=== PATIENT | male | born 1980 | race Caucasian/White ===

== ENCOUNTER 2020-10-06 13:53 | Emergency (ER) | payer MEDICAID, OTHER, SELFPAY ==
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
[2020-10-06 14:02] VITALS: BP 168/100; PULSE 76; RESP 18; TEMP 36.8; O2SAT 93; BMI 28.3
[2020-10-06] MEDS: iohexol 350 mg/mL 100 mL Btl IV (14:44)
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
[2020-10-06 15:40] VITALS: BP 170/89; PULSE 74; RESP 18; O2SAT 96
--- NOTE | 2020-10-06 15:41 | PC.NURSE ---
patient c/o pins and needles sensation to both hands, MD awared.
[2020-10-06 15:50] LABS: Basophils # 0.1 10^3/uL (0.0-0.1); Basophils % 0.4 %; Eosinophils # 0.2 10^3/uL (0.0-0.8); Eosinophils % 1.3 %; Hematocrit 42.4 % (42.0-52.0); Lymphocytes # 2.7 10^3/uL (0.8-4.8); Lymphocytes % 17.1 %; Mean Corpuscular Hemoglobin 30.1 pg (28.0-34.0); Mean Corpuscular Volume 91.2 fL (80-94); Mean Platelet Volume 11.1 fL (7.4-10.4); Monocytes # 1.1 10^3/uL (0.2-0.9); Monocytes % 6.6 %; Neutrophils # 11.86 10^3/uL (1.8-7.7); Neutrophils % 74.1 %; Nucleated Red Blood Cells % 0 %; Platelet Count 294 10^3/cmm (130-400); Red Blood Count 4.65 10^6/uL (4.1-5.3)
[2020-10-06 15:51] LABS: Add Urine Microscopic? NO; Charge for UA Resulting for Rev
[2020-10-06 15:59] LABS: Bilirubin Urine Neg (Negative); Blood Urine Neg (Negative); Glucose Urine UA Norm (Normal); Ketones Urine Negative (Negative); Leukocyte Esterase Urine Negative (Negative); Nitrate Urine Negative (Negative); Protein Urine Neg (Negative); Urine Appearance Clear (CLEAR); Urine Color Yellow (Yellow); Urobilinogen Urine Norm (Negative); pH Urine 5 (5-7)
[2020-10-06] MEDS: HYDROmorphone 1 mg/mL INJ 1 mL 0.5 MG IVP (16:03)
[2020-10-06 16:07] VITALS: BP 160/93; PULSE 72; RESP 16; O2SAT 95
[2020-10-06 16:22] LABS: Alanine Aminotransferase 29 U/L (0-41); Albumin Level 4.1 g/dL (3.5-5.2); Alcohol Level < 10 mg/dL (0-10); Alkaline Phosphatase 61 IU/L (40-130); Anion Gap 14.3 (5-19); Aspartate Amino Transferase 32 U/L (0-40); Blood Urea Nitrogen 11 mg/dL (6-20); Calcium 8.4 mg/dL (8.5-10.5); Carbon Dioxide 24 mmol/L (22-29); Chloride 102 mmol/L (98-107); Globulin 2.2 g/dL (1.3-4.6); Glomerular Filtration Rate 148.5 mL/min (90-130); Glucose 95 mg/dL (65-115); Osmolality Calculated 281 mOsm/kg (285-295); Potassium 4.3 mmol/L (3.5-5.1); Sodium 136 mmol/L (136-145); Total Bilirubin 0.2 mg/dL (0.15-1.2); Total Protein 6.3 g/dL (6.6-8.7)
[2020-10-06 16:23] LABS: Creatine Phosphokinase 556 U/L (39-308)
--- NOTE | 2020-10-06 16:42 | PC.NURSE ---
c-collar removed per MD order, patient tolerated well.
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
--- NOTE | 2020-10-10 13:22 | DCPLANNER ---
sow manager had message to schedule a follow up appointment for patient with ENT. sow manager emailed patients information to Gladis Yeung and Katherine at [facility] ENT clinic. Patients information will be printed and reviewed. Clinic will call patient with appointment information.
--- NOTE | 2020-10-11 08:09 | DCPLANNER ---
Anjana from the ENT clinic contacted window caser stating that when patient was contacted to schedule a follow up appointment, that patient declined appointment at this time, already had an appointment scheduled with Dr. Morales.
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
== END 2020-10-06 17:15 | disposition home or self-care (01) ==
PROVIDERS: Emergency Provider Family Medicine
DX: S02.2XXA Fracture of nasal bones, initial encounter for closed fracture (principal); V49.50XA Passenger injured in collision with unspecified motor vehicles in traffic accident, initial encounter
CPT/HCPCS: 36415; 70450; 70486; 71275; 72125; 72128; 72131; 73030; 73562; 74177; 80053; 80307; 81003; 82550; 85025; 96374; 99283; J1170; Q9967

== ENCOUNTER 2020-10-11 15:52 | Outpatient (CLI) | payer MEDICAID, SELFPAY ==
--- NOTE | 2020-10-11 16:36 | ECG_ITS ---
[facility] Test Date: 2020-10-11 Pat Name: Oliver Monaco Department: Room: Gender: Male Spouter: : 1980 Requested By: Ayo Bowman Order Number: [id number] Laya MD: Lizeth Hammond M.D. Measurements Intervals [place] Rate: 67 P: 57 NC: 179 QRS: 20 QRSD: 89 T: -21 QT: 374 QTc: 397 Interpretive Statements SINUS RHYTHM NONSPECIFIC T-WAVE ABNORMALITY Compared to ECG 01/20/2019 16:08:16 No significant changes Electronically Signed On 10-11-2020 23:04:22 CDT by Lizeth Hammond M.D. [email or web address]
== END 2020-10-11 15:53 | disposition home or self-care (01) ==
LOC: RT 15:59
PROVIDERS: Visit Provider Specialist
DX: S02.2XXA Fracture of nasal bones, initial encounter for closed fracture (principal); X58.XXXA Exposure to other specified factors, initial encounter
CPT/HCPCS: 93005

== ENCOUNTER → 2020-10-13 10:53 | Outpatient (BNVA) | payer OTHER, SELFPAY | PROVIDERS: Visit Provider Specialist | DX: Z01.812 Encounter for preprocedural laboratory examination (principal); Z20.822 Contact with and (suspected) exposure to COVID-19; Z11.52 Encounter for screening for COVID-19 | CPT/HCPCS: 87635 ==

== ENCOUNTER 2020-10-14 10:05 | Emergency (ER) | payer MEDICAID, SELFPAY ==
[2020-10-14 10:12] VITALS: BP 156/110; PULSE 92; RESP 15; TEMP 36.8; O2SAT 98; BMI 30.5
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
== END 2020-10-14 10:42 | disposition home or self-care (01) ==
PROVIDERS: Emergency Provider Physician Assistant
DX: S02.2XXA Fracture of nasal bones, initial encounter for closed fracture (principal); V89.2XXA Person injured in unspecified motor-vehicle accident, traffic, initial encounter
CPT/HCPCS: 99281

== ENCOUNTER 2020-10-17 06:43 | Day surgery (SDC) | payer MEDICAID, SELFPAY ==
[2020-10-16 18:10] VITALS: BMI 29.2
[2020-10-17] VITALS (19 sets, daily range): BP systolic 117–179; BP diastolic 74–122; PULSE 62–80; RESP 12–18; TEMP 36.3–36.8; O2SAT 95–99
[2020-10-17] MEDS: sodium chloride 0.9% 1,000 ML 30 ML IV (07:28)
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
[2020-10-17] MEDS: fentaNYL 50 mcg/mL INJ 2mL IVP ×2 (08:03→10:08)
--- NOTE | 2020-10-17 08:20 | W.PM.OPSUD ---
Surgery/Procedure H&P Update DATE OF PROCEDURE: October 17, 2020 DATE H&P PERFORMED: 10/11/20 H&P UPDATE INFORMATION: I have reviewed H&P completed within last 30 days, I have examined patient prior to procedure and No changes to prior documentation PREOP DIAGNOSIS: Displaced nasal fracture; nasal obstruction PLANNED PROCEDURE: Operation Date: 10/17/20 08:15 Proposed Procedures p Closed Reduction Nasal Fracture [id number](Not Applicable) - Ayo Morales MD s Septoturbinoplasty(Not Applicable) - Ayo Morales MD
[2020-10-17] MEDS: oxymetazoline 0.05% Nasal Spray 15 mL 1 SPRAY NOSTRIL-B ×2 (08:45→10:05)
[2020-10-17] MEDS: mineral oil light VIAL 10 mL MISCELLANE (09:20)
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
--- NOTE | 2020-10-17 10:03 | P.PCN_ITS ---
Documented by User: Nick Rodriguez CRNA 10/17/20 10:03 PACU note PACU note: VSS, Good respiratory effort, report to CARD CLOTHIER Post-Anesthesia Exam: awake
[2020-10-17] MEDS: mupirocin oint 22 gm 1 APPLIC NOSTRIL-B (10:07)
[2020-10-17] MEDS: HYDROmorphone 1 mg/mL INJ 1 mL 0.5 MG IVP (10:14)
[2020-10-17] MEDS: metoprolol tartrate 1 mg/1 mL SDV 5 mL 5 MG IV (10:29)
--- NOTE | 2020-10-17 10:52 | SUR.PHASEI ---
pt dozing mostly states pain is better, BP NOW COMING DOWN SEE DELROY LAMBERT AFTER DR COLVIN CONSULTED, PT REPORT AT BEDSIDE PT TO PHASE2 TO CONTINUE TO WATCH PT BP.
[2020-10-17] MEDS: oxyCODONE-APAP 5-325 mg Tablet 1 TAB PO (11:11)
[2020-10-17] MEDS: hyDRALAzine 20 mg/mL INJ 1 mL 10 MG IVP (11:34)
--- NOTE | 2020-10-17 14:58 | ANE.PACU2 ---
Inpatient post-anesthesia follow up: Airway intact: Yes Vital signs: Temperature 98.2 F Pulse Rate 62 Respiratory Rate 16 Blood Pressure 117/74 Pulse Oximetry 99 Oxygen Delivery Me thod Room Air Oxygen Flow Rate Fraction of Inspir ed Oxygen Hydration adequate: Yes Nausea and vomiting: No Pain level: 3 Mental status: Baseline Additional Comments: Difficult blood pressure control
== END 2020-10-17 12:20 | disposition home or self-care (01) ==
PROVIDERS: Visit Provider Specialist
PROC: 0NSBXZZ Reposition Nasal Bone, External Approach (ICD-10-PCS; CPT 21337; principal; 2020-10-17 08:05)
PROC: (CPT 30520; 2020-10-17 08:05)
DX: S02.2XXA Fracture of nasal bones, initial encounter for closed fracture (principal); X58.XXXA Exposure to other specified factors, initial encounter; J34.89 Other specified disorders of nose and nasal sinuses; J44.9 Chronic obstructive pulmonary disease, unspecified; I10 Essential (primary) hypertension
CPT/HCPCS: 21337; 12345; 88305; 88311; 96374; J0330; J0360; J1100; J1170; J2405; J2704; J3010; J3490; J7030

== ENCOUNTER → 2020-11-07 08:26 | Outpatient (BNVA) | payer MEDICAID, SELFPAY | PROVIDERS: Referring Provider Family Medicine; Visit Provider Orthopaedic Surgery | DX: M47.892 Other spondylosis, cervical region (principal); M47.896 Other spondylosis, lumbar region; M54.2 Cervicalgia | CPT/HCPCS: 72050; 72110 ==

== ENCOUNTER 2020-11-12 11:28 | Emergency (ER) | payer MEDICAID, SELFPAY ==
[2020-11-12 11:56] VITALS: BP 188/108; PULSE 71; RESP 18; TEMP 36.7; O2SAT 98; BMI 30.9
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
[2020-11-12 12:13] VITALS: BP 171/101; PULSE 73; RESP 16; O2SAT 96
[2020-11-12 12:28] VITALS: BP 161/104; PULSE 73; RESP 18; O2SAT 97
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
--- NOTE | 2020-11-14 10:21 | DCPLANNER ---
mine manager had message to speak with patient about getting established with a primacy care physician. mine manager spoke with patient, he stated that he would like to get established with a primary care physician, but does not have insurance at this time. Patient stated that he would like for case hardener to send him the associate financial planner applications for the hospital to fill out and turn back in. After patient finds out if he will qualify for associate financial planner, that he will then get established with someone.
== END 2020-11-12 12:40 | disposition home or self-care (01) ==
PROVIDERS: Emergency Provider Physician Assistant
DX: M79.642 Pain in left hand (principal); M25.551 Pain in right hip; F17.210 Nicotine dependence, cigarettes, uncomplicated; V89.2XXA Person injured in unspecified motor-vehicle accident, traffic, initial encounter
CPT/HCPCS: 73130; 73502; 99283

== ENCOUNTER 2020-11-15 10:56 | Emergency (ER) | payer MEDICAID, SELFPAY ==
[2020-11-15 11:08] VITALS: BP 177/126; PULSE 103; RESP 16; TEMP 36.2; O2SAT 96; BMI 29.2
--- NOTE | 2020-11-15 12:24 | ED_ITS ---
HPI - General Adult General: Chief complaint: General Medical Stated complaint: NOSE PAIN Time Seen by Provider: 11/15/20 11:15 History of Present Illness: HPI narrative: Patient states his nose did not feel right. Just had a follow-up visit with his ENT doctor who said everything was fine. MD complaint: Nasal discomfort Associated symptoms: Reports no associated symptoms; Deny chest pain, dyspnea, headache(s), nausea, rash or vomiting Review of Systems Const: Denies: fever(s), chills or body aches Eyes: Denies: change in vision or blurry vision ENMT: Reports: other (Says nose bridge has a divot in); Denies: throat pain or nasal congestion Card: Denies: chest pain or dyspnea on exertion Resp: Denies: dyspnea, productive cough or non-productive cough GI: Denies: abdominal pain, nausea or vomiting : Denies: difficulty urinating Musc: Denies: extremity pain Skin/Breast: Denies: rash Neuro: Denies: headache(s) Psych: Denies: anxiety or depression Dillan/Lymph: Denies: easy bruising PFSH ED PFSH: Social History Smoking and tobacco status: current every day smoker Physical Exam Const: COMMON NORMALS: no acute distress HENMT: NOSE: Other nasal findings present (There is slight divot on the nasal bridge. Mild swelling going on anterior) Psych: COMMON NORMALS: mental status grossly normal Course Vital Signs: Vital signs: Vital Signs Temperature 97.2 F L 11/15/20 11:08 Pulse Rate 103 H 11/15/20 11:08 Respiratory Rate 16 11/15/20 11:08 Blood Pressure 177/126 11/15/20 11:08 Pulse Oximetry 96 11/15/20 11:08 MDM - General Adult MDM Narrative: Medical decision making narrative: Noticed still has slight swelling in it in which more likely is the cause of his problem he can use Afrin nose spray which he is watch which she said helped and has been using contact solution in his nose and I asked him to stop that and just use [place]. Is a follow-up with ear nose throat doctor. Discharge Plan Discharge Patient Disposition: Home Clinical Impression: Nasal discomfort Condition: Stable Prescriptions: No Action prednisone 20 mg tablet 20 mg PO DAILY Qty: 15 RF: 0 Percocet 5-325 mg tablet 1 tab PO Q6H PRN (Reason: pain) Qty: 25 RF: 0 Discharge Orders: Discharge ED (Routine); Ordered 11/15/20 Ordered By: Eleuterio Oakes Discharge Diet: Usual diet Discharge Activity: Resume usual activity Activity Restrictions/Additional Instructions: Follow-up with surgeon as directed. Can use Afrin nose spray. Can use nasal [place]. Coding Level of Care Code ED Data Scientist for Amanda Boone
== END 2020-11-15 11:35 | disposition home or self-care (01) ==
PROVIDERS: Emergency Provider Nurse Practitioner Family
DX: J34.89 Other specified disorders of nose and nasal sinuses (principal); F17.200 Nicotine dependence, unspecified, uncomplicated
CPT/HCPCS: 99281

== ENCOUNTER 2020-12-05 15:01 | Outpatient (RCR) | payer MEDICAID, SELFPAY | END 2020-12-05 23:59 | disposition home or self-care (01) | LOC: SPT 15:01 | PROVIDERS: Referring Provider Orthopaedic Surgery; Visit Provider Orthopaedic Surgery | DX: M54.2 Cervicalgia (principal); M54.5 Low back pain | CPT/HCPCS: 97110; 97161 ==

== ENCOUNTER 2020-12-07 13:58 | Outpatient (RCR) | payer MEDICAID, SELFPAY | END 2021-01-04 23:59 | disposition home or self-care (01) | LOC: SPT 13:58 | PROVIDERS: Referring Provider Orthopaedic Surgery; Visit Provider Orthopaedic Surgery | DX: M54.2 Cervicalgia (principal); M54.5 Low back pain | CPT/HCPCS: 97110; 97530 ==

== ENCOUNTER 2021-01-05 06:00 | Outpatient (RCR) | payer MEDICAID, SELFPAY | END 2021-02-04 23:59 | disposition home or self-care (01) | LOC: SPT 06:00 | PROVIDERS: Referring Provider Orthopaedic Surgery; Visit Provider Orthopaedic Surgery | DX: M54.50 Low back pain, unspecified (principal); M54.2 Cervicalgia | CPT/HCPCS: 97110 ==

== ENCOUNTER 2021-03-20 16:24 | Outpatient (CLI) | payer BC, MEDICAID, SELFPAY ==
--- NOTE | 2021-03-20 16:45 | MR_ITS ---
WS: [id number] MRI LUMBAR SPINE NONCONTRAST TECHNIQUE: Sagittal T1, T2 and STIR imaging. Axial T1 and T2 imaging. CLINICAL INFORMATION: M43.17 - Spondylolisthesis, lumbosacral region COMPARISON: CT lumbar 10/25 FINDINGS: Mild lumbar curve. No acute compression. No high-grade central canal stenosis. Slight anterolisthesis L5 on S1 unchanged since prior CT October 06, 2020. Bilateral pars defects L5-S1. L1-L2: Normal. L2-L3: Normal. L3-L4: Minimal annular bulging. Slight effacement of ventral thecal sac. Spinal canal and foramen are patent. Mild facet arthropathy. L4-L5: Mild annular bulging with slight effacement of the ventral thecal sac. Eccentric disc bulging results in mild left greater than right foraminal narrowing. Mild facet arthropathy. Spinal canal is patent. L5-S1: Grade 1 anterolisthesis L5 on S1 with chronic bilateral pars defects. Mild annular bulging wit h slight effacement of ventral thecal sac. Spinal canal and foramen are patent. Mild facet arthropath y. A few tiny protrusions in the thoracic spine seen on the aircraft quality control inspector imaging more prominent at T5-T6 and T7 -T8. Slight contact of the thoracic cord with mild central canal stenosis at T7-T8. Mild central mariana l stenosis in cervical spine at C4-C6 with slight disc osteophyte complexes. Visualized pelvic bony structures: Normal. Paravertebral soft tissues: Normal. MR/MR lumbar spine wo con* [id number] IMPRESSION: 1. Grade 1 anterolisthesis L5 on S1 with chronic bilateral pars defects. Spina l canal and foramen are patent at this level. 2. Mild annular bulging L4-5 with mild left L4-5 foraminal narrowing. 3. Mild facet arthropathy L3-L5. 4. Shallow disc protrusions in the thoracic spine seen on the aircraft quality control inspector imaging at T5-T6 and T7-T8 with mild central canal stenosis at T7-T8. This could be furth er evaluated with thoracic spine MRI .
== END 2021-03-20 16:25 | disposition home or self-care (01) ==
LOC: RADSHAW 16:28
PROVIDERS: PCP Family Medicine Adult Medicine; Visit Provider Orthopaedic Surgery
DX: M43.17 Spondylolisthesis, lumbosacral region (principal); M51.24 Other intervertebral disc displacement, thoracic region; M47.816 Spondylosis without myelopathy or radiculopathy, lumbar region; M51.26 Other intervertebral disc displacement, lumbar region
CPT/HCPCS: 72148

== ENCOUNTER → 2021-04-10 14:48 | Outpatient (BNVA) | payer BC, MEDICAID, SELFPAY | PROVIDERS: PCP Family Medicine Adult Medicine; Visit Provider Family Medicine Adult Medicine | DX: G47.00 Insomnia, unspecified (principal); I10 Essential (primary) hypertension | CPT/HCPCS: 80053; 83036; 84443; 85025; G0103 ==

== ENCOUNTER → 2021-05-03 09:59 | Outpatient (BNVA) | payer BC, MEDICAID, SELFPAY | PROVIDERS: PCP Family Medicine Adult Medicine; Referring Provider Physician Assistant; Visit Provider Anesthesiology Pain Medicine | DX: M51.16 Intervertebral disc disorders with radiculopathy, lumbar region (principal); M47.816 Spondylosis without myelopathy or radiculopathy, lumbar region; M43.17 Spondylolisthesis, lumbosacral region; M79.604 Pain in right leg; M79.605 Pain in left leg; F17.200 Nicotine dependence, unspecified, uncomplicated | CPT/HCPCS: 99204 ==

== ENCOUNTER → 2021-05-15 14:39 | Outpatient (BNVA) | payer BC, MEDICAID, SELFPAY | PROVIDERS: PCP Family Medicine Adult Medicine; Visit Provider Anesthesiology Pain Medicine | DX: M54.16 Radiculopathy, lumbar region (principal); M79.604 Pain in right leg; F17.210 Nicotine dependence, cigarettes, uncomplicated | CPT/HCPCS: 64483; 64484; J1100; J3490 ==

== ENCOUNTER → 2021-05-29 10:17 | Outpatient (BNVA) | payer BC, MEDICAID, SELFPAY | PROVIDERS: PCP Family Medicine Adult Medicine; Visit Provider Anesthesiology Pain Medicine | DX: M43.17 Spondylolisthesis, lumbosacral region (principal); M51.16 Intervertebral disc disorders with radiculopathy, lumbar region; M47.816 Spondylosis without myelopathy or radiculopathy, lumbar region; M79.604 Pain in right leg; F17.210 Nicotine dependence, cigarettes, uncomplicated | CPT/HCPCS: 99214 ==

== ENCOUNTER 2021-06-02 09:59 | Outpatient (CLI) | payer BC, MEDICAID, SELFPAY ==
--- NOTE | 2021-06-02 10:12 | MR_ITS ---
WS: [id number] MRI RIGHT KNEE HISTORY: M25.561 - Pain in right knee COMPARISON: Radiographs 03/24/2019 Anterior cruciate ligament: Completely torn ACL. No normal fibers are identified. There is posterior translation of the femoral condyle with relationship to the tibial plateau. Posterior cruciate ligament: Posterior buckling due to the torn ACL. Medial collateral ligament: Mild increased signal in the MCL at the level of the knee joint. No full- thickness tear. Posterior lateral corner structures: There is a very small amount of increased signal in the proximal lateral collateral ligament. No full-thickness tear. Medial menisci: Small caliber anterior posterior 1's with mild increased signal fraying along the long faces. Degenerative changes with no tear identified. Lateral meniscus: Increased T2 signal extending over length of the posterior horn. Extending from the middle to posterior third of the meniscus and extends to the superior and inferior articular surface s. Extensor mechanism: Distal quadriceps tendon and patellar tendons are intact. Fluid and soft tissue: Very small suprapatellar joint effusion. No Herrera's cyst. Osseous and articular structures: Patellofemoral compartment: Very mild narrowing of the patellofemoral compartment. The cartilage is w ell preserved with only a small amount of chondromalacia involving the medial most patellar facet. Medial compartment: Mild narrowing medial compartment with marginal osteophytes. Moderate chondromala calli involving the cartilage. No marrow edema. Lateral compartment: Mild narrowing of the lateral compartment with mild thinning of the cartilage an d marginal osteophytes. MR/MR knee RT wo con* [id number] IMPRESSION: 1. Complete tear ACL. 2. Degenerative changes with fraying involving the anterior and posterior meni sci within the medial compartment. No tear. Most significant fraying involves t he posterior horn with blunting of the free edge. 3. Minimal chondromalacia medial most patellar facet. 4. Mild narrowing of the medial and lateral compartments with moderate chondro malacia in the medial compartment and mild in the lateral compartment. 5. No marrow edema or fracture.
== END 2021-06-02 10:00 | disposition home or self-care (01) ==
LOC: RAD 10:00
PROVIDERS: PCP Family Medicine Adult Medicine; Visit Provider Physician Assistant
DX: S83.511A Sprain of anterior cruciate ligament of right knee, initial encounter (principal); X58.XXXA Exposure to other specified factors, initial encounter; M22.41 Chondromalacia patellae, right knee
CPT/HCPCS: 73721; 99204

== ENCOUNTER 2021-06-04 17:42 | Emergency (ER) | payer BC, MEDICAID, SELFPAY ==
[2021-06-04 17:56] VITALS: BP 131/85; PULSE 94; RESP 16; TEMP 37.5; O2SAT 96; BMI 28.3
--- NOTE | 2021-06-04 18:02 | ED_ITS ---
HPI - Skin/Abscess/Foreign Bdy General: Chief complaint: Skin/Abscess/Foreign Body Stated complaint: PT states May have an Infection in thumb Time Seen by Provider: 06/04/21 18:02 History of Present Illness: 41-year-old male patient comes in today with complaints of infection to the right thumb. Patient reports that his dog 3 to 4 days ago had scratched him on the dorsal thumb. Since then he has had some drainage from the wound. Patient reports opening the wound and keeping it draining. Patient does have some noticeabe red streaking to the distal forearm. Normal range of motion of the hand is noted. Associated symptoms: Deny fever(s) Review of Systems Const: Denies: fever(s) Musc: Reports: extremity pain (Right thumb) Skin/Breast: Reports: erythema PFSH ED PFSH: Medical History Anxiety and depression HTN (hypertension) New onset type 2 diabetes mellitus HgA1C 04-10-2021 6.3 Smoker Spondylolisthesis at L5-S1 level Social History Smoking and tobacco status: current every day smoker Second hand smoke exposure: Yes Alcohol intake: never Marital status: Current occupational status: unemployed Physical Exam Const: COMMON NORMALS: alert HENMT: COMMON NORMALS: atraumatic HEAD & SCALP: atraumatic Neck/C-Spine: COMMON NORMALS: full ROM Resp: COMMON NORMALS: normal respiratory effort and clear to auscultation bilaterally AUSCULTATION: clear to auscultation bilaterally Cardio: COMMON NORMALS: regular rate and regular rhythm RATE: regular rate RHYTHM: regular rhythm Extremity: RIGHT UPPER EXTREMITY: Yes hand & digits (Pustular lesion noted to the dorsal proximal phalanx of the thumb) Right hand and digits: Yes inspection, Yes palpation, Yes ROM exam, Yes neurovascular exam and Yes tendon exam Neuro: SENSORIUM/ORIENTATION: Yes alert Psych: COMMON NORMALS: cooperative Skin: WOUNDS: Yes wounds noted (Dorsal right thumb, 6 cm streaking) with surrounding erythema Procedures Abscess I/D Site: hand (Right thumb) Technique: other (Incise bevel 18-gauge needle) Amount of fluid expressed (mL): 0.1 Course Vital Signs: Vital signs: Vital Signs Temperature 99.5 F 06/04/21 18:07 Pulse Rate 94 06/04/21 18:07 Respiratory Rate 16 06/04/21 18:07 Blood Pressure 131/85 06/04/21 18:07 Pulse Oximetry 96 06/04/21 18:07 MDM - Skin/Abscess/Foreign Bdy Medicial Decision Making Patient comes in with a wound to the back of his right thumb at the mid proximal phalanx. Patient does have a wound that has clear to purulent drainage. Patient has surrounding erythema with streaking about 6 cm. Normal range of motion of the thumb is noted. Cap refill is intact. Differential diagnosis includes but not limited to cellulitis, abscess, lymphangitis. Wound was opened up with the bevel of 18-gauge needle, minimal drainage was noted. Patient is afebrile and appears nontoxic. We will start patient on clindamycin 450 mg, patient will be continued on 300 mg 3 times a day for next 7 days. Patient was encouraged to keep the wound clean and dry. Avoid pressing or sticking the wound with needles. Patient reports understanding of care plan need for follow- up with primary care as needed. Or return to the ER for worsening symptoms. Discharge Plan Discharge Patient Disposition: Home Clinical Impression: Cellulitis Qualifiers: Site of cellulitis: extremity Site of cellulitis of extremity: finger Laterality: right Qualified Code(s): L03.011 - Cellulitis of right finger Condition: Stable Prescriptions: New clindamycin HCl 300 mg capsule 300 mg PO TID 7 Days Qty: 21 0RF No Action medical marijuana inhalation 0RF gabapentin 300 mg capsule 300 mg PO TID Qty: 90 0RF (DME) TENS Replacement Back Pads 3.74 X 7.48 pad See Rx Instructions miscellaneous .MEDSUPPLY Qty: 2 0RF Rx Instructions: As directed (DME) TENS 502 Device See Rx Instructions .MEDSUPPLY Qty: 1 0RF Rx Instructions: As directed (DME) TENS unit and electrodes Combo Pack See Rx Instructions .ROUTE Qty: 1 0RF Rx Instructions: As directed lisinopril 20 mg tablet 20 mg PO DAILY Qty: 30 5RF paroxetine HCl 20 mg tablet 20 mg PO .qhs Qty: 30 1RF nicotine 21-14-7 mg/24 hr patch, TD daily, sequential See Rx Instructions transdermal .COMPLEX Qty: 56 0RF Rx Instructions: apply 1-21 mg NICOTINE PATCH daily for 28 days; follow with 1-14 mg PATCH daily for 14 days, then 1-7mg PATCH daily for 14 days transdermal guaifenesin 1,200 mg tablet extended release 12hr 1,200 mg PO BID PRN (Reason: cough & congestion) Qty: 60 1RF metformin 500 mg tablet 500 mg PO DAILY Qty: 30 5RF Discharge Orders: Discharge ED (Routine); Ordered 06/04/21 Ordered By: Mynor Muñiz Referrals: Andrew Schuler MD [Primary Care Provider] - Discharge Diet: Usual diet Discharge Activity: Increase activity as tolerated Patient Instructions: Cellulitis (ED), Opioid Safety Activity Restrictions/Additional Instructions: Take antibiotics as directed. Drink plenty of water with medication. Activity as tolerated. Monitor for worsening swelling, fever greater than 100.4, or new concerns. Follow-up with primary care in 3 days for recheck. Return to ER for new concerns. Coding Level of Care Code ED Php [employer] Developer for Amanda Boone
[2021-06-04 18:07] VITALS: BP 131/85; PULSE 94; RESP 16; TEMP 37.5; O2SAT 96
[2021-06-04] MEDS: clindamycin 150 mg Capsule 450 MG PO (18:19)
[2021-06-04] MEDS: bacitracin ointment Pkt 1 EACH TOPICAL (18:20)
[2021-06-04] MEDS: HYDROcodone-acetaminophen 5-325 mg Tablet 2 TAB PO (18:32)
== END 2021-06-04 18:35 | disposition home or self-care (01) ==
PROVIDERS: Emergency Provider Nurse Practitioner Family; PCP Family Medicine Adult Medicine
DX: L03.011 Cellulitis of right finger (principal); I10 Essential (primary) hypertension; E11.9 Type 2 diabetes mellitus without complications; F17.210 Nicotine dependence, cigarettes, uncomplicated
CPT/HCPCS: 99283

== ENCOUNTER → 2021-06-06 11:06 | Outpatient (BNVA) | payer BC, MEDICAID, SELFPAY | PROVIDERS: PCP Family Medicine Adult Medicine; Visit Provider Family Medicine Adult Medicine | DX: E11.9 Type 2 diabetes mellitus without complications (principal) | CPT/HCPCS: 83036 ==

== ENCOUNTER → 2021-06-13 10:41 | Outpatient (BNVA) | payer BC, MEDICAID, SELFPAY | PROVIDERS: PCP Family Medicine Adult Medicine; Referring Provider Family Medicine Adult Medicine; Visit Provider Orthopaedic Surgery | DX: S83.511A Sprain of anterior cruciate ligament of right knee, initial encounter (principal); X58.XXXA Exposure to other specified factors, initial encounter; M17.12 Unilateral primary osteoarthritis, left knee | CPT/HCPCS: 73560; 73565 ==

== ENCOUNTER → 2021-06-25 10:21 | Outpatient (BNVA) | payer BC, MEDICAID, SELFPAY | PROVIDERS: PCP Family Medicine Adult Medicine; Visit Provider Anesthesiology Pain Medicine | DX: M43.17 Spondylolisthesis, lumbosacral region (principal); M51.16 Intervertebral disc disorders with radiculopathy, lumbar region; M47.816 Spondylosis without myelopathy or radiculopathy, lumbar region; S83.511A Sprain of anterior cruciate ligament of right knee, initial encounter; M79.604 Pain in right leg; F17.210 Nicotine dependence, cigarettes, uncomplicated; X58.XXXA Exposure to other specified factors, initial encounter | CPT/HCPCS: 99214 ==

== ENCOUNTER 2021-07-10 12:34 | Emergency (ER) | payer BC, MEDICAID, SELFPAY ==
[2021-07-10 12:44] VITALS: BP 119/78; PULSE 101; RESP 16; TEMP 36.3; O2SAT 97; BMI 29.1
[2021-07-10 15:17] LABS: Basophils # 0.1 10^3/uL (0.0-0.1); Basophils % 0.4 %; Eosinophils # 0.3 10^3/uL (0.0-0.8); Eosinophils % 1.9 %; Hematocrit 51.3 % (42.0-52.0); Hemoglobin 17.3 g/dL (11.7-16.6); Lymphocytes # 4.2 10^3/uL (0.8-4.8); Lymphocytes % 30.2 %; Mean Corpuscular HGB Conc 33.7 g/dL (30.0-36.0); Mean Corpuscular Hemoglobin 31.1 pg (28.0-34.0); Mean Corpuscular Volume 92.1 fl (80-94); Monocytes % 7.3 %; Neutrophils # 8.24 10^3/uL (1.8-7.7); Neutrophils % 59.8 %; Nucleated Red Blood Cells % 0 %; Platelet Count 351 10^3/cmm (130-400); Red Blood Count 5.57 10^6/uL (4.1-5.3); Red Cell Distribution Width 13.3 % (12.1-15.1); White Blood Count 13.8 10^3/uL (4.0-10.0)
[2021-07-10 15:30] LABS: Alanine Aminotransferase 20 U/L (0-41); Albumin Level 5.3 g/dL (3.5-5.2); Alkaline Phosphatase 81 IU/L (40-130); Anion Gap 20.4 (5-19); Aspartate Amino Transferase 20 U/L (0-40); Blood Urea Nitrogen 18 mg/dL (6-20); Calcium 10.2 mg/dL (8.5-10.5); Carbon Dioxide 22 mmol/L (22-29); Chloride 99 mmol/L (98-107); Globulin 3.1 g/dL (1.3-4.6); Glomerular Filtration Rate 81.9 mL/min (90-130); Glucose 104 mg/dL (65-115); Lipase 37 U/L (13-60); Osmolality Calculated 286 mOsm/kg (285-295); Potassium 4.4 mmol/L (3.5-5.1); Sodium 137 mmol/L (136-145); Total Bilirubin 0.2 mg/dL (0.15-1.2); Total Protein 8.4 g/dL (6.6-8.7)
[2021-07-10 15:38] VITALS: BP 124/74; PULSE 82; RESP 14; O2SAT 97
[2021-07-10] MEDS: sodium chloride 0.9% 1,000 ML 999 ML IV (15:39)
[2021-07-10] MEDS: ondansetron 2 mg/ML SDV 2 mL 4 MG IVP (15:39)
[2021-07-10 15:44] LABS: Add Urine Microscopic? YES; Bilirubin Urine 1+ (Negative); Blood Urine Neg (Negative); Glucose Urine UA Norm (Normal); Ketones Urine Negative (Negative); Leukocyte Esterase Urine Negative (Negative); Nitrate Urine Negative (Negative); Protein Urine 1+ (Negative); Urine Appearance Hazy (CLEAR); Urine Color Amber (Yellow); Urobilinogen Urine 1 mg/dL (Negative); pH Urine 5 (5-7)
[2021-07-10 15:45] LABS: Add Urine Culture? Yes; Bacteria Urine TRACE /hpf; Mucus Urine 4+ /hpf; RBC Urine RARE /hpf (0-2); Squamous Epithelial Cell Urine 0-4 /hpf (0-5); WBC Urine 0-4 /hpf (0-5)
--- NOTE | 2021-07-10 15:51 | ED_ITS ---
HPI - Nausea/Vomiting/Diarrhea General: Chief complaint: Nausea/Vomiting/Diarrhea Stated complaint: n/v/d , flu like symptoms Time Seen by Provider: 07/10/21 15:11 Source: patient Mode of arrival: ambulatory Limitations: no limitations History of Present Illness: 41-year-old male presents emergency room with complaint of nausea and vomiting mild abdominal cramping began 2 days ago. He has had a little bit of blood streaking in the stools but he states that predates the onset of the symptoms he has had a lot of nausea and some vomiting no coffee-ground emesis no hematemesis no dysuria urgency or frequency no specific abdominal pain at this time MD elicited complaint: nausea, vomiting and diarrhea Onset (ago): day(s) (2) Description of vomiting: watery and bilious Description of diarrhea: blood (Street) Associated nausea: Yes Associated abdominal pain: No Location of pain: None Exacerbating factors: none Relieving factors: none Associated symtoms: Reports bloating, anorexia, malaise, nausea and weakness; Denies altered mental status, anxiety, change in vision, chest pain, cough, diaphoresis, decreased urine output, dizziness, dysuria, epistaxis, fatigue, fecal incontinence, fevers/chills, headache(s), myalgias, numbness, palpitations, rash, short of breath, syncope, tenesmus or tinnitus Review of Systems Const: Reports: malaise; Denies: fatigue or diaphoresis Eyes: Denies: change in vision ENMT: Denies: tinnitus or epistaxis Card: Denies: chest pain, palpitations or syncope Resp: Denies: dyspnea, productive cough or non-productive cough GI: Reports: nausea and bloating; Denies: fecal incontinence : Denies: dysuria Skin/Breast: Denies: rash or pruritus Neuro: Denies: headache(s) or dizziness Psych: Denies: anxiety PFSH ED PFSH: Medical History Anxiety and depression Complete tear of right ACL HTN (hypertension) New onset type 2 diabetes mellitus HgA1C 04-10-2021 6.3 Smoker Spondylolisthesis at L5-S1 level Social History Smoking and tobacco status: current every day smoker Second hand smoke exposure: Yes Alcohol intake: never Marital status: Current occupational status: unemployed Physical Exam Const: COMMON NORMALS: no acute distress EXAM LIMITATIONS: no altered mental status GENERAL APPEARANCE: cooperative and comfortable OR IENTATION/CONSCIOUSNESS: Yes awake, Yes oriented to person, Yes oriented to place and Yes oriented to time HENMT: COMMON NORMALS: normocephalic, atraumatic and hearing grossly normal bilaterally HEAD & SCALP: normocephalic and atraumatic Neck/C-Spine: COMMON NORMALS: no JVD Resp: COMMON NORMALS: normal respiratory effort, No retractions, No use of accessory muscles and clear to auscultation bilaterally AUSCULTATION: clear to auscultation bilaterally Cardio: COMMON NORMALS: no JVD, regular rate, regular rhythm and No murmurs present (Cardio) RATE: regular rate RHYTHM: regular rhythm GI: COMMON NORMALS: Soft to palpation and No hepatosplenomegaly present AUSCULTATION: Yes normoactive bowel sounds PALPATION: Yes Soft to palpation, No Tenderness to palpation present (GI), No Guarding due to palpation present (GI) and Yes No hepatosplenomegaly present Extremity: COMMON NORMALS: normal to inspection, capillary refill normal, no clubbing, cyanosis or edema, no calf tenderness and no pedal edema Neuro: SENSORIUM/ORIENTATION: Yes oriented to person, Yes oriented to place and Yes oriented to time Skin: COMMON NORMALS: no rashes or lesions noted GENERAL SKIN EXAM: no rashes or lesions noted Course Vital Signs: Vital signs: Vital Signs Temperature 97.4 F L 07/10/21 12:44 Pulse Rate 82 07/10/21 15:38 Respiratory Rate 14 07/10/21 15:38 Blood Pressure 124/74 07/10/21 15:38 Pulse Oximetry 97 07/10/21 15:38 MDM - Nausea/Vomiting/Diarrhea Medical Decision Making Labs unremarkable. Because of patient is complaining of blood in the stool prior to the onset of symptoms we will go and get stool cultures and C. difficile. Although it does not sound as if he is likely to have C. difficile he is not had any mucousy stool has not recently been on any antibiotics. Clear liquid diet for next 24 to 48 hours Zofran to use as needed. Pending the results of the stool cultures and C. difficile if these are negative he should follow-up with Dr. Schuler to have a colonoscopy scheduled at some point in the future given he has persistent hematochezia. Medical Records I reviewed the patient's medical records. Lab Data I reviewed the patient's lab results. : 07/10/21 15:00 07/10/21 15:00 Laboratory Results WBC 13.8 10^3/uL (4.0-10.0) H 07/10/21 15:00 RBC 5.57 10^6/uL (4.1-5.3) H 07/10/21 15:00 Hgb 17.3 g/dL (11.7-16.6) H 07/10/21 15:00 Hct 51.3 % (42.0-52.0) 07/10/21 15:00 MCV 92.1 fl (80-94) 07/10/21 15:00 MCH 31.1 pg (28.0-34.0) 07/10/21 15:00 MCHC 33.7 g/dL (30.0-36.0) 07/10/21 15:00 RDW 13.3 % (12.1-15.1) 07/10/21 15:00 Plt Count 351 10^3/cmm (130-400) 07/10/21 15:00 MPV 11.0 fL (7.4-10.4) H 07/10/21 15:00 Neut % (Auto) 59.8 % 07/10/21 15:00 Lymph % (Auto) 30.2 % 07/10/21 15:00 Lander % (Auto) 7.3 % 07/10/21 15:00 Eos % (Auto) 1.9 % 07/10/21 15:00 Baso % (Auto) 0.4 % 07/10/21 15:00 Neut # (Auto) 8.24 10^3/uL (1.8-7.7) H 07/10/21 15:00 Lymph # (Auto) 4.2 10^3/uL (0.8-4.8) 07/10/21 15:00 Lander # (Auto) 1.0 10^3/uL (0.2-0.9) H 07/10/21 15:00 Eos # (Auto) 0.3 10^3/uL (0.0-0.8) 07/10/21 15:00 Baso # (Auto) 0.1 10^3/uL (0.0-0.1) 07/10/21 15:00 Nucleated RBC % (auto) 0 % 07/10/21 15:00 Nucleated RBCs # 0.0 /100WBC 07/10/21 15:00 Sodium 137 mmol/L (136-145) 07/10/21 15:00 Potassium 4.4 mmol/L (3.5-5.1) 07/10/21 15:00 Chloride 99 mmol/L (98-107) 07/10/21 15:00 Carbon Dioxide 22 mmol/L (22-29) 07/10/21 15:00 Anion Gap 20.4 (5-19) H 07/10/21 15:00 BUN 18 mg/dL (6-20) 07/10/21 15:00 Creatinine 1.0 mg/dL (0.7-1.2) 07/10/21 15:00 GFR Calculation 81.9 mL/min (90-130) L 07/10/21 15:00 Glucose 104 mg/dL (65-115) 07/10/21 15:00 Calculated Osmolality 286 mOsm/kg (285-295) 07/10/21 15:00 Calcium 10.2 mg/dL (8.5-10.5) 07/10/21 15:00 Total Bilirubin 0.2 mg/dL (0.15-1.2) 07/10/21 15:00 AST 20 U/L (0-40) 07/10/21 15:00 ALT 20 U/L (0-41) 07/10/21 15:00 Alkaline Phosphatase 81 IU/L (40-130) 07/10/21 15:00 Total Protein 8.4 g/dL (6.6-8.7) 07/10/21 15:00 Albumin 5.3 g/dL (3.5-5.2) H 07/10/21 15:00 Globulin 3.1 g/dL (1.3-4.6) 07/10/21 15:00 Lipase 37 U/L (13-60) 07/10/21 15:00 Urine Color Mónica (Yellow) 07/10/21 15:15 Urine Appearance Hazy (CLEAR) A 07/10/21 15:15 Urine pH 5 (5-7) 07/10/21 15:15 Ur Specific [place] 1.020 (1.005-1.030) 07/10/21 15:15 Urine Protein 1+ (Negative) H 07/10/21 15:15 Urine Glucose (UA) Norm (Normal) 07/10/21 15:15 Urine Ketones Negative (Negative) 07/10/21 15:15 Urine Blood Neg (Negative) 07/10/21 15:15 Urine Nitrate Negative (Negative) 07/10/21 15:15 Urine Bilirubin 1+ (Negative) H 07/10/21 15:15 Urine Urobilinogen 1 mg/dL (Negative) H 07/10/21 15:15 Ur Leukocyte Esterase Negative (Negative) 07/10/21 15:15 Urine RBC Rare /hpf (0-2) 07/10/21 15:15 Urine WBC 0-4 /hpf (0-5) H 07/10/21 15:15 Ur Squamous Epith Cells 0-4 /hpf (0-5) H 07/10/21 15:15 Amorphous Sediment Not Reportable 07/10/21 15:15 Urine Bacteria Trace /hpf (NONE) 07/10/21 15:15 Urine Mucus 4+ /hpf 07/10/21 15:15 Discharge Plan Discharge Patient Disposition: Home Clinical Impression: Gastroenteritis, Hematochezia Condition: Stable Prescriptions: New promethazine 25 mg tablet 25 mg PO Q6H PRN (Reason: nausea and vomiting) Qty: 20 0RF No Action medical marijuana inhalation 0RF gabapentin 300 mg capsule 300 mg PO TID Qty: 90 0RF (DME) blood-glucose meter Misc See Rx Instructions .Route Qty: 1 0RF Rx Instructions: As directed, check blood sugar, once, daily. (DME) Blood Glucose Test Strip See Rx Instructions .Route Qty: 50 0RF Rx Instructions: As directed, check blood sugar, once, daily. (DME) lancets [Easy Touch Lancets] 30 gauge misc See Rx Instructions .Route Qty: 100 0RF Rx Instructions: As directed, check blood sugar, once, daily. lisinopril 20 mg tablet 20 mg PO DAILY Qty: 30 5RF nicotine 21-14-7 mg/24 hr patch, TD daily, sequential See Rx Instructions transdermal .COMPLEX Qty: 56 0RF Rx Instructions: apply 1-21 mg NICOTINE PATCH daily for 28 days; follow with 1-14 mg PATCH daily for 14 days, then 1-7mg PATCH daily for 14 days transdermal guaifenesin 1,200 mg tablet extended release 12hr 1,200 mg PO BID PRN (Reason: cough & congestion) Qty: 60 1RF metformin 500 mg tablet 500 mg PO DAILY Qty: 30 5RF Hold Instructions: Not needed at this time. (DME) TENS unit and electrodes Combo Pack See Rx Instructions .Route Qty: 1 0RF Rx Instructions: As directed (DME) TENS Replacement Back Pads 3.74 X 7.48 pad See Rx Instructions miscellaneous .MEDSUPPLY Qty: 2 0RF Rx Instructions: As directed (DME) TENS 502 Device See Rx Instructions .MEDSUPPLY Qty: 1 0RF Rx Instructions: As directed Discharge Orders: Discharge ED (Routine); Ordered 07/10/21 Ordered By: Savage Carrasco Referrals: Andrew Schuler MD [Primary Care Provider] - Discharge Diet: Clear Liquid Discharge Activity: Resume usual activity Patient Instructions: Opioid Safety Coding Level of Care Code ED Bight Maker for Amanda Boone
[2021-07-10 16:46] VITALS: BP 125/87; PULSE 82; RESP 16; O2SAT 98
== END 2021-07-10 16:47 | disposition home or self-care (01) ==
PROVIDERS: Emergency Medicine; Emergency Provider Family Medicine; PCP Family Medicine Adult Medicine
DX: K52.9 Noninfective gastroenteritis and colitis, unspecified (principal); K92.1 Melena; F17.200 Nicotine dependence, unspecified, uncomplicated; I10 Essential (primary) hypertension; E11.9 Type 2 diabetes mellitus without complications
CPT/HCPCS: 80053; 81001; 83690; 85025; 96361; 96374; 99284; J2405; J7030

== ENCOUNTER 2021-07-11 09:18 | Outpatient (CLI) | payer BC, MEDICAID, SELFPAY | END 2021-07-11 09:19 | disposition home or self-care (01) | LOC: LAB 09:33 | PROVIDERS: PCP Family Medicine Adult Medicine; Visit Provider Family Medicine | DX: R19.7 Diarrhea, unspecified (principal) | CPT/HCPCS: 87177; 87209; 87493; 87506 ==

== ENCOUNTER 2021-08-09 08:12 | Outpatient (CLI) | payer BC, MEDICAID, SELFPAY ==
--- NOTE | 2021-08-09 08:27 | FL_ITS ---
WS: [id number] ESOPHAGRAM WITH FLUOROSCOPY HISTORY: DYSPHAGIA COMPARISON: None available. FLUOROSCOPY TIME: 1min [id number] # of spot films: 106 Esophagus and swallowing function: Patient swallowed the barium mixture with no difficulty. No focal mucosal abnormality. There is a very mild esophageal stricture noted at the C7 level. Increased soft tissue along the posterior esophagus at this level along with cervical osteophytes. Near 50% narrowin g of the esophagus. There is no associated mass. Gastroesophageal reflux: None. Hiatal hernia: Small reducible hiatal hernia was noted. FL/FL barium swallow [id number] IMPRESSION: 1. Approximately 50% narrowing of the distal cervical esophagus at the C7 leve l. No associated mass. May be due to cricopharyngeal spasm and the adjacent pos terior osteophyte. No web. 2. Small reducible hiatal hernia was briefly seen during the examination.
== END 2021-08-09 08:13 | disposition home or self-care (01) ==
LOC: RAD 08:14
PROVIDERS: PCP Family Medicine Adult Medicine; Visit Provider Specialist
DX: R13.10 Dysphagia, unspecified (principal); T78.40XA Allergy, unspecified, initial encounter
CPT/HCPCS: 74220

== ENCOUNTER → 2021-08-20 10:05 | Outpatient (BNVA) | payer BC, MEDICAID, SELFPAY | PROVIDERS: PCP Family Medicine Adult Medicine; Visit Provider Anesthesiology Pain Medicine | DX: M51.16 Intervertebral disc disorders with radiculopathy, lumbar region (principal); M47.816 Spondylosis without myelopathy or radiculopathy, lumbar region; M43.17 Spondylolisthesis, lumbosacral region; M79.604 Pain in right leg; M79.605 Pain in left leg; S83.511A Sprain of anterior cruciate ligament of right knee, initial encounter; X58.XXXA Exposure to other specified factors, initial encounter; F17.210 Nicotine dependence, cigarettes, uncomplicated | CPT/HCPCS: 99214 ==

== ENCOUNTER → 2021-08-27 15:17 | Outpatient (BNVA) | payer BC, MEDICAID, SELFPAY | PROVIDERS: PCP Family Medicine Adult Medicine; Visit Provider Internal Medicine Cardiovascular Disease | DX: R00.1 Bradycardia, unspecified (principal) | CPT/HCPCS: 93005 ==

== ENCOUNTER → 2021-09-13 10:10 | Outpatient (BNVA) | payer BC, MEDICAID, SELFPAY | PROVIDERS: PCP Family Medicine Adult Medicine; Visit Provider Anesthesiology Pain Medicine | DX: M43.17 Spondylolisthesis, lumbosacral region (principal); M51.16 Intervertebral disc disorders with radiculopathy, lumbar region; M47.816 Spondylosis without myelopathy or radiculopathy, lumbar region; M79.604 Pain in right leg; S83.511A Sprain of anterior cruciate ligament of right knee, initial encounter; X58.XXXA Exposure to other specified factors, initial encounter; Z79.891 Long term (current) use of opiate analgesic; F17.200 Nicotine dependence, unspecified, uncomplicated | CPT/HCPCS: 99213 ==

== ENCOUNTER → 2021-10-25 08:44 | Outpatient (BNVA) | payer BC, MEDICAID, SELFPAY | PROVIDERS: PCP Family Medicine Adult Medicine; Visit Provider Anesthesiology Pain Medicine | DX: M47.816 Spondylosis without myelopathy or radiculopathy, lumbar region (principal); M43.17 Spondylolisthesis, lumbosacral region; M54.12 Radiculopathy, cervical region; M19.011 Primary osteoarthritis, right shoulder; S83.511A Sprain of anterior cruciate ligament of right knee, initial encounter; X58.XXXA Exposure to other specified factors, initial encounter; M79.604 Pain in right leg; M79.605 Pain in left leg; Z79.891 Long term (current) use of opiate analgesic | CPT/HCPCS: 72050; 73030; 99214 ==

== ENCOUNTER → 2021-11-29 09:47 | Outpatient (BNVA) | payer BC, MEDICAID, SELFPAY | PROVIDERS: PCP Family Medicine Adult Medicine; Visit Provider Anesthesiology Pain Medicine | DX: M43.17 Spondylolisthesis, lumbosacral region (principal); M51.16 Intervertebral disc disorders with radiculopathy, lumbar region; M47.816 Spondylosis without myelopathy or radiculopathy, lumbar region; M79.605 Pain in left leg; F17.200 Nicotine dependence, unspecified, uncomplicated; X58.XXXA Exposure to other specified factors, initial encounter; S83.511A Sprain of anterior cruciate ligament of right knee, initial encounter; M79.604 Pain in right leg | CPT/HCPCS: 99213 ==

== ENCOUNTER 2021-12-22 23:01 | Emergency (ER) | payer BC, MEDICAID, SELFPAY ==
[2021-12-22 23:10] VITALS: BP 163/103; PULSE 95; RESP 18; TEMP 36.5; O2SAT 95; BMI 27.4
--- NOTE | 2021-12-23 00:17 | ED_ITS ---
HPI - General Adult General: Chief complaint: General Medical Stated complaint: throat pain, swelling Time Seen by Provider: 12/23/21 00:14 History of Present Illness: 41-year-old male patient comes in today with complaints of body aches, sore throat, and headache. Patient appears unwell but not toxic. Patient appears in mild to moderate pain. Review of Systems Const: Reports: body aches ENMT: Reports: throat pain PFSH ED PFSH: Medical History Anxiety and depression Clostridioides difficile diarrhea Complete tear of right ACL HTN (hypertension) New onset type 2 diabetes mellitus HgA1C 04-10-2021 6.3 Smoker Quit 08/31/2021 Spondylolisthesis at L5-S1 level Social History Smoking and tobacco status: current every day smoker Second hand smoke exposure: Yes Alcohol intake: never Marital status: Current occupational status: unemployed Physical Exam Const: COMMON NORMALS: alert HENMT: COMMON NORMALS: normocephalic HEAD & SCALP: normocephalic THROAT: posterior oropharynx abnormal cobblestoning and erythema Resp: COMMON NORMALS: normal respiratory effort and clear to auscultation bilaterally AUSCULTATION: clear to auscultation bilaterally Cardio: COMMON NORMALS: regular rate and regular rhythm RATE: regular rate RHYTHM: regular rhythm Extremity: COMMON NORMALS: normal to inspection Neuro: SENSORIUM/ORIENTATION: Yes alert Skin: COMMON NORMALS: turgor normal GENERAL SKIN EXAM: turgor normal Course Vital Signs: Vital signs: Vital Signs Temperature 97.7 F 12/22/21 23:10 Pulse Rate 95 12/22/21 23:10 Respiratory Rate 18 12/22/21 23:10 Blood Pressure 163/103 12/22/21 23:10 Pulse Oximetry 95 12/22/21 23:10 Oxygen Delivery Me thod 12/22/21 23:10 [facility] - General Adult Medical Decision Making 41-year-old male patient comes in today for complaints of sore throat and difficulty swallowing. Posterior pharynx noted erythema without signs of asymmetry or airway compromise. Vital signs were normal except for some mild elevation of blood pressure. Lungs were clear to auscultation without stridor. Differential diagnosis includes but not limited to strep pharyngitis, viral syndrome, retropharyngeal abscess. No signs of severe abscess was noted. Patient was able to manage secretions well. Strep test and COVID test were both negative. Patient was treated with dexamethasone and clindamycin. Patient was also given hydrocodone for his pain. Patient had good results with improvement of speech and ability to swallow. Patient be continued on medications and follow-up with primary care or return to the ER for worsening symptoms. Patient reported understanding agreed to plan. Lab Data Laboratory Results SARS-CoV-2 Ag (Rapid) Negative (Negative) 12/23/21 00:15 Group A Strep Rapid Negative (Negative) 12/23/21 00:15 Discharge Plan Discharge Patient Disposition: Home Clinical Impression: Pharyngitis, acute Qualifiers: Pharyngitis/tonsillitis etiology: unspecified etiology Qualified Code(s): J02.9 - Acute pharyngitis, unspecified Condition: Stable Prescriptions: New prednisone 20 mg tablet 20 mg PO DAILY Qty: 5 0RF clindamycin HCl 300 mg capsule 300 mg PO TID 5 Days Qty: 15 0RF hydrocodone-acetaminophen 5-325 mg tablet 1 tab PO Q6H PRN (Reason: pain) Qty: 7 0RF No Action medical marijuana inhalation (DME) blood-glucose meter Misc See Rx Instructions .Route Qty: 1 0RF Rx Instructions: As directed, check blood sugar, once, daily. (DME) Blood Glucose Test Strip See Rx Instructions .Route Qty: 50 0RF Rx Instructions: As directed, check blood sugar, once, daily. (DME) lancets [Easy Touch Lancets] 30 gauge misc See Rx Instructions .Route Qty: 100 0RF Rx Instructions: As directed, check blood sugar, once, daily. nicotine 21-14-7 mg/24 hr patch, TD daily, sequential See Rx Instructions transdermal .COMPLEX Qty: 56 0RF Rx Instructions: apply 1-21 mg NICOTINE PATCH daily for 28 days; follow with 1-14 mg PATCH daily for 14 days, then 1-7mg PATCH daily for 14 days transdermal hydrocodone-acetaminophen 5-325 mg tablet 1 tab PO Q6H PRN acetaminophen [Tylenol] 325 mg tablet 325 mg PO QID PRN ibuprofen 200 mg capsule 200 mg PO Q6H PRN guaifenesin 1,200 mg tablet extended release 12hr 1,200 mg PO BID PRN (Reason: cough & congestion) Qty: 60 5RF gabapentin 300 mg capsule 300 mg PO TID Qty: 90 0RF levofloxacin 750 mg tablet 750 mg PO DAILY 7 Days Qty: 7 0RF prednisone 20 mg tablet 20 mg PO DAILY 5 Days Qty: 15 0RF methylprednisolone acetate [Depo-Medrol] 40 mg/mL suspension 40 mg intra-articular ONCE Qty: 1 0RF bupivacaine (PF) 0.25 % (2.5 mg/mL) solution 2 ml Infiltration ONCE Qty: 1 0RF tizanidine 4 mg tablet 4 mg PO BID PRN (Reason: muscle spasticity) Qty: 60 0RF lisinopril 20 mg tablet See Rx Instructions .ROUTE .COMPLEX Qty: 30 5RF Dose Instruction: TAKE 1 TABLET BY MOUTH EVERY DAY Rx Instructions: TAKE 1 TABLET BY MOUTH EVERY DAY [id number] [Bromfed DM] 2-30-10 mg/5 mL syrup 10 ml PO Q6H PRN (Reason: sinus symptoms) Qty: 118 0RF Discharge Orders: Discharge ED (Routine); Ordered 12/23/21 Ordered By: Mynor Muñiz Referrals: Andrew Schuler MD [Primary Care Provider] - Discharge Diet: Advance as tolerated Discharge Activity: Increase activity as tolerated Patient Instructions: Pharyngitis (ED) Activity Restrictions/Additional Instructions: Drink plenty of fluids. Take medication as directed. Follow-up with primary care in 3 days for recheck. Return to ER for new concerns or worsening symptoms such as difficulty holding fluids down, increased shortness of breath, or chest pain. Stand Alone Forms: Work/School Release Coding Level of Care Code ED International Trade Analyst for Chg Fwd Exam Detailed
[2021-12-23] MEDS: dexamethasone 10 mg/mL INJ IM (00:31)
[2021-12-23] MEDS: ketorolac 30 mg/mL INJ IM (00:33)
[2021-12-23] MEDS: HYDROcodone-APAP 7.5-325 mg/15 mL UDC PO (00:44)
[2021-12-23 00:49] LABS: Rapid Strep A Test Negative (Negative); SARS Covid-2 Antigen Negative (Negative)
[2021-12-23] MEDS: clindamycin 150 mg Capsule 300 MG PO (01:10)
== END 2021-12-23 01:12 | disposition home or self-care (01) ==
PROVIDERS: Emergency Provider Nurse Practitioner Family; PCP Family Medicine Adult Medicine
DX: J02.9 Acute pharyngitis, unspecified (principal)
CPT/HCPCS: 87081; 87426; 87880; 96372; 99284; J1100; J1885

== ENCOUNTER 2022-04-09 12:41 | Outpatient (CLI) | payer BC, MEDICAID, SELFPAY ==
--- NOTE | 2022-04-09 12:56 | MR_ITS ---
WS: [id number] MRI HEAD WITH CONTRAST TECHNIQUE: Sagittal T1, T2 axial, T2 axial FLAIR, axial susceptibility weighted imaging, axial diffus ion weighted images, and coronal T2 images were obtained. Pre and post-T1 axial and post T1 coronal i mages. ADC and FSPGR images. CLINICAL INFORMATION: VERTIGO COMPARISON: CT head October 06, 2020 FINDINGS: Some images degraded by motion. No evidence of restricted diffusion to suggest acute ischemia. Ventricular system and basal cisterns are patent. Normal posterior fossa. Normal vascular flow voids at the skull base. No extra-axial flui d collections. No evidence of mass or mass effect. Paranasal sinuses and mastoid air cells are well a erated. Normal posterior nasopharynx. Normal parapharyngeal fat. No hemosiderin on susceptibly weight ed images. Temporal lobes and hippocampal formations are normal in appearance. Normal optic chiasm an d pituitary infundibulum. No abnormal gadolinium enhancement. Normal dural venous sinuses. MR/MR head wo/w con [id number] IMPRESSION: 1. No evidence of restricted diffusion to suggest acute ischemia. 2. No suspicious intracranial signal abnormalities. 3. No hemosiderin on the susceptibly weighted images. 4. No abnormal gadolinium enhancement. 5. Paranasal sinuses and mastoid air cells well aerated. 6. No other suspicious findings.
[2022-04-09] MEDS: gadobenate dimeglumine 20 mL vial IV (13:23)
== END 2022-04-09 12:42 | disposition home or self-care (01) ==
LOC: RAD 12:41
PROVIDERS: PCP Physician Assistant; Visit Provider Physician Assistant
DX: R42 Dizziness and giddiness (principal)
CPT/HCPCS: 70553; A9577

== ENCOUNTER 2022-05-20 19:31 | Emergency (ER) | payer BC, MEDICAID, SELFPAY ==
[2022-05-20 19:37] VITALS: BP 162/98; PULSE 101; RESP 18; TEMP 36.4; O2SAT 97; BMI 29.9
[2022-05-20 20:25] LABS: Basophils # 0.1 10^3/uL (0.0-0.1); Basophils % 0.4 %; Eosinophils # 0.3 10^3/uL (0.0-0.8); Eosinophils % 1.8 %; Hematocrit 46.3 % (42.0-52.0); Hemoglobin 15.9 g/dL (11.7-16.6); Lymphocytes % 31.8 %; Mean Corpuscular HGB Conc 34.3 g/dL (30.0-36.0); Mean Corpuscular Volume 90.3 fl (80-94); Mean Platelet Volume 10.8 fL (7.4-10.4); Monocytes # 1.3 10^3/uL (0.2-0.9); Monocytes % 8.3 %; Neutrophils # 8.93 10^3/uL (1.8-7.7); Neutrophils % 57.3 %; Nucleated Red Blood Cells % 0 %; Platelet Count 342 10^3/cmm (130-400); Red Blood Count 5.13 10^6/uL (4.1-5.3); Red Cell Distribution Width 13.1 % (12.1-15.1); White Blood Count 15.6 10^3/uL (4.0-10.0)
[2022-05-20 20:38] LABS: INR 0.99 (0.8-1.2)
[2022-05-20 20:44] LABS: Alanine Aminotransferase 21 U/L (0-41); Albumin Level 4.6 g/dL (3.5-5.2); Alkaline Phosphatase 81 U/L (40-130); Anion Gap 16.6 (5-19); Aspartate Amino Transferase 21 U/L (0-40); Blood Urea Nitrogen 17 mg/dL (6-20); Calcium 9.4 mg/dL (8.5-10.5); Carbon Dioxide 27 mmol/L (22-29); Chloride 96 mmol/L (98-107); Globulin 3.2 g/dL (1.3-4.6); Glomerular Filtration Rate 105.5 mL/min (90-130); Glucose 104 mg/dL (65-115); Osmolality Calculated 282 mOsm/kg (285-295); Potassium 4.6 mmol/L (3.5-5.1); Sodium 135 mmol/L (136-145); Total Bilirubin 0.5 mg/dL (0.15-1.2); Total Protein 7.8 g/dL (6.6-8.7)
--- NOTE | 2022-05-20 20:47 | ED_ITS ---
HPI - GI Bleed General: Chief complaint: GI Bleed Stated complaint: Rectal Bleeding\Fatique\Dry heaving Time Seen by Provider: 05/20/22 20:38 History of Present Illness: 42-year-old male patient comes in today for complaints of abdominal pain and blood in stool. Patient appears nontoxic. Patient appears in no acute distress. Patient has a history of hemorrhoids, GERD, hypertension, chronic marijuana use, facet arthritis, lumbar disc disease. Associated symptoms: Reports abdominal pain and nausea; Denies fever(s) or rash Review of Systems Const: Denies: fever(s) Card: Denies: chest pain Resp: Denies: dyspnea GI: Reports: abdominal pain, nausea and hematochezia Skin/Breast: Denies: rash PFSH ED PFSH: Medical History (Updated 05/20/22 @ 22:09 by ZEHRA Yun) Anxiety and depression Chronic GERD Dizziness Hemorrhoids without complication HTN (hypertension) Marijuana dependence New onset type 2 diabetes mellitus HgA1C 04-10-2021 6.3 Smoker Quit 08/31/2021 Spondylolisthesis at L5-S1 level Stool incontinence Social History Smoking and tobacco status: current every day smoker cigarettes Second hand smoke exposure: Yes Alcohol intake: current Alcohol intake frequency: few times a week Desire information about alcohol rehabilitation?: No Marital status: Current occupational status: unemployed Physical Exam Const: COMMON NORMALS: alert HENMT: COMMON NORMALS: normocephalic HEAD & SCALP: normocephalic MOUTH: Normal oral and palatal mucosa present Neck/C-Spine: COMMON NORMALS: full ROM Resp: COMMON NORMALS: normal respiratory effort and clear to auscultation bilaterally AUSCULTATION: clear to auscultation bilaterally Cardio: COMMON NORMALS: regular rate and regular rhythm RATE: regular rate RHYTHM: regular rhythm GI: COMMON NORMALS: Soft to palpation AUSCULTATION: Yes normoactive bowel sounds PALPATION: Yes Soft to palpation, Yes Tenderness to palpation present (GI) (General), No Guarding due to palpation present (GI) and No Rigid due to palpation RECTAL EXAM: Yes visual inspection normal, Yes normal sphincter tone and Yes hemorrhoids Extremity: COMMON NORMALS: normal to inspection Neuro: SENSORIUM/ORIENTATION: Yes alert Skin: COMMON NORMALS: turgor normal GENERAL SKIN EXAM: turgor normal Course Vital Signs: Vital signs: Vital Signs Temperature 97.6 F 05/20/22 19:37 Pulse Rate 101 H 05/20/22 19:37 Respiratory Rate 17 05/20/22 21:28 Blood Pressure 162/98 05/20/22 19:37 Pulse Oximetry 97 05/20/22 19:37 Oxygen Delivery Me thod 05/20/22 19:37 MDM - GI Bleed Medical Decision Making 42-year-old male patient comes in today for complaints of abdominal discomfort, blood in stool, and some nausea and vomiting. Patient symptoms seem to be chronic in nature. Patient does have recurrent episodes. Patient is set up to have a colonoscopy done on the or around that time. Patient came in today due to a blood clot when he had a stool. Patient appears nontoxic. Abdomen soft with some generalized tenderness. No guarding. Rectal exam was unremarkable except for hemorrhoids but no strangulated hemorrhoid is noted. Differential diagnosis includes wound to GI bleed, colitis, hyperemesis syndrome, or bowel obstruction. CBC and CMP noted some mild leukocytosis with 15,000 white blood cell count, hemoglobin hematocrit were normal. CMP noted mild decrease in sodium at 135, creatinine was 0.8. Patient was given 1 L of IV fluids for concerns of mild dehydration. No signs of gross rectal bleeding. CT of the abdomen pelvis was unremarkable. Recommend patient continue with plan for colonoscopy. We will request for case management to see if they can move patient up for his appointment for colonoscopy. Patient reported understanding agreed to plan. Lab Data 05/20/22 20:00 05/20/22 20:15 Radiology Impressions Abdomen/Pelvis CT 05/20/22 21:11 IMPRESSION: No acute findings.Non acute findings as described above. Laboratory Results WBC 15.6 10^3/uL (4.0-10.0) H 05/20/22 20:00 RBC 5.13 10^6/uL (4.1-5.3) 05/20/22 20:00 Hgb 15.9 g/dL (11.7-16.6) 05/20/22 20:00 Hct 46.3 % (42.0-52.0) 05/20/22 20:00 MCV 90.3 fl (80-94) 05/20/22 20:00 MCH 31.0 pg (28.0-34.0) 05/20/22 20:00 MCHC 34.3 g/dL (30.0-36.0) 05/20/22 20:00 RDW 13.1 % (12.1-15.1) 05/20/22 20:00 Plt Count 342 10^3/cmm (130-400) 05/20/22 20:00 MPV 10.8 fL (7.4-10.4) H 05/20/22 20:00 Neut % (Auto) 57.3 % 05/20/22 20:00 Lymph % (Auto) 31.8 % 05/20/22 20:00 [place] % (Auto) 8.3 % 05/20/22 20:00 Eos % (Auto) 1.8 % 05/20/22 20:00 Baso % (Auto) 0.4 % 05/20/22 20:00 Neut # (Auto) 8.93 10^3/uL (1.8-7.7) H 05/20/22 20:00 Lymph # (Auto) 5.0 10^3/uL (0.8-4.8) H 05/20/22 20:00 [place] # (Auto) 1.3 10^3/uL (0.2-0.9) H 05/20/22 20:00 Eos # (Auto) 0.3 10^3/uL (0.0-0.8) 05/20/22 20:00 Baso # (Auto) 0.1 10^3/uL (0.0-0.1) 05/20/22 20:00 Nucleated RBC % (auto) 0 % 05/20/22 20:00 Nucleated RBCs # 0.0 /100WBC 05/20/22 20:00 PT 13.40 SECONDS (12.1-14.9) 05/20/22 20:15 INR 0.99 (0.8-1.2) 05/20/22 20:15 Sodium 135 mmol/L (136-145) L 05/20/22 20:15 Potassium 4.6 mmol/L (3.5-5.1) 05/20/22 20:15 Chloride 96 mmol/L (98-107) L 05/20/22 20:15 Carbon Dioxide 27 mmol/L (22-29) 05/20/22 20:15 Anion Gap 16.6 (5-19) 05/20/22 20:15 BUN 17 mg/dL (6-20) 05/20/22 20:15 Creatinine 0.8 mg/dL (0.7-1.2) 05/20/22 20:15 GFR Calculation 105.5 mL/min (90-130) 05/20/22 20:15 Glucose 104 mg/dL (65-115) 05/20/22 20:15 Calculated Osmolality 282 mOsm/kg (285-295) L 05/20/22 20:15 Calcium 9.4 mg/dL (8.5-10.5) 05/20/22 20:15 Total Bilirubin 0.5 mg/dL (0.15-1.2) 05/20/22 20:15 AST 21 U/L (0-40) 05/20/22 20:15 ALT 21 U/L (0-41) 05/20/22 20:15 Alkaline Phosphatase 81 U/L (40-130) 05/20/22 20:15 Total Protein 7.8 g/dL (6.6-8.7) 05/20/22 20:15 Albumin 4.6 g/dL (3.5-5.2) 05/20/22 20:15 Globulin 3.2 g/dL (1.3-4.6) 05/20/22 20:15 Discharge Plan Discharge Patient Disposition: Home Clinical Impression: Blood in stool Hemorrhoids Qualifiers: Hemorrhoid type: unspecified Qualified Code(s): K64.9 - Unspecified hemorrhoids Condition: Stable Prescriptions: New Anusol-HC 25 mg suppository 25 mg RI DAILY 14 Days Qty: 12 0RF No Action medical marijuana inhalation ibuprofen 200 mg capsule 200 mg PO Q6H PRN citalopram [Celexa] 20 mg tablet 20 mg PO DAILY Qty: 30 1RF hydroxyzine HCl 25 mg tablet 25 mg PO Q6H PRN (Reason: dizziness) Qty: 60 1RF Rx Instructions: 1/2 to 1 tab every 6 hr prn aspirin 81 mg tablet,delayed release (DR/EC) 81 mg PO DAILY calcium polycarbophil [FiberCon] 625 mg tablet 625 mg PO BID Qty: 60 5RF pantoprazole 40 mg tablet,delayed release (DR/EC) 40 mg PO DAILY PRN (Reason: acid reflux) Qty: 30 2RF lisinopril 20 mg tablet 20 mg PO DAILY Qty: 90 1RF Discharge Orders: Discharge ED (Routine); Ordered 05/20/22 Ordered By: Mynor Muñiz Referrals: Stefani Schmitz PA [Primary Care Provider] - Discharge Diet: Usual diet Discharge Activity: Increase activity as tolerated Patient Instructions: Melena (ED) Activity Restrictions/Additional Instructions: Drink plenty of fluids. Use a stool softener such as docusate sodium, or MiraLAX to keep stools soft and easy to pass. Drink plenty of water with medications. Continue with routine care. Follow-up with primary care for further instructions. Return to ER for worsening symptoms such as high fever greater than 100.4, no urine output within 8 to 12 hours, chest pain or shortness of breath, or new concerns. Coding Level of Care Code ED Embroidery Operator for Amanda Boone
[2022-05-20] MEDS: haloperidol inj 5 mg/mL INJ 1 mL 2 MG IVP (20:56)
[2022-05-20] MEDS: sodium chloride 0.9% 1,000 ML 999 ML IV (20:58)
--- NOTE | 2022-05-20 21:11 | CTR_ITS ---
PROCEDURE INFORMATION: Exam: CT Abdomen And Pelvis With Contrast Exam date and time: 05/20/2022 9:19 PM Age: 42 years old Clinical indication: Abdominal pain; Patient HX: C/O periumbilical pain with rectal bleeding. History of gerd. ; Additional info: Abd pain, blood in stool TECHNIQUE: Imaging protocol: Computed tomography of the abdomen and pelvis with contrast. Radiation optimization: All CT scans at this facility use at least one of these dose optimization techniques: automated exposure control; mA and/or kV adjustment per patient size (includes targeted exams where dose is matched to clinical indication); or iterative reconstruction. Contrast material: OMNI 350; Contrast volume: 100 ml; Contrast route: INTRAVENOUS (IV); Other protocol: This patient has received 0 known CTs and 0 known cardiac nuclear medicine studies in the 12 months prior to the current study. COMPARISON: CT angio chest w abd pel w con 10/06/2020 2:37 PM RADIATION DOSE METRICS: Total DLP (mGy-cm): 564.76 FINDINGS: Liver: Normal. No mass. Gallbladder and bile ducts: Normal. No calcified stones. No ductal dilation. Pancreas: Normal. No ductal dilation. Spleen: Normal. No splenomegaly. Adrenal glands: Normal. No mass. Kidneys and ureters: Normal. No hydronephrosis. Stomach and bowel: Unremarkable. No obstruction. No mucosal thickening. Appendix: A normal appendix is identified. Intraperitoneal space: Unremarkable. No free air. No significant fluid collection. Vasculature: Multi-vessel atherosclerotic disease. Lymph nodes: Unremarkable. No enlarged lymph nodes. Urinary bladder: Unremarkable as visualized. Reproductive: Unremarkable as visualized. Bones/joints: Chronic defects are present through the bilateral L5 pars interarticularis. There is resultant grade 1 spondylolisthesis at L5-S1 with uncovering of the disc. There is moderate to severe narrowing of the right neural foramen and [id number] narrowing of the left neural foramen at the L5-S1 level. Soft tissues: Unremarkable. CT/CT abdomen pelvis w con* [id number] IMPRESSION: No acute findings.Non acute findings as described above.
[2022-05-20] MEDS: iohexol 350 mg/mL 500 mL Btl (per mL) IV (21:27)
[2022-05-20 21:28] VITALS: RESP 17
[2022-05-20] MEDS: fentaNYL 50 mcg/mL INJ 2mL 25 MCG IVP (21:28)
[2022-05-20 22:26] VITALS: BP 108/70
[2022-05-20 22:28] VITALS: BP 108/70; PULSE 85; O2SAT 98
--- NOTE | 2022-05-21 10:07 | DCPLANNER ---
Addendum entered by Erica Lindquist 06/06/22 08:00: Patient had a follow up appointment scheduled with general surgery - patient did attend appointment. Addendum entered by Erica Lindquist 05/22/22 11:14: Patient has a follow up appointment scheduled for Tuesday, May 24, 2022 at 3;[address] Hodges at general surgery. Clinic will call patient with appointment information. Original Note: it account manager had message to schedule a follow up appointment for patient with general surgery. it account manager sent patients information to the front office staff at general surgery. Patients information will be printed and reviewed. Clinic will call patient with appointment information.
== END 2022-05-20 22:30 | disposition home or self-care (01) ==
PROVIDERS: Emergency Medicine; Emergency Provider Nurse Practitioner Family; PCP Physician Assistant
DX: K64.9 Unspecified hemorrhoids (principal); K92.1 Melena; Z79.82 Long term (current) use of aspirin; I10 Essential (primary) hypertension; E11.9 Type 2 diabetes mellitus without complications; F17.210 Nicotine dependence, cigarettes, uncomplicated
CPT/HCPCS: 36415; 74177; 80053; 85025; 85610; 96361; 96374; 96375; 99285; J1630; J3010; J7030; Q9967

== ENCOUNTER 2022-05-31 20:17 | Emergency (ER) | payer BC, MEDICAID, SELFPAY ==
[2022-05-31 20:30] VITALS: BP 126/90; PULSE 106; RESP 14; TEMP 36.8; O2SAT 98
[2022-05-31 21:33] VITALS: BP 128/86; PULSE 102; RESP 16; O2SAT 95
[2022-05-31 21:42] LABS: Basophils # 0.1 10^3/uL (0.0-0.1); Basophils % 0.5 %; Eosinophils # 0.3 10^3/uL (0.0-0.8); Eosinophils % 1.5 %; Hemoglobin 15.7 g/dL (11.7-16.6); Lymphocytes % 23.6 %; Mean Corpuscular HGB Conc 34.1 g/dL (30.0-36.0); Mean Corpuscular Hemoglobin 30.7 pg (28.0-34.0); Mean Corpuscular Volume 89.8 fl (80-94); Mean Platelet Volume 10.4 fL (7.4-10.4); Neutrophils # 11.45 10^3/uL (1.8-7.7); Nucleated Red Blood Cells % 0 %; Platelet Count 420 10^3/cmm (130-400); Red Blood Count 5.12 10^6/uL (4.1-5.3); Red Cell Distribution Width 12.8 % (12.1-15.1); White Blood Count 16.8 10^3/uL (4.0-10.0)
--- NOTE | 2022-05-31 21:56 | W.ED.NAVMDI ---
HPI - Nausea/Vomiting/Diarrhea General: Chief complaint: Abdominal Pain Stated complaint: Vomiting and Diar Time Seen by Provider: 05/31/22 21:22 History of Present Illness: Patient is a 42-year-old male comes to the ED with nausea vomiting diarrhea. Symptoms started approximately 5 hours ago. He describes having a sudden onset of abdominal cramping and diarrhea. He also said nausea and multiple episodes of emesis as well. Patient says his symptoms started approximately an hour after he ate and is suspicious for possible food poisoning. Denies any fevers or sick contacts. Associated nausea: Yes Associated symtoms: Reports nausea; Denies change in vision, chest pain, dysuria, fatigue, headache(s) or palpitations Review of Systems Const: Denies: fever(s), chills or fatigue Eyes: Denies: change in vision or eye discomfort ENMT: Denies: throat pain, odynophagia, nasal discharge or nasal congestion Card: Denies: chest pain, palpitations, edema, swelling of feet/ankles, dyspnea on exertion or orthopnea Resp: Denies: dyspnea, productive cough or non-productive cough GI: Reports: nausea, vomiting, diarrhea and GI cramping (Generalized abdominal cramp); Denies: abdominal pain, constipation or hematochezia : Denies: flank pain, difficulty urinating, dysuria or hematuria Musc: Denies: neck pain, back pain or extremity swelling Skin/Breast: Denies: rash or new lesions Neuro: Denies: headache(s), numbness in extremities or weakness in extremities PFSH ED PFSH: Medical History Anxiety and depression Chronic GERD Dizziness Hemorrhoids without complication HTN (hypertension) Hx of fracture of nose had it set Marijuana dependence New onset type 2 diabetes mellitus HgA1C 04-10-2021 6.3 Smoker Quit 08/31/2021 Spondylolisthesis at L5-S1 level Stool incontinence Surgical History History of esophagogastroduodenoscopy (EGD) Social History Smoking and tobacco status: current every day smoker cigarettes Second hand smoke exposure: Yes Alcohol intake: current Alcohol intake frequency: few times a week Desire information about alcohol rehabilitation?: No Marital status: Current occupational status: unemployed Physical Exam Const: COMMON NORMALS: patient oriented x3 and alert GENERAL APPEARANCE: cooperative and comfortable HENMT: COMMON NORMALS: normocephalic HEAD & SCALP: normocephalic MOUTH: Normal oral and palatal mucosa present THROAT: posterior oropharynx normal and uvula midline Neck/C-Spine: COMMON NORMALS: supple GENERAL: Yes normal visual inspection Resp: COMMON NORMALS: normal respiratory effort, No retractions, No use of accessory muscles and clear to auscultation bilaterally AUSCULTATION: clear to auscultation bilaterally Cardio: COMMON NORMALS: regular rate, regular rhythm, S1 normal heart sound present, S2 normal heart sound present, No gallops present (Cardio), No clicks present (Cardio), No murmurs present (Cardio) and Peripheral pulses 2+ throughout RATE: regular rate RHYTHM: regular rhythm HEART SOUNDS: S1 normal heart sound present and S2 normal heart sound present PERIPHERAL PULSES: Peripheral pulses 2+ throughout GI: COMMON NORMALS: Normal to inspection, nondistended, normoactive bowel sounds present, Soft to palpation, non-tender and no masses PALPATION: Yes Soft to palpation OTHER: No acute abdomen upon exam : COMMON NORMALS: Yes no CVA tenderness BLADDER/KIDNEY EXAM: Yes no CVA tenderness Back/Pelvis: COMMON NORMALS: no CVA tenderness Extremity: COMMON NORMALS: normal to inspection Neuro: COMMON NORMALS: patient oriented x3 SENSORIUM/ORIENTATION: Yes alert GAIT: Yes Normal gait present Skin: GENERAL SKIN EXAM: dry skin Course Vital Signs: Vital signs: Vital Signs Temperature 98.3 F 05/31/22 20:30 Pulse Rate 92 06/01/22 01:37 Respiratory Rate 16 06/01/22 01:37 Blood Pressure 104/68 06/01/22 01:37 Pulse Oximetry 94 06/01/22 01:37 Oxygen Delivery Me thod 06/01/22 00:30 MDM - Nausea/Vomiting/Diarrhea Medical Decision Making Patient is a 42-year-old male comes to the ED with nausea, vomiting and diarrhea. Symptoms started approximately 5 hours ago. He describes having a sudden onset of abdominal cramping and diarrhea. He also said nausea and multiple episodes of emesis as well. Patient says his symptoms started approximately an hour after he ate and is suspicious for possible food poisoning. Denies any fevers or sick contacts. Vitals are stable. Patient appears nontoxic. He is no acute abdomen upon abdominal exam. Rest of exam is benign. White blood cell count of 16.8 slightly up from 15.8 on May 20. Rest of labs are unremarkable. Patient was given 1/2 L of IV fluids and nausea meds. His symptoms improved and he was able to tolerate p.o. fluids here in the ED. Patient's symptoms likely due to food poisoning and he was stable for discharge home. He was sent home with a prescription for Reglan and told to follow-up with PCP within the next week for reevaluation. Return to ED precautions given. Patient understood and agreed with plan. Lab Data I reviewed the patient's lab results. 05/31/22 21:35 05/31/22 21:35 Laboratory Results WBC 16.8 10^3/uL (4.0-10.0) H 05/31/22 21:35 RBC 5.12 10^6/uL (4.1-5.3) 05/31/22 21:35 Hgb 15.7 g/dL (11.7-16.6) 05/31/22 21:35 Hct 46.0 % (42.0-52.0) 05/31/22 21:35 MCV 89.8 fl (80-94) 05/31/22 21:35 MCH 30.7 pg (28.0-34.0) 05/31/22 21:35 MCHC 34.1 g/dL (30.0-36.0) 05/31/22 21:35 RDW 12.8 % (12.1-15.1) 05/31/22 21:35 Plt Count 420 10^3/cmm (130-400) H 05/31/22 21:35 MPV 10.4 fL (7.4-10.4) 05/31/22 21:35 Neut % (Auto) 68.0 % 05/31/22 21:35 Lymph % (Auto) 23.6 % 05/31/22 21:35 Kinney % (Auto) 6.0 % 05/31/22 21:35 Eos % (Auto) 1.5 % 05/31/22 21:35 Baso % (Auto) 0.5 % 05/31/22 21:35 Neut # (Auto) 11.45 10^3/uL (1.8-7.7) H 05/31/22 21:35 Lymph # (Auto) 4.0 10^3/uL (0.8-4.8) 05/31/22 21:35 Kinney # (Auto) 1.0 10^3/uL (0.2-0.9) H 05/31/22 21:35 Eos # (Auto) 0.3 10^3/uL (0.0-0.8) 05/31/22 21:35 Baso # (Auto) 0.1 10^3/uL (0.0-0.1) 05/31/22 21:35 Nucleated RBC % (auto) 0 % 05/31/22 21:35 Nucleated RBCs # 0.0 /100WBC 05/31/22 21:35 Sodium 135 mmol/L (136-145) L 05/31/22 21:35 Potassium 4.5 mmol/L (3.5-5.1) 05/31/22 21:35 Chloride 96 mmol/L (98-107) L 05/31/22 21:35 Carbon Dioxide 26 mmol/L (22-29) 05/31/22 21:35 Anion Gap 17.5 (5-19) 05/31/22 21:35 BUN 14 mg/dL (6-20) 05/31/22 21:35 Creatinine 0.8 mg/dL (0.7-1.2) 05/31/22 21:35 GFR Calculation 105.5 mL/min (90-130) 05/31/22 21:35 Glucose 112 mg/dL (65-115) 05/31/22 21:35 Calculated Osmolality 281 mOsm/kg (285-295) L 05/31/22 21:35 Calcium 10.1 mg/dL (8.5-10.5) 05/31/22 21:35 Total Bilirubin 0.2 mg/dL (0.15-1.2) 05/31/22 21:35 AST 26 U/L (0-40) 05/31/22 21:35 ALT 23 U/L (0-41) 05/31/22 21:35 Alkaline Phosphatase 86 U/L (40-130) 05/31/22 21:35 Total Protein 8.3 g/dL (6.6-8.7) 05/31/22 21:35 Albumin 5.0 g/dL (3.5-5.2) 05/31/22 21:35 Globulin 3.3 g/dL (1.3-4.6) 05/31/22 21:35 Lipase 45 U/L (13-60) 05/31/22 21:35 Urine Color Yellow (Yellow) 05/31/22 22:29 Urine Appearance Clear (CLEAR) 05/31/22 22:29 Urine pH 6 (5-7) 05/31/22 22:29 Ur Specific [place] 1.020 (1.005-1.030) 05/31/22 22:29 Urine Protein Trace (Negative) 05/31/22 22: Urine Glucose (UA) Norm (Normal) 05/31/22 22: Urine Ketones Negative (Negative) 05/31/22 22: Urine Blood Neg (Negative) 05/31/22 22:29 Urine Nitrate Negative (Negative) 05/31/22 22: Urine Bilirubin Neg (Negative) 05/31/22 22:29 Urine Urobilinogen Neg mg/dL (Negative) 05/31/22 22:29 Ur Leukocyte Esterase Trace (Negative) H 05/31/22 22:29 Urine RBC 0-4 /hpf (0-2) H 05/31/22 22:29 Urine WBC 0-4 /hpf (0-5) H 05/31/22 22:29 Ur Squamous Epith Cells 0-4 /hpf (0-5) H 05/31/22 22:29 Amorphous Sediment Not Reportable 05/31/22 22:29 Urine Bacteria Trace /hpf (NONE) 05/31/22 22:29 Urine Mucus 1+ /hpf 05/31/22 22:29 Discharge Plan Discharge Patient Disposition: Home Clinical Impression: Food poisoning Condition: Stable Prescriptions: New Reglan 10 mg tablet 10 mg PO Q6H PRN (Reason: nausea and vomiting) Qty: 15 0RF No Action medical marijuana inhalation ibuprofen 200 mg capsule 200 mg PO Q6H PRN citalopram [Celexa] 20 mg tablet 20 mg PO DAILY Qty: 30 1RF hydroxyzine HCl 25 mg tablet 25 mg PO Q6H PRN (Reason: dizziness) Qty: 60 1RF Rx Instructions: 1/2 to 1 tab every 6 hr prn aspirin 81 mg tablet,delayed release (/EC) 81 mg PO DAILY calcium polycarbophil [FiberCon] 625 mg tablet 625 mg PO BID Qty: 60 5RF pantoprazole [Protonix] 40 mg tablet,delayed release (DR/EC) 40 mg PO BID 42 Days Qty: 84 1RF pantoprazole 40 mg tablet,delayed release (DR/EC) 40 mg PO DAILY PRN (Reason: acid reflux) Qty: 30 2RF lisinopril 20 mg tablet 20 mg PO DAILY Qty: 90 1RF Anusol-HC 25 mg suppository 25 mg NH DAILY 14 Days Qty: 12 0RF Discharge Orders: Discharge ED (Routine); Ordered 06/01/22 Ordered By: Jean Paul Azevedo Referrals: Stefani Schmitz PA [Primary Care Provider] - Discharge Diet: Advance as tolerated and Clear Liquid Discharge Activity: Increase activity as tolerated Patient Instructions: Food Poisoning (ED) Activity Restrictions/Additional Instructions: Follow-up with medical provider as directed in the next 5 to 7 days for reevaluation. Drink plenty of fluids and stay hydrated. Take medications as prescribed. Return to the ER or your medical provider if condition worsens. Please read and understand discharge instructions. Thank you for choosing [facility] for your healthcare needs today. Please realize this is an emergency room and that we are providing you with a medical screening exam and this may not be complete and all inclusive of all the testing and or work up that you may need to determine your ailment or severity of your illness. It is very important that you follow up as instructed or that you return to the Emergency Department should you have concerns or if your condition changes or worsens in any way. Coding Level of Care Code ED Circuit Rider for Amanda Boone
[2022-05-31] MEDS: sodium chloride 0.9% 1,000 ML 999 ML IV (22:03)
[2022-05-31] MEDS: ondansetron 2 mg/ML SDV 2 mL 4 MG IVP (22:04)
[2022-05-31 22:07] LABS: Alanine Aminotransferase 23 U/L (0-41); Alkaline Phosphatase 86 U/L (40-130); Anion Gap 17.5 (5-19); Aspartate Amino Transferase 26 U/L (0-40); Blood Urea Nitrogen 14 mg/dL (6-20); Calcium 10.1 mg/dL (8.5-10.5); Carbon Dioxide 26 mmol/L (22-29); Chloride 96 mmol/L (98-107); Globulin 3.3 g/dL (1.3-4.6); Glomerular Filtration Rate 105.5 mL/min (90-130); Glucose 112 mg/dL (65-115); Lipase 45 U/L (13-60); Osmolality Calculated 281 mOsm/kg (285-295); Potassium 4.5 mmol/L (3.5-5.1); Sodium 135 mmol/L (136-145); Total Bilirubin 0.2 mg/dL (0.15-1.2); Total Protein 8.3 g/dL (6.6-8.7)
[2022-05-31 22:15] VITALS: BP 137/88; O2SAT 92
[2022-05-31 23:01] VITALS: BP 116/71; PULSE 96; RESP 14; O2SAT 94
[2022-05-31 23:02] LABS: Urine Appearance Clear (CLEAR); Urine Color Yellow (Yellow); pH Urine 6 (5-7)
[2022-05-31 23:03] LABS: Add Urine Microscopic? YES; Bilirubin Urine Neg (Negative); Blood Urine Neg (Negative); Glucose Urine UA Norm (Normal); Ketones Urine Negative (Negative); Leukocyte Esterase Urine Trace (Negative); Nitrate Urine Negative (Negative); Protein Urine Trace (Negative); Urobilinogen Urine Neg (Negative)
[2022-05-31 23:04] LABS: Add Urine Culture? No; Bacteria Urine TRACE /hpf; Mucus Urine 1+ /hpf; RBC Urine 0-4 /hpf (0-2); Squamous Epithelial Cell Urine 0-4 /hpf (0-5); WBC Urine 0-4 /hpf (0-5)
[2022-05-31] MEDS: metoclopramide 5 mg/mL SDV 2 mL 10 MG IVP (23:45)
[2022-05-31] MEDS: sodium chloride 0.9% 500 ML 999 ML IV (23:45)
[2022-06-01 00:30] VITALS: BP 104/76; PULSE 96; O2SAT 92
[2022-06-01 01:37] VITALS: BP 104/68; PULSE 92; RESP 16; O2SAT 94
== END 2022-06-01 01:24 | disposition home or self-care (01) ==
PROVIDERS: Emergency Provider Physician Assistant; PCP Physician Assistant
DX: A05.9 Bacterial foodborne intoxication, unspecified (principal); Z79.82 Long term (current) use of aspirin; F17.210 Nicotine dependence, cigarettes, uncomplicated; I10 Essential (primary) hypertension; E11.9 Type 2 diabetes mellitus without complications
CPT/HCPCS: 80053; 81001; 83690; 85025; 96361; 96374; 99284; J2405; J2765; J7030; J7040

== ENCOUNTER 2022-06-05 05:22 | Day surgery (SDC) | payer BC, MEDICAID, SELFPAY ==
[2022-06-03 09:08] VITALS: BMI 29.1
[2022-06-05 06:12] VITALS: BP 149/100; PULSE 82; RESP 18; TEMP 36.1; O2SAT 98
--- NOTE | 2022-06-05 06:23 | ANES.PREANE2 ---
Pre-Anesthetic Assessment Height/Weight: Height 1.65 m Weight 79.379 kg Temp Pulse Resp BP Pulse Ox O2 Del Method 97 F L 82 18 149/100 98 06/05/22 06:12 06/05/22 06:12 06/05/22 06:12 06/05/22 06:12 06/05/22 06:12 06/05/22 06:12 Preop Diagnosis: Abdominal pain Operation Date: 06/05/22 07:00 Proposed Procedures p 06192 EGD 76219 colon R10.13, K92.1,, K21.9(Not Applicable) - Pedrito Hodges DO s Colonoscopy(Not Applicable) - Pedrito Hodges DO Familial anesthetic complications: None Was Beta Jakub taken within 24 hours: N/A Was Clonidine taken within 24 hours: N/A Last intake: Intake Last Liquid Date 06/04/22 Last Liquid Time 22:30 Last Solid Date 06/03/22 Last Solid Time 22:00 Social Alcohol (A shot every 3-4 days) and Tobacco 1 pack(s) per day 27 pack years Medical marijuana daily Exam alert, oriented x 3, clear to auscultation bilaterally and regular rate & rhythm Airway Submandibular: within normal limits Cervical ROM: within normal limits Mallampati: Class III Dentition: false (Removed) History/ROS No significant history except as noted and No significant complaints Pulmonary Cough, Exertional Dyspnea and Sleep Apnea CV/HEM Hypertension None reported Hepatic None reported GI Gastroesophageal Reflux Disease Recent food poisoning Metabolic Diabetes Mellitus and None reported Musc/skel Lower Back Pain, Osteoarthritis/DJD and Weakness (In legs when he climbs stairs) Neuropsych Anxiety, Depression and Neuropathy Anesthetic Plan ASA status: 3 Anesthesia: Anesthesia Evaluation, General and MAC Risk of > 500 ml blood loss (7ml/kg in children): No Medications/Allergies Home Medications Medication Instructions Recorded Confirmed Last Taken Type medical marijuana 1 ea inhalation DAILY 03/13/21 06/03/22 06/04/22 History calcium polycarbophil 625 mg 625 mg PO BID #60 tabs 03/12/22 06/03/22 06/04/22 Rx tablet (FiberCon) lisinopril 20 mg tablet 20 mg PO DAILY #90 tabs 05/08/22 06/03/22 06/04/22 Rx pantoprazole 40 mg tablet,delayed 40 mg PO BID 6 weeks #84 tabs 05/24/22 06/03/22 06/04/22 Rx release (Protonix) metoclopramide HCl 10 mg tablet 10 mg PO Q6H PRN nausea and 06/01/22 06/03/22 06/04/22 Rx (Reglan) vomiting #15 tabs chlorthalidone 25 mg tablet 25 mg PO DAILY 06/03/22 06/03/22 06/04/22 History hydrocortisone 2.5 % topical cream 1 applic HI QID 10 days #30 grams 06/05/22 Unknown Rx with perineal applicator (Anusol-HC) Allergies Allergy/AdvReac Type Severity Reaction Status Date / Time No Known Allergies Allergy Verified 06/03/22 09:00 [facility] Anesthesia Medical History Anxiety and depression Chronic GERD Dizziness Hemorrhoids without complication HTN (hypertension) Hx of fracture of nose had it set Marijuana dependence New onset type 2 diabetes mellitus HgA1C 04-10-2021 6.3 Smoker Quit 08/31/2021 Spondylolisthesis at L5-S1 level Stool incontinence Surgical History History of esophagogastroduodenoscopy (EGD) Social History Smoking and tobacco status: current every day smoker cigarettes Second hand smoke exposure: Yes Alcohol intake: current Alcohol intake frequency: few times a week Desire information about alcohol rehabilitation?: No Marital status: Current occupational status: unemployed Data Anesthesia Cardiac Studies: No Data to Display
[2022-06-05] MEDS: sodium chloride 0.9% 1,000 ML 30 ML IV (06:31)
--- NOTE | 2022-06-05 06:52 | W.PM.OPSUD ---
Surgery/Procedure H&P Update DATE OF PROCEDURE: June 05, 2022 DATE H&P PERFORMED: 05/24/22 H&P UPDATE INFORMATION: I have reviewed H&P completed within last 30 days, I have examined patient prior to procedure and No changes to prior documentation PREOP DIAGNOSIS: Abdominal pain PLANNED PROCEDURE: Operation Date: 06/05/22 07:00 Proposed Procedures p 16884 EGD 49341 colon R10.13, K92.1,, K21.9(Not Applicable) - DO ann King Colonoscopy(Not Applicable) - Pedrito Hodges DO
[2022-06-05 07:45] VITALS: BP 126/81; PULSE 77; RESP 18; TEMP 36.5; O2SAT 92
[2022-06-05 07:55] VITALS: BP 160/80; PULSE 80; RESP 18; TEMP 36.3; O2SAT 93
--- NOTE | 2022-06-05 13:03 | ANE.PACU2 ---
Inpatient post-anesthesia follow up: Airway intact: Yes Vital signs: Temperature 97.4 F Pulse Rate 80 Respiratory Rate 18 Blood Pressure 160/80 Pulse Oximetry 93 Oxygen Delivery Me thod Room Air Oxygen Flow Rate 2 Fraction of Inspir ed Oxygen Hydration adequate: Yes Nausea and vomiting: No Pain level: 2 Mental status: Baseline
== END 2022-06-05 08:22 | disposition home or self-care (01) ==
PROVIDERS: PCP Physician Assistant; Visit Provider Surgery
PROC: 0DJD8ZZ Inspection of Lower Intestinal Tract, Via Natural or Artificial Opening Endoscopic (ICD-10-PCS; CPT 45378; 2022-06-05 07:00)
PROC: 0DJ08ZZ Inspection of Upper Intestinal Tract, Via Natural or Artificial Opening Endoscopic (ICD-10-PCS; CPT 43235; 2022-06-05 07:00)
DX: K29.50 Unspecified chronic gastritis without bleeding (principal); D12.5 Benign neoplasm of sigmoid colon; K62.1 Rectal polyp; K64.8 Other hemorrhoids; K21.9 Gastro-esophageal reflux disease without esophagitis; E11.9 Type 2 diabetes mellitus without complications; I10 Essential (primary) hypertension; G47.30 Sleep apnea, unspecified; F17.210 Nicotine dependence, cigarettes, uncomplicated; Z79.82 Long term (current) use of aspirin
CPT/HCPCS: 43239; 45381; 45382; 45385; 88305; 88342; J2704; J7030

== ENCOUNTER → 2022-07-23 15:50 | Outpatient (BNVA) | payer BC, MEDICAID, SELFPAY | PROVIDERS: PCP Physician Assistant; Visit Provider Orthopaedic Surgery | DX: M48.02 Spinal stenosis, cervical region (principal) | CPT/HCPCS: 72050 ==

== ENCOUNTER → 2022-07-24 10:30 | Outpatient (BNVA) | payer BC, MEDICAID, SELFPAY | PROVIDERS: PCP Physician Assistant; Visit Provider Orthopaedic Surgery | DX: M17.0 Bilateral primary osteoarthritis of knee (principal) | CPT/HCPCS: 73560; 73565 ==

== ENCOUNTER 2022-08-07 11:03 | Emergency (ER) | payer BC, MEDICAID, SELFPAY ==
[2022-08-07 11:54] VITALS: PULSE 65; TEMP 36.9; O2SAT 97; BMI 29.1
--- NOTE | 2022-08-07 12:42 | XR_ITS ---
WS: [id number] XR shoulder LT min 2V* [id number] REASON FOR EXAM: L shoulder pain FINDINGS: No fracture or focal bone lesion. The acromioclavicular joint is intact with mild narrowing and minimal osteophytosis of the distal cla vicle. Glenohumeral joint is intact without significant narrowing. Presumed calcified lymph node in the base of the left neck. No other soft tissue abnormality. XR/XR shoulder LT min 2V* [id number] IMPRESSION: No acute bone or joint abnormality.
--- NOTE | 2022-08-07 13:15 | ED_ITS ---
HPI - Extremity Problem General: Chief complaint: Extremity Injury, Upper Stated complaint: Upper back/Left Shoulder Time Seen by Provider: 08/07/22 12:54 Source: patient and family Mode of arrival: ambulatory Limitations: no limitations History of Present Illness: Patient is a 42-year-old male who presents to ED today for complaint of left shoulder pain over the past few days. Patient states he woke up with the pain and thought it would go away on its own but it has not. Pain seems to be worse with range of motion of the shoulder. He denies any injury or trauma. Has not noticed any numbness, tingling, loss of sensation to the extremity. No color or temperature changes. He reports chronic neck pain currently at his baseline. Onset (ago): day(s) Pain Consistency: constant Location: left and upper extremity Quality: aching Radiation: none Relieving factors: immobilization Exacerbating factors: range of motion Associated symptoms: Reports no associated symptoms; Deny chest pain, fever(s) or rash Review of Systems Const: Denies: fever(s) Card: Denies: chest pain Resp: Denies: dyspnea Musc: Reports: neck pain (chronic-at baseline) and joint pain (L shoulder); Denies: back pain, extremity pain, extremity swelling, joint swelling, joint redness, joint warmth, joint stiffness, limited range of motion, muscle cramps, muscle weakness or decrease in muscle mass Skin/Breast: Denies: rash Neuro: Denies: headache(s), numbness in extremities, weakness in extremities or sensory changes PFSH ED PFSH: Medical History Anxiety and depression Chronic GERD Dizziness Hemorrhoids without complication HTN (hypertension) Hx of fracture of nose had it set Marijuana dependence New onset type 2 diabetes mellitus HgA1C 04-10-2021 6.3 Smoker Quit 08/31/2021 Spondylolisthesis at L5-S1 level Stool incontinence Surgical History History of esophagogastroduodenoscopy (EGD) Social History Smoking and tobacco status: current every day smoker cigarettes Second hand smoke exposure: Yes Alcohol intake: current Alcohol intake frequency: few times a week Desire information about alcohol rehabilitation?: No Substance/Drug Use: current Substance/Drug use frequency: daily Marital status: Current occupational status: unemployed Physical Exam Const: COMMON NORMALS: no acute distress, average body habitus, patient oriented x3, no limitations, healthy appearing, alert and well nourished Neck/C-Spine: COMMON NORMALS: full ROM GENERAL: Yes normal visual inspection CERVICAL SPINE: No pain with cervical ROM, No Cervical spine tenderness, No step off deformity, No Paracervical muscle tenderness and No Paracervical spasm Chest: COMMONS NORMALS: normal inspection of the chest and normal palpation of entire chest wall Resp: COMMON NORMALS: normal respiratory effort and clear to auscultation bilaterally AUSCULTATION: clear to auscultation bilaterally Cardio: COMMON NORMALS: regular rate and regular rhythm RATE: regular rate RHYTHM: regular rhythm Back/Pelvis: COMMON NORMALS: thoracic and lumbar spine normal to inspection, no thoracic nor lumbar tenderness and thoraco-lumbar ROM normal Extremity: COMMON NORMALS: normal to inspection, full ROM, capillary refill normal, no joint enlargement and no clubbing, cyanosis or edema GENERAL: Yes normal exam except as noted LEFT UPPER EXTREMITY: Yes shoulder joint (TTP medial edge scapula) Left shoulder joint: Yes ROM (normal) and Yes neurovascular exam (normal) EXTREMITY IMAGE (BACK): 1. point tenderness to medial edge of L scapula; full ROM of shoulder although movement does make discomfort worse Neuro: COMMON NORMALS: patient oriented x3, moves all extremities, no focal motor deficits and no sensory deficits noted SENSORIUM/ORIENTATION: Yes alert MOTOR EXAM: 5/5 motor strength present throughout Skin: COMMON NORMALS: no rashes or lesions noted GENERAL SKIN EXAM: no rashes or lesions noted Course Vital Signs: Vital signs: Vital Signs Temperature 98.5 F 08/07/22 11:54 Pulse Rate 65 08/07/22 11:54 Pulse Oximetry 97 08/07/22 11:54 Oxygen Delivery Me thod Room Air 08/07/22 11:54 MDM - Extremity (Nontraumatic) Medical Decision Making XR negative. He has full ROM of the shoulder. Will treat with NSAIDS/steroids/muscle relaxers. Discussed other conservative therapies at home. Recommend follow-up with PCP in 1 to 2 weeks if symptoms do not seem to be improving. Return ED precautions given. Discharge Plan Discharge Patient Disposition: Home Clinical Impression: Left shoulder pain Qualifiers: Chronicity: acute Qualified Code(s): M25.512 - Pain in left shoulder Condition: Stable Prescriptions: New diclofenac sodium 75 mg tablet,delayed release (DR/EC) 75 mg PO Q12H PRN (Reason: pain) Qty: 14 0RF methocarbamol 500 mg tablet 1,000 mg PO Q8H Qty: 30 0RF prednisone 10 mg tablet 60 mg PO DAILY 5 Days Qty: 30 0RF No Action medical marijuana 1 ea inhalation DAILY calcium polycarbophil [FiberCon] 625 mg tablet 625 mg PO BID Qty: 60 5RF pantoprazole [Protonix] 40 mg tablet,delayed release (DR/EC) 40 mg PO BID 42 Days Qty: 84 1RF lisinopril 20 mg tablet 20 mg PO DAILY Qty: 90 1RF chlorthalidone 25 mg tablet 25 mg PO DAILY metoclopramide HCl [Reglan] 10 mg tablet 10 mg PO Q6H PRN (Reason: nausea and vomiting) Qty: 15 0RF Discharge Orders: Discharge ED (Routine); Ordered 08/07/22 Ordered By: Terrie Avila Referrals: Stefani Schmitz PA [Primary Care Provider] - Activity Restrictions/Additional Instructions: As we discussed you may also try heat and lidocaine patches. You may continue to use the Biofreeze if you feel this helps with your discomfort. Please follow-up with your primary care provider in 1 to 2 weeks if symptoms do not seem to be improving. Coding Level of Care Code ED Boat Loader Helper for Amanda Boone
== END 2022-08-07 13:36 | disposition home or self-care (01) ==
PROVIDERS: Emergency Provider Physician Assistant; PCP Physician Assistant
DX: M25.512 Pain in left shoulder (principal); I10 Essential (primary) hypertension; E11.9 Type 2 diabetes mellitus without complications; F17.210 Nicotine dependence, cigarettes, uncomplicated
CPT/HCPCS: 73030; 99283

== ENCOUNTER 2022-08-09 09:02 | Outpatient (CLI) | payer BC, MEDICAID, SELFPAY ==
--- NOTE | 2022-08-09 09:30 | MR_ITS ---
WS: [id number] MRI CERVICAL SPINE NONCONTRAST TECHNIQUE: Sagittal T1, T2 and STIR imaging. Axial T2, gradient, and fiesta imaging. CLINICAL INFORMATION: neck pain COMPARISON: CT October 2020 FINDINGS: Straightening of the normal cervical lordosis. Cord signal is normal. Disc bulging worse at C4-C6. Mi ld spondylitic changes. Tiny disc protrusions upper thoracic spine at T2-T3 and T3-T4. C2-C3: Normal. C3-C4: Mild facet arthropathy. Mild RIGHT and no significant LEFT foraminal narrowing. C4-C5: Disc osteophyte complex with endplate ridging. Mild central canal stenosis. Mild bilateral bon y foraminal narrowing. Mild facet arthropathy. C5-C6: Disc osteophyte complex with endplate ridging. Tiny LEFT pericentral protrusion. Moderate cent ral canal stenosis with indentation on cervical cord. Moderate to severe LEFT and moderate RIGHT bony foraminal narrowing. Moderate facet arthropathy. C6-C7: Disc osteophytic complex with endplate ridging. Severe LEFT and mild RIGHT bony foraminal narr owing. Mild central canal stenosis. C7-T1: Osteophytic ridging with mild bilateral bony foraminal narrowing. Spinal canal is patent. T1-T2: Mild LEFT greater than RIGHT bony foraminal narrowing. Visualized brain stem structures: Normal. Prevertebral soft tissues: Normal. MR/MR cervical spin wo con* [id number] IMPRESSION: 1. Straightening of the normal cervical lordosis. Disc osteophyte protrusion C 4-C6 with indentation on the cervical cord. This is worse at C5-C6 with moderat e central canal stenosis and indentation LEFT ventral cervical cord. 2. Mild central canal stenosis C4-C5 and C6-C7. 3. Moderate to severe bony foraminal narrowing worse at LEFT C5-C6 and LEFT C6 -C7.
== END 2022-08-09 09:03 | disposition home or self-care (01) ==
LOC: RAD 09:08
PROVIDERS: PCP Physician Assistant; Visit Provider Orthopaedic Surgery
DX: M48.02 Spinal stenosis, cervical region (principal)
CPT/HCPCS: 72141

== ENCOUNTER 2022-09-04 19:03 | Emergency (ER) | payer BC, MEDICAID, SELFPAY ==
[2022-09-04 19:23] VITALS: BP 159/93; PULSE 82; RESP 18; TEMP 37; O2SAT 97; BMI 29.1
--- NOTE | 2022-09-04 19:29 | XRR_ITS ---
PROCEDURE INFORMATION: Exam: XR Right Knee Exam date and time: 09/04/2022 7:34 PM Age: 42 years old Clinical indication: Pain; Knee; Right; Additional info: Injury, kicked door TECHNIQUE: Imaging protocol: Radiologic exam of the right knee. Views: 3 views. COMPARISON: No relevant prior studies available. FINDINGS: Bones/joints: Moderate tricompartmental osteoarthritis of the knee. Small joint effusion. Soft tissues: Normal. Vasculature: Scattered vascular calcifications. XR/XR knee RT 3V* [id number] IMPRESSION: 1. Negative for fracture or dislocation. 2. Moderate tricompartmental osteoarthritis of the knee. 3. Scattered vascular calcifications. 4. Small joint effusion.
--- NOTE | 2022-09-04 19:38 | W.ED.EXTPRO ---
HPI - Extremity Problem General: Chief complaint: Extremity Injury, Lower Stated complaint: right knee injury Time Seen by Provider: 09/04/22 19:28 History of Present Illness: 42-year-old male patient comes in today with pain and injury to the right knee. Patient reports last night he kicked the door with his leg and since then he has had increased knee pain and discomfort. Patient reports he was intoxicated at the time. Patient denies any other injury. No obvious deformity is noted to the knee. Review of patient's record notes that patient has osteoarthritis to the knee, chronic pain, hypertension, and GERD. Associated symptoms: Deny chest pain, fever(s) or rash Review of Systems General: Reports: 10 or more systems reviewed and unremarkable except in HPI and below Const: Denies: fever(s) Card: Denies: chest pain Resp: Denies: dyspnea GI: Denies: vomiting Musc: Reports: joint pain (Right knee) Skin/Breast: Denies: rash PFSH ED PFSH: Medical History Anxiety and depression Chronic GERD Dizziness Hemorrhoids without complication HTN (hypertension) Hx of fracture of nose had it set Marijuana dependence New onset type 2 diabetes mellitus HgA1C 04-10-2021 6.3 Smoker Quit 08/31/2021 Spondylolisthesis at L5-S1 level Stool incontinence Surgical History History of esophagogastroduodenoscopy (EGD) Social History Smoking and tobacco status: current every day smoker cigarettes Second hand smoke exposure: Yes Alcohol intake: current Alcohol intake frequency: few times a week Desire information about alcohol rehabilitation?: No Substance/Drug Use: current Substance/Drug use frequency: daily Marital status: Current occupational status: unemployed Physical Exam Const: COMMON NORMALS: alert HENMT: COMMON NORMALS: normocephalic HEAD & SCALP: normocephalic Resp: COMMON NORMALS: normal respiratory effort and clear to auscultation bilaterally AUSCULTATION: clear to auscultation bilaterally Back/Pelvis: COMMON NORMALS: thoracic and lumbar spine normal to inspection Extremity: COMMON NORMALS: normal to inspection Neuro: SENSORIUM/ORIENTATION: Yes alert Skin: COMMON NORMALS: turgor normal GENERAL SKIN EXAM: turgor normal Course Vital Signs: Vital signs: Vital Signs Temperature 98.6 F 09/04/22 19:23 Pulse Rate 82 09/04/22 19:23 Respiratory Rate 18 09/04/22 19:23 Blood Pressure 159/93 09/04/22 19:23 Pulse Oximetry 97 09/04/22 19:23 Oxygen Delivery Me thod Room Air 09/04/22 19:23 MDM - Extremity (Nontraumatic) Medical Decision Making 42-year-old male patient comes in today for complaints of injury to the right knee. On exam patient has no obvious swelling left posterior tenderness on palpation of the knee joint. Distal pulses and sensation are intact. Differential diagnosis includes but not limited to sprain, fracture, osteoarthritis, contusion. X-ray notes no fracture or dislocation. Patient does have a small joint effusion noted on the x-ray, along with tricompartmental joint disease. Reviewed exam with patient with recommendation for treatment and follow-up. Patient reported understanding agreed to plan. Lab Data Radiology Impressions Knee X-Ray 09/04/22 19:29 IMPRESSION: 1. Negative for fracture or dislocation. 2. Moderate tricompartmental osteoarthritis of the knee. 3. Scattered vascular calcifications. 4. Small joint effusion. Discharge Plan Discharge Patient Disposition: Home Clinical Impression: Injury of right knee Qualifiers: Encounter type: initial encounter Qualified Code(s): S89.91XA - Unspecified injury of right lower leg, initial encounter Condition: Stable Prescriptions: New hydrocodone-acetaminophen 5-325 mg tablet 1 tab PO Q8H PRN (Reason: pain (scale score 7-10)) Qty: 7 0RF No Action medical marijuana 1 ea inhalation DAILY calcium polycarbophil [FiberCon] 625 mg tablet 625 mg PO BID Qty: 60 5RF pantoprazole [Protonix] 40 mg tablet,delayed release (DR/EC) 40 mg PO BID 42 Days Qty: 84 1RF lisinopril 20 mg tablet 20 mg PO DAILY Qty: 90 1RF diclofenac sodium 75 mg tablet,delayed release (DR/EC) 75 mg PO Q12H PRN (Reason: pain) Qty: 14 0RF methocarbamol 500 mg tablet 1,000 mg PO Q8H Qty: 30 0RF lidocaine 4 % adhesive patch,medicated 1 patch topical Q12H PRN (Reason: pain) Qty: 10 0RF chlorthalidone 25 mg tablet 25 mg PO DAILY metoclopramide HCl [Reglan] 10 mg tablet 10 mg PO Q6H PRN (Reason: nausea and vomiting) Qty: 15 0RF Discharge Orders: Discharge ED (Routine); Ordered 09/04/22 Ordered By: Mynor Muñiz Referrals: Stefani Schmitz PA [Primary Care Provider] - Discharge Diet: Usual diet Discharge Activity: Increase activity as tolerated Patient Instructions: Knee Pain (ED) Activity Restrictions/Additional Instructions: Activity as tolerated. Use acetaminophen and/or ibuprofen to control knee pain. Maintain activity as tolerated. Follow-up with primary care for further instruction. Return to ED for new concerns. Coding Level of Care Code ED Manager Voice for Amanda Boone
[2022-09-04] MEDS: HYDROcodone-acetaminophen 5-325 mg Tablet 1 TAB PO (20:04)
== END 2022-09-04 20:08 | disposition home or self-care (01) ==
PROVIDERS: Emergency Provider Nurse Practitioner Family; PCP Physician Assistant
DX: S89.91XA Unspecified injury of right lower leg, initial encounter (principal); I10 Essential (primary) hypertension; E11.9 Type 2 diabetes mellitus without complications; F17.210 Nicotine dependence, cigarettes, uncomplicated; W22.09XA Striking against other stationary object, initial encounter
CPT/HCPCS: 73562; 99283

== ENCOUNTER 2022-09-18 09:57 | Emergency (ER) | payer BC, MEDICAID, SELFPAY ==
[2022-09-18 10:06] VITALS: BP 137/110; PULSE 130; RESP 16; TEMP 36.8; O2SAT 99; BMI 29.1
[2022-09-18] MEDS: ondansetron 2 mg/ML SDV 2 mL 4 MG IVP (10:44)
[2022-09-18] MEDS: sodium chloride 0.9% 1,000 ML 999 ML IV ×2 (10:45→12:15)
--- NOTE | 2022-09-18 10:48 | CT_ITS ---
WS: [id number] CT ABDOMEN AND PELVIS NONCONTRAST HISTORY: Abdominal pain TECHNIQUE: Imaging performed through the abdomen and pelvis. Coronal and sagittal reformats are submi tted. All CT scans at [facility] use at least one of these dose optimization techniques: auto mated exposure control; mA and/or kV adjustment per patient size (includes targeted exams where dose is matched to clinical indication); or iterative reconstruction. DLP: 540.33 mGy.cm COMPARISON: 05/20/2022 Lower thorax: Lung bases are clear. Visualized heart is normal. No hiatal hernia. Liver: Mildly enlarged liver with hepatic steatosis. No bile duct dilatation Gallbladder: Normal gallbladder. No pericholecystic fluid or cholelithiasis. No gallbladder wall thic kening. Pancreas: Normal size and attenuation. Normal pancreatic duct. No pancreatitis or mass. Spleen: Normal. Adrenal glands: Normal. No mass. Right kidney: Mild perinephric stranding. No obstruction. Left kidney: Mild perinephric stranding with no obstruction. Aorta: Mild atherosclerosis abdominal aorta with no aneurysm. No free fluid, intraperitoneal air or significant lymphadenopathy. GI tract: Normal noncontrast imaging of the stomach, small bowel and colon. No obstruction or wall th ickening. Normal appendix. Abdominal wall: Negative. No hernia. Pelvis: Normal. Osseous structures: Bilateral L5 pars defects. CT/CT abdomen pelvis wo con [id number] IMPRESSION: 1. No GI tract obstruction. No colitis or wall thickening identified on this u nenhanced exam. 2. Mild bilateral perinephric stranding with no renal obstruction. 3. Mild hepatic steatosis. 4. Normal appendix.
[2022-09-18 10:58] LABS: Basophils # 0.1 10^3/uL (0.0-0.1); Basophils % 0.6 %; Eosinophils # 0.1 10^3/uL (0.0-0.8); Eosinophils % 1.3 %; Hematocrit 53.2 % (42.0-52.0); Hemoglobin 18.4 g/dL (11.7-16.6); Lymphocytes # 2.2 10^3/uL (0.8-4.8); Mean Corpuscular HGB Conc 34.6 g/dL (30.0-36.0); Mean Corpuscular Hemoglobin 31.3 pg (28.0-34.0); Mean Corpuscular Volume 90.5 fl (80-94); Mean Platelet Volume 10.3 fL (7.4-10.4); Monocytes % 9.2 %; Neutrophils # 7.38 10^3/uL (1.8-7.7); Neutrophils % 68.2 %; Nucleated Red Blood Cells % 0 %; Platelet Count 287 10^3/cmm (130-400); Red Blood Count 5.88 10^6/uL (4.1-5.3); Red Cell Distribution Width 13.4 % (12.1-15.1); White Blood Count 10.8 10^3/uL (4.0-10.0)
--- NOTE | 2022-09-18 11:07 | ED_ITS ---
HPI - Nausea/Vomiting/Diarrhea General: Chief complaint: Nausea/Vomiting/Diarrhea Stated complaint: diarrhea Time Seen by Provider: 09/18/22 10:03 Source: patient Mode of arrival: ambulatory History of Present Illness: 42-year-old male presents emergency room with complaints of nausea vomiting and diarrhea. Diarrhea history 3 days nausea and vomiting began this morning he said bilious like vomiting. Patient states he took a shot of hard liquor to try to control his symptoms this morning he does admit to drinking relatively regularly but is evasive about quantifying. No previous abdominal surgeries denies any medic easy melena hematemesis cough cramps no hematuria no history of nephrolithiasis does have some mild dysuria. No recent antibiotics MD elicited complaint: nausea, vomiting and diarrhea Onset (ago): day(s) (3) Description of vomiting: bilious Description of diarrhea: watery Associated nausea: Yes Location of pain: Epigastric and LUQ Pain consistency: constant Severity: moderate Quality: cramping Exacerbating factors: none Relieving factors: none Associated symtoms: Reports nausea; Denies altered mental status, anxiety, bloating, change in vision, chest pain, cough, diaphoresis, decreased urine output, dizziness, dysuria, epistaxis, fatigue, fecal incontinence, fevers/chills, headache(s), anorexia, malaise, myalgias, numbness, palpitations, rash, short of breath, syncope, tenesmus, tinnitus or weakness Review of Systems Const: Denies: fever(s), chills, fatigue, malaise or diaphoresis Eyes: Denies: change in vision ENMT: Denies: tinnitus or epistaxis Card: Denies: chest pain, palpitations or syncope Resp: Denies: dyspnea, productive cough or non-productive cough GI: Reports: abdominal pain, nausea, vomiting and diarrhea; Denies: bloating or fecal incontinence : Denies: dysuria, urinary frequency or urinary urgency Musc: Denies: back pain Skin/Breast: Denies: rash or pruritus Neuro: Denies: headache(s) or dizziness Psych: Denies: anxiety PFSH ED PFSH: Medical History Anxiety and depression Chronic GERD Dizziness Hemorrhoids without complication HTN (hypertension) Hx of fracture of nose had it set Marijuana dependence New onset type 2 diabetes mellitus HgA1C 01-04-2022 6.3 Smoker Quit 08/31/2021 Spondylolisthesis at L5-S1 level Stool incontinence Surgical History History of esophagogastroduodenoscopy (EGD) Social History Smoking and tobacco status: current every day smoker cigarettes Second hand smoke exposure: Yes Alcohol intake: current Alcohol intake frequency: few times a week Desire information about alcohol rehabilitation?: No Substance/Drug Use: current Substance/Drug use frequency: daily Marital status: Current occupational status: unemployed Physical Exam Const: EXAM LIMITATIONS: no altered mental status GENERAL APPEARANCE: cooperative and comfortable ORIENTATION/CONSCIOUSNESS: Yes awake, Yes oriented to person, Yes oriented to place and Yes oriented to time HENMT: COMMON NORMALS: normocephalic, atraumatic and hearing grossly normal bilaterally HEAD & SCALP: normocephalic and atraumatic Resp: COMMON NORMALS: normal respiratory effort, No retractions, No use of accessory muscles and clear to auscultation bilaterally AUSCULTATION: clear to auscultation bilaterally Cardio: COMMON NORMALS: regular rate, regular rhythm and No murmurs present (Cardio) RATE: regular rate RHYTHM: regular rhythm GI: COMMON NORMALS: No hepatosplenomegaly present AUSCULTATION: Yes normoactive bowel sounds PALPATION: Yes Tenderness to palpation present (GI) (Epigastric left upper quadrant), No Guarding due to palpation present (GI) and Yes No hepatosplenomegaly present Extremity: COMMON NORMALS: normal to inspection, capillary refill normal, no clubbing, cyanosis or edema, no calf tenderness and no pedal edema Neuro: SENSORIUM/ORIENTATION: Yes oriented to person, Yes oriented to place and Yes oriented to time Skin: COMMON NORMALS: no rashes or lesions noted GENERAL SKIN EXAM: no rashes or lesions noted Course Vital Signs: Vital signs: Vital Signs Temperature 98.3 F 09/18/22 10:06 Pulse Rate 99 09/18/22 12:26 Respiratory Rate 14 09/18/22 12:26 Blood Pressure 137/110 09/18/22 12:26 Pulse Oximetry 96 09/18/22 12:26 Oxygen Delivery Me thod Room Air 09/18/22 12:26 MDM - Nausea/Vomiting/Diarrhea Medical Decision Making Labs and imaging reviewed reviewed with the patient. No obstruction no sign of colitis. Laboratory test reviewed. No sign of cystitis. Discharge patient home suspect gastroenteritis clinical diet antiemetics as needed advance diet as tolerated after 1 to 2 days follow-up as needed or if not improving Medical Records I reviewed the patient's medical records. Lab Data I reviewed the patient's lab results. 09/18/22 10:43 09/18/22 10:43 Radiology Impressions Abdomen/Pelvis CT 09/18/22 10:48 IMPRESSION: 1. No GI tract obstruction. No colitis or wall thickening identified on this unenhanced exam. 2. Mild bilateral perinephric stranding with no renal obstruction. 3. Mild hepatic steatosis. 4. Normal appendix. Laboratory Results WBC 10.8 10^3/uL (4.0-10.0) H 09/18/22 10:43 RBC 5.88 10^6/uL (4.1-5.3) H 09/18/22 10:43 Hgb 18.4 g/dL (11.7-16.6) H 09/18/22 10:43 Hct 53.2 % (42.0-52.0) H 09/18/22 10:43 MCV 90.5 fl (80-94) 09/18/22 10:43 MCH 31.3 pg (28.0-34.0) 09/18/22 10:43 MCHC 34.6 g/dL (30.0-36.0) 09/18/22 10:43 RDW 13.4 % (12.1-15.1) 09/18/22 10:43 Plt Count 287 10^3/cmm (130-400) 09/18/22 10:43 MPV 10.3 fL (7.4-10.4) 09/18/22 10:43 Neut % (Auto) 68.2 % 09/18/22 10:43 Lymph % (Auto) 20.0 % 09/18/22 10:43 [place] % (Auto) 9.2 % 09/18/22 10:43 Eos % (Auto) 1.3 % 09/18/22 10:43 Baso % (Auto) 0.6 % 09/18/22 10:43 Neut # (Auto) 7.38 10^3/uL (1.8-7.7) 09/18/22 10:43 Lymph # (Auto) 2.2 10^3/uL (0.8-4.8) 09/18/22 10:43 [place] # (Auto) 1.0 10^3/uL (0.2-0.9) H 09/18/22 10:43 Eos # (Auto) 0.1 10^3/uL (0.0-0.8) 09/18/22 10:43 Baso # (Auto) 0.1 10^3/uL (0.0-0.1) 09/18/22 10:43 Nucleated RBC % (auto) 0 % 09/18/22 10:43 Nucleated RBCs # 0.0 /100WBC 09/18/22 10:43 Sodium 129 mmol/L (136-145) L 09/18/22 10:43 Potassium 4.0 mmol/L (3.5-5.1) 09/18/22 10:43 Chloride 92 mmol/L (98-107) L 09/18/22 10:43 Carbon Dioxide 18 mmol/L (22-29) L 09/18/22 10:43 Anion Gap 23.0 (5-19) H 09/18/22 10:43 BUN 19 mg/dL (6-20) 09/18/22 10:43 Creatinine 1.0 mg/dL (0.7-1.2) 09/18/22 10:43 GFR Calculation 81.6 mL/min (90-130) L 09/18/22 10:43 Glucose 126 mg/dL (65-115) H 09/18/22 10:43 Calculated Osmolality 272 mOsm/kg (285-295) L 09/18/22 10:43 Calcium 9.5 mg/dL (8.5-10.5) 09/18/22 10:43 Magnesium 1.7 mg/dL (1.7-2.3) 09/18/22 10:43 Total Bilirubin 0.6 mg/dL (0.15-1.2) 09/18/22 10:43 AST 45 U/L (0-40) H 09/18/22 10:43 ALT 44 U/L (0-41) H 09/18/22 10:43 Alkaline Phosphatase 93 U/L (40-130) 09/18/22 10:43 Total Protein 8.3 g/dL (6.6-8.7) 09/18/22 10:43 Albumin 4.5 g/dL (3.5-5.2) 09/18/22 10:43 Globulin 3.8 g/dL (1.3-4.6) 09/18/22 10:43 Lipase 45 U/L (13-60) 09/18/22 10:43 Urine Color Yellow (Yellow) 09/18/22 12:14 Urine Appearance Clear (CLEAR) 09/18/22 12:14 Urine pH 6 (5-7) 09/18/22 12:14 Ur Specific [employer] 1.020 (1.005-1.030) 09/18/22 12:14 Urine Protein 2+ (Negative) H 09/18/22 12:14 Urine Glucose (UA) Norm (Normal) 09/18/22 12:14 Urine Ketones Negative (Negative) 09/18/22 12:14 Urine Blood Neg (Negative) 09/18/22 12:14 Urine Nitrate Negative (Negative) 09/18/22 12:14 Urine Bilirubin Neg (Negative) 09/18/22 12:14 Urine Urobilinogen Norm mg/dL (Negative) 09/18/22 12:14 Ur Leukocyte Esterase Negative (Negative) 09/18/22 12:14 Urine RBC 0-4 /hpf (0-2) H 09/18/22 12:14 Urine WBC 0-4 /hpf (0-5) H 09/18/22 12:14 Ur Squamous Epith Cells 0-4 /hpf (0-5) H 09/18/22 12:14 Amorphous Sediment Not Reportable 09/18/22 12:14 Urine Bacteria Trace /hpf (NONE) 09/18/22 12:14 Hyaline Casts 0-4 /lpf H 09/18/22 12:14 Urine Mucus Trace /hpf 09/18/22 12:14 Ethyl Alcohol < 10 mg/dL (0-10) 09/18/22 10:43 Discharge Plan Discharge Patient Disposition: Home Clinical Impression: Gastroenteritis Condition: Stable Prescriptions: New ondansetron HCl 4 mg tablet 4 mg PO Q6H PRN (Reason: nausea and vomiting) Qty: 15 0RF No Action medical marijuana 1 ea inhalation DAILY calcium polycarbophil [FiberCon] 625 mg tablet 625 mg PO BID Qty: 60 5RF pantoprazole [Protonix] 40 mg tablet,delayed release (DR/EC) 40 mg PO BID 42 Days Qty: 84 1RF lisinopril 20 mg tablet 20 mg PO DAILY Qty: 90 1RF diclofenac sodium 75 mg tablet,delayed release (DR/EC) 75 mg PO Q12H PRN (Reason: pain) Qty: 14 0RF methocarbamol 500 mg tablet 1,000 mg PO Q8H Qty: 30 0RF lidocaine 4 % adhesive patch,medicated 1 patch topical Q12H PRN (Reason: pain) Qty: 10 0RF hydrocodone-acetaminophen 5-325 mg tablet 1 tab PO Q8H PRN (Reason: pain (scale score 7-10)) Qty: 7 0RF chlorthalidone 25 mg tablet 25 mg PO DAILY metoclopramide HCl [Reglan] 10 mg tablet 10 mg PO Q6H PRN (Reason: nausea and vomiting) Qty: 15 0RF Discharge Orders: Discharge ED (Routine); Ordered 09/18/22 Ordered By: Savage Carrasco Referrals: Stefani Schmitz PA [Primary Care Provider] - Discharge Diet: Clear Liquid Discharge Activity: Increase activity as tolerated Patient Instructions: Opioid Safety, Pain Management Activity Restrictions/Additional Instructions: You are seen today for abdominal pain. You are mildly dehydrated. You are given IV fluids. Liver functions were slightly elevated but your bilirubin was normal. Recommended that you use only clear liquid diet for the next 24 to 48 hours use ondansetron as needed for nausea or vomiting. Avoid alcohol and marijuana follow-up with your primary care doctor if not improving Coding Level of Care Code ED Board Liner Operator for Amanda Boone
[2022-09-18 11:09] LABS: Alcohol Level < 10 mg/dL (0-10); Lipase 45 U/L (13-60)
[2022-09-18 11:24] LABS: Alanine Aminotransferase 44 U/L (0-41); Albumin Level 4.5 g/dL (3.5-5.2); Alkaline Phosphatase 93 U/L (40-130); Aspartate Amino Transferase 45 U/L (0-40); Blood Urea Nitrogen 19 mg/dL (6-20); Calcium 9.5 mg/dL (8.5-10.5); Carbon Dioxide 18 mmol/L (22-29); Chloride 92 mmol/L (98-107); Globulin 3.8 g/dL (1.3-4.6); Glomerular Filtration Rate 81.6 mL/min (90-130); Glucose 126 mg/dL (65-115); Magnesium 1.7 mg/dL (1.7-2.3); Osmolality Calculated 272 mOsm/kg (285-295); Sodium 129 mmol/L (136-145); Total Bilirubin 0.6 mg/dL (0.15-1.2); Total Protein 8.3 g/dL (6.6-8.7)
[2022-09-18 12:26] VITALS: BP 137/110; PULSE 99; RESP 14; O2SAT 96
[2022-09-18] MEDS: lidocaine 2% viscous 15 ML, aluminum-mag hydrox-simethicon 30 ML, sucralfate oral liq 1 GM PO (12:51)
[2022-09-18 12:53] LABS: Add Urine Culture? No; Add Urine Microscopic? YES; Bacteria Urine TRACE /hpf; Bilirubin Urine Neg (Negative); Blood Urine Neg (Negative); Glucose Urine UA Norm (Normal); Hyaline Casts Urine 0-4 /lpf; Ketones Urine Negative (Negative); Leukocyte Esterase Urine Negative (Negative); Mucus Urine TRACE /hpf; Nitrate Urine Negative (Negative); Protein Urine 2+ (Negative); RBC Urine 0-4 /hpf (0-2); Squamous Epithelial Cell Urine 0-4 /hpf (0-5); Urine Appearance Clear (CLEAR); Urine Color Yellow (Yellow); Urobilinogen Urine Norm (Negative); WBC Urine 0-4 /hpf (0-5); pH Urine 6 (5-7)
== END 2022-09-18 13:35 | disposition home or self-care (01) ==
PROVIDERS: Emergency Provider Family Medicine; PCP Physician Assistant
DX: K52.9 Noninfective gastroenteritis and colitis, unspecified (principal)
CPT/HCPCS: 36415; 74176; 80053; 80307; 81001; 83690; 83735; 85025; 96361; 96374; 99285; J2405; J7030

== ENCOUNTER 2022-10-07 15:29 | Emergency (ER) | payer BC, MEDICAID, SELFPAY ==
[2022-10-07 15:39] VITALS: BP 129/86; PULSE 94; RESP 16; TEMP 36.6; O2SAT 98; BMI 29.4
--- NOTE | 2022-10-07 15:55 | W.ED.FALL ---
HPI - Fall General: Chief Complaint: Extremity Injury, Upper Stated Complaint: fall from a ladder, Left Arm injury Time Seen by Provider: 10/07/22 15:52 Source: patient Mode of arrival: ambulatory Limitations: no limitations History of Present Illness: Patient is a 42-year-old male who presents to ED today with a complaint of left arm and left leg injury following a fall from a ladder just prior to arrival. Patient states he did not strike his head or lose consciousness. He does not complain of any neck or back pain. He has been ambulatory since the fall. His main concern seems to be his left upper arm/humerus that he believes he has broke. He does not complain of any numbness, tingling, loss of sensation to the arm. He has not noticed any color or temperature changes. MD complaint: fall Onset (ago): hour(s) Fall from: from height (distance) (ladder-20 feet) Fall witnessed: yes, by family Place fall occurred: home Loss of consciousness: None Prolonged down time: no Symptoms prior to fall: none Context: tripped/slipped Location of injury - extremities: Left: shoulder, arm, elbow, forearm and thigh Severity scale (1-10): 10 Associated symptoms-after fall: Reports no associated symptoms; Denies abdominal pain, chest pain, headache(s), hematuria, lightheadedness or neck pain Review of Systems Eyes: Denies: change in vision, blurry vision, photophobia, eye discharge, floaters or seeing flashes ENMT: Denies: throat pain, odynophagia, ear or mastoid pain, ear discharge, nasal discharge, epistaxis or sinus pain Card: Denies: chest pain, palpitations, lightheadedness, syncope or pre-syncope Resp: Denies: dyspnea or pain on inspiration GI: Denies: abdominal pain : Denies: flank pain or hematuria Musc: Reports: extremity pain, extremity swelling (L humerus) and joint pain (L hip, L shoulder/elbow); Denies: neck pain, back pain, joint swelling, joint redness or joint warmth Skin/Breast: Reports: other (small abrasion left lower leg-no bony tenderness here) Neuro: Denies: headache(s), numbness in extremities, weakness in extremities, sensory changes or dizziness [facility] PFSH: Medical History Anxiety and depression Chronic GERD Dizziness Hemorrhoids without complication HTN (hypertension) Hx of fracture of nose had it set Marijuana dependence New onset type 2 diabetes mellitus HgA1C 04-10-2021 6.3 Smoker Quit 08/31/2021 Spondylolisthesis at L5-S1 level Stool incontinence Surgical History History of esophagogastroduodenoscopy (EGD) Social History Smoking and tobacco status: current every day smoker cigarettes Second hand smoke exposure: Yes Alcohol intake: current Alcohol intake frequency: few times a week Desire information about alcohol rehabilitation?: No Substance/Drug Use: current Substance/Drug use frequency: daily Marital status: Current occupational status: unemployed Physical Exam Const: COMMON NORMALS: average body habitus, patient oriented x3, no limitations, healthy appearing, alert and well nourished GENERAL APPEARANCE: cooperative and in distress (due to pain) ORIENTATION/CONSCIOUSNESS: Yes awake, Yes oriented to person, Yes oriented to place and Yes oriented to time HENMT: COMMON NORMALS: normocephalic, atraumatic and TM's normal bilaterally HEAD & SCALP: normal to inspection, normocephalic and atraumatic; no Munoz's sign, no hematoma and no raccoon eyes FACE & SINUS: normal facial exam TYMPANIC MEMBRANE: TM's normal bilaterally MOUTH: other (no intraoral injuries noted) Eye: COMMON NORMALS: Equal, round and reactive pupils present and EOMs intact bilaterally GENERAL EYE: appearance normal, both eyes and all related structures and normal light reflex PUPIL: Yes Equal, round and reactive pupils present DIRECT OPHTHALMOSCOPY: Yes normal light reflex Neck/C-Spine: COMMON NORMALS: full ROM GENERAL: Yes normal visual inspection CERVICAL SPINE: Yes cervical ROM normal, No pain with cervical ROM, No Cervical spine tenderness, No step off deformity and No Paracervical muscle tenderness Chest: COMMONS NORMALS: normal inspection of the chest and normal palpation of entire chest wall Resp: COMMON NORMALS: normal respiratory effort and clear to auscultation bilaterally AUSCULTATION: clear to auscultation bilaterally Cardio: COMMON NORMALS: regular rate and regular rhythm RATE: regular rate RHYTHM: regular rhythm GI: COMMON NORMALS: Normal to inspection, nondistended, normoactive bowel sounds present, Soft to palpation, non-tender, No hepatosplenomegaly present and no masses INSPECTION: Yes normal to inspection and No abdominal wall ecchymosis AUSCULTATION: Yes normoactive bowel sounds PALPATION: Yes Soft to palpation and Yes No hepatosplenomegaly present Back/Pelvis: COMMON NORMALS: thoracic and lumbar spine normal to inspection, no thoracic nor lumbar tenderness and thoraco-lumbar ROM normal Extremity: GENERAL: Yes normal exam except as noted LEFT UPPER EXTREMITY: Yes shoulder joint (no ROM due to mid humeral pain but does not appear TTP), Yes upper arm (pain/swelling/deformity consistent with midshaft humeral fracture) Left upper arm: Yes neurovascular exam (normal) and Yes elbow joint (will not move due to humeral pain but does not appear TTP) Left elbow: Yes neurovascular exam (normal) LEFT LOWER EXTREMITY: Yes hip joint (fairly good ROM although he states causes pain to upper leg) Left hip: Yes neurovascular exam (normal) and Yes upper leg (TTP mid thigh w/o notable swelling or deformity) Neuro: JOHANNY COMA SCALE: document GCS findings Johanny coma scale eye opening: Spontaneous Johanny coma scale verbal response: Orientated Johanny coma scale motor response: Obey commands Johanny coma scale total score: 15 COMMON NORMALS: patient oriented x3, CN's II-XII intact bilaterally, moves all extremities, no focal motor deficits, no sensory deficits noted and gait normal SENSORIUM/ORIENTATION: Yes alert, Yes oriented to person, Yes oriented to place and Yes oriented to time SPEECH: speech normal GAIT: Yes Normal gait present Skin: COMMON NORMALS: no rashes or lesions noted GENERAL SKIN EXAM: no rashes or lesions noted TRAUMA: no lacerations or abrasions Course Consultations: Consultation #1: Dr. Florez-coapt splint/sling and will see in office Vital Signs: Vital signs: Vital Signs Temperature 97.9 F 10/07/22 15:39 Pulse Rate 81 10/07/22 17:36 Respiratory Rate 16 10/07/22 15:39 Blood Pressure 125/82 10/07/22 17:36 Pulse Oximetry 95 10/07/22 17:36 Oxygen Delivery Me thod Room Air 10/07/22 15:39 MDM - Fall Medical Decision Making Patient with a midshaft humeral fracture. Distal pulses are intact. Radial nerve appears uninjured. I spoke to Dr. Florez and we will place patient in a coapt splint/sling and he will follow-up this week in office. Strict return to ED precautions given. Lab Data Radiology Impressions Femur X-Ray 10/07/22 16:21 IMPRESSION: No acute findings. Forearm X-Ray 10/07/22 16:21 IMPRESSION: No acute findings. Hip/Pelvis X-Ray 10/07/22 16:21 IMPRESSION: 1. No acute findings. 2. Soft tissue edema proximal left thigh Humerus X-Ray 10/07/22 16:21 IMPRESSION: Transverse fracture midshaft left humerus Shoulder X-Ray 10/07/22 16:21 IMPRESSION: Comminuted fracture proximal shaft left humerus Discharge Plan Discharge Patient Disposition: Home Clinical Impression: Fall from ladder Qualifiers: Encounter type: initial encounter Qualified Code(s): W11.XXXA - Fall on and from ladder, initial encounter Transverse fracture of shaft of humerus Qualifiers: Encounter type: initial encounter Fracture type: closed Fracture alignment: nondisplaced Laterality: left Qualified Code(s): S42.325A - Nondisplaced transverse fracture of shaft of humerus, left arm, initial encounter for closed fracture Condition: Stable Prescriptions: New hydrocodone-acetaminophen 5-325 mg tablet 1 tab PO .q4-6 PRN (Reason: pain) Qty: 20 0RF No Action medical marijuana 1 ea inhalation DAILY venlafaxine [Effexor XR] 150 mg capsule,extended release 24hr 150 mg PO DAILY amoxicillin-pot clavulanate 875-125 mg tablet 1 tab PO BID 7 Days Qty: 14 0RF benzonatate 200 mg capsule 200 mg PO BID PRN (Reason: cough) Qty: 14 0RF calcium polycarbophil [FiberCon] 625 mg tablet 625 mg PO BID Qty: 60 5RF pantoprazole [Protonix] 40 mg tablet,delayed release (DR/EC) 40 mg PO BID 42 Days Qty: 84 1RF lisinopril 20 mg tablet 20 mg PO DAILY Qty: 90 1RF chlorthalidone 25 mg tablet 25 mg PO DAILY ondansetron HCl 4 mg tablet 4 mg PO Q6H PRN (Reason: nausea and vomiting) Qty: 15 0RF Discharge Orders: Discharge ED (Routine); Ordered 10/07/22 Ordered By: Terrie Avila Referrals: Stefani Schmitz PA [Primary Care Provider] - Patient Instructions: Opioid Safety, Pain Management Activity Restrictions/Additional Instructions: As we discussed case management should reach out to you later this week to set you up with your follow-up orthopedic appointment. You need to stay in your splint at all times until this appointment. You need to return to the emergency department for any numbness, tingling, loss of sensation to the arm or if you start noticing any color changes such as paleness or coolness to the extremity. Coding Level of Care Code ED Donations Attendant for Amanad Boone
[2022-10-07 16:18] VITALS: BP 138/88; PULSE 84; O2SAT 94
--- NOTE | 2022-10-07 16:21 | XRR_ITS ---
PROCEDURE INFORMATION: Exam: XR Left Shoulder Exam date and time: 10/07/2022 4:30 PM Age: 42 years old Clinical indication: Injury or trauma; Blunt trauma (contusions or hematomas); Shoulder; Left; Injury details: Fall from ladder TECHNIQUE: Imaging protocol: Radiologic exam of the left shoulder. Views: 2 or more views. COMPARISON: CR XR shoulder LT min 2V* [id number] 08/07/2022 12:59 PM FINDINGS: Bones/joints: Comminuted displaced fracture of the proximal shaft left humerus. Soft tissues: Normal. XR/XR shoulder LT min 2V* [id number] IMPRESSION: Comminuted fracture proximal shaft left humerus
--- NOTE | 2022-10-07 16:21 | XRR_ITS ---
PROCEDURE INFORMATION: Exam: XR Left Hip Exam date and time: 10/07/2022 4:39 PM Age: 42 years old Clinical indication: Injury or trauma; Blunt trauma (contusions or hematomas); Left; Hip; Injury details: Fall from ladder; Additional info: Fall/trauma; One view pelvis too please TECHNIQUE: Imaging protocol: Radiologic exam of the left hip. Views: 2 or 3 views hip with pelvis when performed. COMPARISON: CT abdomen pelvis wo con [id number] 09/18/2022 11:08 AM FINDINGS: Bones/joints: Unremarkable. No acute fracture. Soft tissues: Soft tissue edema is seen in the proximal left thigh XR/XR hip LT 2-3V wo/w pel* [id number] IMPRESSION: 1. No acute findings. 2. Soft tissue edema proximal left thigh
--- NOTE | 2022-10-07 16:21 | XRR_ITS ---
PROCEDURE INFORMATION: Exam: XR Left Forearm Exam date and time: 10/07/2022 4:34 PM Age: 42 years old Clinical indication: Injury or trauma; Blunt trauma (contusions or hematomas); Arm, lower; Left; Injury details: Fall from ladder TECHNIQUE: Imaging protocol: Radiologic exam of the left forearm. Views: 2 views. COMPARISON: CR XR hand LT min 3V* [id number] 11/12/2020 12:09 PM FINDINGS: Bones/joints: Normal. Soft tissues: Normal. XR/XR forearm LT 2V [id number] IMPRESSION: No acute findings.
--- NOTE | 2022-10-07 16:21 | XRR_ITS ---
PROCEDURE INFORMATION: Exam: XR Left Humerus Exam date and time: 10/07/2022 4:33 PM Age: 42 years old Clinical indication: Injury or trauma; Blunt trauma (contusions or hematomas); Arm, upper; Left; Injury details: Fall from ladder; Additional info: Fall/trauma/deformity TECHNIQUE: Imaging protocol: Radiologic exam of the left humerus. Views: 2 or more views. COMPARISON: CR XR shoulder LT min 2V* [id number] 10/07/2022 4:30 PM FINDINGS: Bones/joints: There is transverse displaced fracture of the midshaft left humerus Soft tissues: Normal. XR/[place] [id number] IMPRESSION: Transverse fracture midshaft left humerus
--- NOTE | 2022-10-07 16:21 | XRR_ITS ---
PROCEDURE INFORMATION: Exam: XR Left Femur Exam date and time: 10/07/2022 4:40 PM Age: 42 years old Clinical indication: Injury or trauma; Blunt trauma; Thigh or upper leg; Left; Injury details: Fall from ladder; Additional info: Fall/trauma TECHNIQUE: Imaging protocol: Radiologic exam of the left femur. Views: 2 views. COMPARISON: CR XR hip LT 2-3V wo/w pel* [id number] 10/07/2022 4:39 PM FINDINGS: Bones/joints: Unremarkable. No acute fracture. Soft tissues: Unremarkable. XR/XR femur LT min 2V* [id number] IMPRESSION: No acute findings.
[2022-10-07] MEDS: ondansetron 2 mg/ML SDV 2 mL 4 MG IVP (16:51)
[2022-10-07] MEDS: morphine 4 mg/mL SDV 1 mL IVP (16:51)
[2022-10-07 17:36] VITALS: BP 125/82; PULSE 81; O2SAT 95
--- NOTE | 2022-10-08 09:48 | DCPLANNER ---
Addendum entered by Erica Lindquist 11/14/22 12:05: Patient did attend this appointment Addendum entered by Erica Lindquist 10/09/22 10:39: Patient has a follow up appointment scheduled for 10.10.22 at 10:45 with Isidro Jackson at ortho. Original Note: manager training and development had message to schedule a follow up appointment for patient with ortho. manager training and development sent patients information to the front office staff at ortho. Patients information will be printed and reviewed. Clinic will call patient with appointment information.
== END 2022-10-07 17:37 | disposition home or self-care (01) ==
PROVIDERS: Emergency Provider Physician Assistant; PCP Physician Assistant
DX: M79.602 Pain in left arm (principal); M79.605 Pain in left leg; W11.XXXA Fall on and from ladder, initial encounter; Y93.9 Activity, unspecified; Y92.9 Unspecified place or not applicable
CPT/HCPCS: 73030; 73060; 73090; 73502; 73552; 96374; 96375; 99284; J2270; J2405

== ENCOUNTER 2022-10-10 06:00 | Outpatient (CLI) | payer BC, MEDICAID, SELFPAY | END 2022-10-10 06:01 | LOC: SOT 10-11 15:15 | PROVIDERS: Visit Provider Physician Assistant | DX: Z46.89 Encounter for fitting and adjustment of other specified devices (principal); M79.621 Pain in right upper arm | CPT/HCPCS: 97760; L3670 ==

== ENCOUNTER → 2022-10-10 10:42 | Outpatient (BNVA) | payer BC, MEDICAID, SELFPAY | PROVIDERS: PCP Physician Assistant; Referring Provider Physician Assistant; Visit Provider Physician Assistant | DX: S42.325A Nondisplaced transverse fracture of shaft of humerus, left arm, initial encounter for closed fracture (principal); W19.XXXA Unspecified fall, initial encounter | CPT/HCPCS: 73060 ==

== ENCOUNTER → 2022-10-15 10:34 | Outpatient (BNVA) | payer BC, MEDICAID, SELFPAY | PROVIDERS: Visit Provider Physician Assistant | DX: S42.322D Displaced transverse fracture of shaft of humerus, left arm, subsequent encounter for fracture with routine healing (principal); W11.XXXD Fall on and from ladder, subsequent encounter | CPT/HCPCS: 73060 ==

== ENCOUNTER → 2022-11-05 10:10 | Outpatient (BNVA) | payer BC, MEDICAID, SELFPAY | PROVIDERS: Visit Provider Physician Assistant | DX: S42.32 Transverse fracture of shaft of humerus (principal); X58.XXXD Exposure to other specified factors, subsequent encounter | CPT/HCPCS: 73060 ==

== ENCOUNTER 2022-11-19 18:02 | Emergency (ER) | payer BC, MEDICAID, SELFPAY ==
--- NOTE | 2022-11-19 | XRR_ITS ---
[facility] Final Radiology Report Call: [phone] assistance Online chat: [email or web address] Name: MICHAEL GRIFFIN Age: 42Years M Date: 11/19/2022 MRN: [id number] SSN: -- : 1980 Study: XR ELBOW COMPLETE MIN OF 3 VIEWS Requesting Physician: DONNY PHILIP Images: 3 Add?l Studies: Provided Clinical History: PROCEDURE INFORMATION: Exam: XR Left Elbow Exam date and time: 11/19/2022 6:46 PM Age: 42 years old Clinical indication: Pain; Elbow; Left TECHNIQUE: Imaging protocol: Radiologic exam of the left elbow. Views: 3 or more views. COMPARISON: No relevant prior studies available. FINDINGS: Limitations: A splint on the distal humerus limits evaluation. Bones/joints: The alignment of the joints is anatomic and the joint spaces are maintained. There is no evidence of acute fracture. There are no abnormal fat pads to suggest a joint effusion. Soft tissues: No soft tissue swelling is identified. There are no radiopaque foreign bodies. IMPRESSION: Unremarkable radiographic appearance of the left elbow. Thank you for allowing us to participate in the care of your patient. Dictated and Authenticated by: Emmanuel Catsaneda MD 11/19/2022 7:32 PM Central Time ([place] & [place]) [facility] CENTERLaurent
[2022-11-19 18:17] VITALS: BP 143/83; PULSE 110; RESP 16; TEMP 36.8; O2SAT 95; BMI 29.9
--- NOTE | 2022-11-19 18:33 | W.ED.EXTPRO ---
HPI - Extremity Problem General: Chief complaint: Extremity Injury, Upper Stated complaint: Shoulder and Elbow Pain Time Seen by Provider: 11/19/22 18:31 History of Present Illness: 42-year-old male patient comes in today with complaints of left elbow and shoulder pain. Patient has a known fracture of the left shaft of the humerus. Patient states that he has a lot of numbness and tingling radiating from the elbow down. Patient appears nontoxic. Distal pulses are intact. Patient denies any new injuries. Review of Systems General: Reports: 10 or more systems reviewed and unremarkable except in HPI and below Musc: Reports: extremity pain Neuro: Reports: numbness in extremities PFSH ED PFSH: Medical History Anxiety and depression Chronic GERD Dizziness Hemorrhoids without complication HTN (hypertension) Hx of fracture of nose had it set Marijuana dependence New onset type 2 diabetes mellitus HgA1C 04-10-2021 6.3 Smoker Quit 08/31/2021 Spondylolisthesis at L5-S1 level Stool incontinence Surgical History History of esophagogastroduodenoscopy (EGD) Social History Smoking and tobacco status: current every day smoker cigarettes Second hand smoke exposure: Yes Alcohol intake: current Alcohol intake frequency: few times a week Desire information about alcohol rehabilitation?: No Substance/Drug Use: current Substance/Drug use frequency: daily Marital status: Current occupational status: unemployed Physical Exam Const: COMMON NORMALS: alert HENMT: COMMON NORMALS: normocephalic HEAD & SCALP: normocephalic Neck/C-Spine: COMMON NORMALS: full ROM Resp: COMMON NORMALS: normal respiratory effort Cardio: RATE: tachycardic Extremity: NARRATIVE EXTREMITY EXAM: co-adaption Velcro splint noted to the left humerus LEFT UPPER EXTREMITY: Yes elbow joint (Mild swelling, no redness or induration) Neuro: SENSORIUM/ORIENTATION: Yes alert Course Vital Signs: Vital signs: Vital Signs Temperature 98.3 F 11/19/22 18:17 Pulse Rate 110 H 11/19/22 18:17 Respiratory Rate 16 11/19/22 18:17 Blood Pressure 143/83 11/19/22 18:17 Pulse Oximetry 95 11/19/22 18:17 MDM - Extremity (Nontraumatic) Medical Decision Making 42-year-old male patient comes in today with complaints of left elbow and left shoulder pain. Patient reports some numbness and tingling distally to the elbow on the left side. Patient thought that he might need some x-rays done on the elbow and shoulder. Reassured patient that the shoulder is had x-rays already performed since his injury to his humerus. Patient reports that it feels like his funny bone has been hit. Distal pulses and sensation are intact. Differential diagnosis includes but not limited to ulnar nerve injury, malingering, joint effusion. The elbow was unremarkable. Patient may have a nerve entrapment in the elbow causing his discomfort with numbness and pain. Another thought might be the splint is kind of aggravating the ulnar nerve there. I recommend follow-up with neurology for further evaluation they may need to do a nerve conduction study for further evaluation to see if there is any injury from the fracture. Patient was agreeable to this plan and case management was requested for assistance with referral. Discharge Plan Discharge Condition: Stable Prescriptions: No Action medical marijuana 1 ea inhalation DAILY venlafaxine [Effexor XR] 150 mg capsule,extended release 24hr 150 mg PO DAILY amoxicillin-pot clavulanate 875-125 mg tablet 1 tab PO BID 7 Days Qty: 14 0RF benzonatate 200 mg capsule 200 mg PO BID PRN (Reason: cough) Qty: 14 0RF (DME) Mcclellan brace See Rx Instructions .Route .MEDSUPPLY Qty: 1 0RF Rx Instructions: As directed Also known as clam shell humeral brace methocarbamol 500 mg tablet 500 mg PO TID Qty: 60 0RF calcium polycarbophil [FiberCon] 625 mg tablet 625 mg PO BID Qty: 60 5RF pantoprazole [Protonix] 40 mg tablet,delayed release (DR/EC) 40 mg PO BID 42 Days Qty: 84 1RF (DME) SHOULDER SLING See Rx Instructions .Route .MEDSUPPLY Qty: 1 0RF Rx Instructions: As directed lisinopril 20 mg tablet 20 mg PO DAILY Qty: 90 1RF hydrocodone-acetaminophen 5-325 mg tablet 1 - 2 tab PO .q4-6 PRN (Reason: pain) 5 Days Qty: 40 0RF chlorthalidone 25 mg tablet 25 mg PO DAILY ondansetron HCl 4 mg tablet 4 mg PO Q6H PRN (Reason: nausea and vomiting) Qty: 15 0RF Referrals: Stefani Schmitz PA [Primary Care Provider] - Coding Level of Care Code ED Financial Systems Director for Amanda Boone
--- NOTE | 2022-11-20 08:57 | DCPLANNER ---
Addendum entered by Erica Lindquist 11/25/22 13:49: Patient has a follow up appointment scheduled for Friday, February 03, 2023 at 8:[address] Mckeon at neurology. Original Note: government relations manager had message to schedule a follow up appointment for patient with neurology. government relations manager sent patients information to the front office staff at neurology. Patients information will be printed and reviewed. Clinic will call patient with appointment information.
== END 2022-11-19 19:40 | disposition home or self-care (01) ==
PROVIDERS: Emergency Provider Nurse Practitioner Family; PCP Physician Assistant
DX: M79.602 Pain in left arm (principal); I10 Essential (primary) hypertension; E11.9 Type 2 diabetes mellitus without complications; F17.210 Nicotine dependence, cigarettes, uncomplicated
CPT/HCPCS: 73080; 99283

== ENCOUNTER 2022-11-22 19:20 | Emergency (ER) | payer BC, MEDICAID, SELFPAY ==
[2022-11-22 19:33] VITALS: BP 148/110; PULSE 132; RESP 18; TEMP 37.3; O2SAT 96; BMI 29.9
--- NOTE | 2022-11-22 19:57 | XRR_ITS ---
PROCEDURE INFORMATION: Exam: XR Left Humerus Exam date and time: 11/22/2022 8:13 PM Age: 42 years old Clinical indication: Pain; Other: L humerus; Additional info: Previous frx, reinjury, pain TECHNIQUE: Imaging protocol: Radiologic exam of the left humerus. Views: Single-view. COMPARISON: [place] [id number] 10/07/2022 4:33 PM FINDINGS: Bones/joints: Fracture at mid shaft of humerus is again noted with moderate bony callus. No evident change in position or alignment on single view. No evident bony bridging. Soft tissues: Normal. XR/[place] [id number] IMPRESSION: No change in position or alignment humeral fracture fragments. Moderate bony callus noted.
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
[2022-11-22] MEDS: ketorolac 60 mg/2 mL INJ IM (20:20)
== END 2022-11-22 22:34 | disposition home or self-care (01) ==
PROVIDERS: Emergency Provider Physician Assistant; PCP Physician Assistant
DX: S42.392A Other fracture of shaft of left humerus, initial encounter for closed fracture (principal); X58.XXXA Exposure to other specified factors, initial encounter; I10 Essential (primary) hypertension; E11.9 Type 2 diabetes mellitus without complications; F17.210 Nicotine dependence, cigarettes, uncomplicated
CPT/HCPCS: 73060; 96372; 99284; J1885

== ENCOUNTER → 2022-12-10 09:11 | Outpatient (BNVA) | payer BC, MEDICAID, SELFPAY | PROVIDERS: PCP Physician Assistant; Visit Provider Orthopaedic Surgery | DX: S42.322A Displaced transverse fracture of shaft of humerus, left arm, initial encounter for closed fracture (principal); Y04.0XXA Assault by unarmed brawl or fight, initial encounter; Z01.818 Encounter for other preprocedural examination | CPT/HCPCS: 36415; 73060; 80053; 81003; 83036; 85025 ==

== ENCOUNTER 2022-12-11 05:57 | Day surgery (SDC) | payer BC, MEDICAID, SELFPAY ==
[2022-12-10 16:56] VITALS: BMI 29.9
[2022-12-11] VITALS (12 sets, daily range): BP systolic 160–219; BP diastolic 99–158; PULSE 93–107; RESP 15–21; TEMP 36.1–36.6; O2SAT 93–99
--- NOTE | 2022-12-11 | XR_ITS ---
WS: [id number] Left arm and humerus, 2 views, C ARM fluoroscopy views, 12/11/2022 Clinical Data: orif left humerus or pics Comparison: Left arm, 12/10/2022 Findings: Dr. Florez performed an internal fixation of the mid left humeral fracture with a plate and multiple s crews. Impression: Internal fixation of left mid humeral fracture.
--- NOTE | 2022-12-11 06:56 | P.ANESASSM_ITS ---
Pre-Anesthetic Assessment Height/Weight: Height 1.65 m Weight 81.647 kg O2 Del Method Room Air 12/11/22 06:13 Preop Diagnosis: Left midshaft humerus fracture Operation Date: 12/11/22 07:45 Proposed Procedures p ORIF Midshaft Humerus(Left) - Troy Florez DO Familial anesthetic complications: None Was Beta Jakub taken within 24 hours: N/A Was Clonidine taken within 24 hours: N/A Last intake: Intake Last Liquid Date 12/11/22 Last Liquid Time 04:45 Last Solid Date 12/10/22 Last Solid Time 21:00 Social Tobacco and No alcohol Exam alert, oriented x 3, clear to auscultation bilaterally and regular rate & rhythm Airway Mallampati: Class II Dentition: other (no teeth) CV/HEM Hypertension GI Gastroesophageal Reflux Disease Metabolic patient denied DM Neuropsych Anxiety and Depression cervical radiculopathy and numbness and tingling in Ulnar distribution of forearm Anesthetic Plan ASA status: 3 Anesthesia: General Risk of > 500 ml blood loss (7ml/kg in children): No Medications/Allergies Home Medications Medication Instructions Recorded Confirmed Last Taken Type lisinopril 20 mg tablet 20 mg PO DAILY #90 tabs 05/08/22 12/10/22 12/10/22 Rx chlorthalidone 25 mg tablet 25 mg PO DAILY 06/03/22 12/10/22 12/10/22 History venlafaxine 150 mg 150 mg PO DAILY 10/07/22 12/10/22 12/10/22 History capsule,extended release 24 hr (Effexor XR) Mcclellan brace #1 ea 10/10/22 12/10/22 Unknown Rx SHOULDER SLING #1 ea 11/05/22 12/10/22 Unknown Rx levocetirizine 5 mg tablet 5 mg PO BEDTIME 12/10/22 12/11/22 12/10/22 History trazodone 100 mg tablet 100 mg PO BEDTIME 12/10/22 12/11/22 12/10/22 History Allergies Allergy/AdvReac Type Severity Reaction Status Date / Time No Known Allergies Allergy Verified 12/10/22 09:15 [facility] Anesthesia Medical History Anxiety and depression Chronic GERD Dizziness Hemorrhoids without complication HTN (hypertension) Hx of fracture of nose had it set Marijuana dependence New onset type 2 diabetes mellitus HgA1C 04-10-2021 6.3 Smoker Quit 08/31/2021 Spondylolisthesis at L5-S1 level Stool incontinence Surgical History History of esophagogastroduodenoscopy (EGD) Social History Smoking and tobacco status: current every day smoker cigarettes Second hand smoke exposure: Yes Alcohol intake: current Alcohol intake frequency: few times a week Desire information about alcohol rehabilitation?: No Substance/Drug Use: current Substance/Drug use frequency: daily Marital status: Current occupational status: unemployed Data Anesthesia Cardiac Studies: No Data to Display
[2022-12-11] MEDS: sodium chloride 0.9% 1,000 ML 30 ML IV (07:02)
[2022-12-11] MEDS: fentaNYL 50 mcg/mL INJ 2mL IVP (07:03)
--- NOTE | 2022-12-11 07:49 | W.PM.OPSUD ---
Surgery/Procedure H&P Update DATE OF PROCEDURE: December 11, 2022 DATE H&P PERFORMED: 12/10/22 H&P UPDATE INFORMATION: I have reviewed H&P completed within last 30 days, I have examined patient prior to procedure and No changes to prior documentation PREOP DIAGNOSIS: Left midshaft humerus fracture PLANNED PROCEDURE: Operation Date: 12/11/22 07:45 Proposed Procedures p ORIF Midshaft Humerus(Left) - Troy Florez DO
[2022-12-11] MEDS: ceFAZolin 2,000 MG in sodium chloride 0.9% (plus) 50 ML 100 MG IV (08:05)
--- NOTE | 2022-12-11 09:25 | P.OP_ITS ---
Operative Report Date of procedure: December 11, 2022 Pre-op diagnosis: Left humerus delayed union Post-op diagnosis: same Procedure done: Open reduction internal fixation of left humerus delayed union Surgeon: Troy Florez DO Oil Treater: Isidro Cortes Oil Treater: The salesperson surgical appliances, Isidro Cortes, NAYLA was needed for his expertise with fracture care. He was important and necessary throughout the procedure to complete in a safe and timely manner. He assisted with patient positioning prepping and draping tissue retraction suctioning of the operative field protection of the critical structures and tissue closure Estimated blood loss (mL): 50 Procedure: Open reduction internal fixation of left humerus delayed union Patient was brought to the operative suite after undergoing anesthesia was placed in the supine position. All areas of pressure well-padded. Patient's left arm was prepped and draped normal sterile fashion. Skin incision was made over the anterior aspect of the arm. The biceps was reflected medially the brachialis was split down the middle. The callus was identified and dissected out the callus was then pulled back from the actual fracture. Once the fracture was identified was cleaned then an 8 hole [place] plate was placed. 3 screws were placed proximal to the fracture 3 screws distal to the fracture AP lateral fluoroscopy ensured the fracture was in good position and screws and hardware in good position. The callus was then placed back over the fracture. Wounds were irrigated and closed with Vicryl and laverne.
[2022-12-11] MEDS: HYDROmorphone 1 mg/mL INJ 1 mL 0.5 MG IVP (09:35)
--- NOTE | 2022-12-11 10:06 | ANES.PROC ---
Anesthesia Procedures Procedure/Date: 12/11/22 Nerve Block ^: Nerve Block 1: Main Anesthesia: general anesthesia Time Out Performed: Yes Consent: from patient, from other, risks and benefits reviewed and patient agrees to proceed Nerve block location: supraclavicular (R) Anesthesia monitors applied: pulse oximetry, EKG, BP cuff and oxygen Nerve block position: supine Anesthetic Used: ropivicaine 0.5% (30 ml) and with decadron (4 mg) Ultrasound used to: recognize landmarks, visualize and ID brachial plexus and in supraclavicular region Nerve Stimulator Used?: No Interscalene/Femoral BLK: 4 stimuplex 21 g needle used for position and inplane approach, visualize local anesthetic spread and no vascular puncture identified Injection: neg aspiration of heme Patient Tolerated Procedure: well and no complications Complications: none Additional Comments: Reiterated to patient again that he is at increased risk of nerve injury compared to baseline population d/t pre-existing cervical radiculopathy and 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 Still wished to proceed despite his unquantifiable increased risk of permanent nerve injury.
--- NOTE | 2022-12-11 10:55 | ANE.PACU2 ---
Inpatient post-anesthesia follow up: Airway intact: Yes Vital signs: Temperature 98 F Pulse Rate 103 Respiratory Rate 17 Blood Pressure 170/106 Pulse Oximetry 94 Oxygen Delivery Me thod Room Air Oxygen Flow Rate 6 Fraction of Inspir ed Oxygen Hydration adequate: Yes Nausea and vomiting: No Pain level: 1 Mental status: Baseline
== END 2022-12-11 10:55 | disposition home or self-care (01) ==
PROVIDERS: PCP Physician Assistant; Visit Provider Orthopaedic Surgery
PROC: (CPT 24515; principal; 2022-12-11 07:45)
DX: S42.302G Unspecified fracture of shaft of humerus, left arm, subsequent encounter for fracture with delayed healing (principal); X58.XXXD Exposure to other specified factors, subsequent encounter
CPT/HCPCS: 24430; 73060; 76000; C1713; J0690; J1100; J1170; J2405; J2704; J2795; J3010; J7030

== ENCOUNTER → 2022-12-26 10:02 | Outpatient (BNVA) | payer BC, MEDICAID, SELFPAY | PROVIDERS: PCP Physician Assistant; Visit Provider Orthopaedic Surgery | DX: Z47.89 Encounter for other orthopedic aftercare (principal); Z96.7 Presence of other bone and tendon implants | CPT/HCPCS: 73060 ==

== ENCOUNTER → 2023-01-23 10:22 | Outpatient (BNVA) | payer BC, MEDICAID, SELFPAY | PROVIDERS: PCP Physician Assistant; Visit Provider Orthopaedic Surgery | DX: S42.302D Unspecified fracture of shaft of humerus, left arm, subsequent encounter for fracture with routine healing (principal); X58.XXXD Exposure to other specified factors, subsequent encounter | CPT/HCPCS: 73060 ==

== ENCOUNTER → 2023-03-06 10:51 | Outpatient (BNVA) | payer BC, MEDICAID, SELFPAY | PROVIDERS: PCP Physician Assistant; Visit Provider Orthopaedic Surgery | DX: M79.602 Pain in left arm (principal); Z96.7 Presence of other bone and tendon implants | CPT/HCPCS: 73060 ==

== ENCOUNTER 2023-03-30 11:24 | Emergency (ER) | payer BC, MEDICAID, SELFPAY ==
--- NOTE | 2023-03-30 11:25 | XRR_ITS ---
PROCEDURE INFORMATION: Exam: XR Chest Exam date and time: 03/30/2023 11:53 AM Age: 42 years old Clinical indication: Cough TECHNIQUE: Imaging protocol: Radiologic exam of the chest. Views: 1 view. COMPARISON: CT angio chest w abd pel w con 10/06/2020 2:37 PM FINDINGS: Lungs: No significant active pathology. Pleural spaces: No pleural effusion or pneumothorax. Heart/Mediastinum: Unremarkable. Bones/joints: No significant pathology. XR/XR chest 1V portable [id number] IMPRESSION: No significant active disease.
[2023-03-30 11:30] VITALS: BP 127/89; PULSE 97; RESP 17; TEMP 37.5; O2SAT 98
--- NOTE | 2023-03-30 13:16 | W.ED.COVID ---
HPI - COVID General: Chief Complaint: COVID symptoms Stated Complaint: fever,cough,congestion Time Seen by Provider: 03/30/23 13:04 Source: patient Mode of arrival: ambulatory Limitations: no limitations History of Present Illness: 42-year-old male who states over the last 2 days has had cough congestion body aches low-grade fevers. He states his son has been sick with similar symptoms had some mild dyspnea he is in no distress here no vomiting no diarrhea no chest pain. COVID 19 common symptoms: positive fever(s), non-productive cough and body aches; negative chills, dyspnea, headache(s), throat pain, nausea, vomiting or diarrhea COVID 19 other sytmptoms: negative chest pain COVID Results: SARS-CoV-2 Antigen (Rapid) positive (Negative) H 03/30/23 13:33 SARS-CoV-2 RNA (RT-PCR) Not detected (NOT DETECTED) 10/13/20 10:53 Review of Systems Const: Reports: fever(s) and body aches; Denies: chills or change in appetite ENMT: Denies: throat pain or dental pain Card: Denies: chest pain Resp: Reports: non-productive cough; Denies: dyspnea GI: Denies: abdominal pain, nausea, vomiting or diarrhea : Denies: dysuria Musc: Denies: neck pain or back pain Skin/Breast: Denies: rash Neuro: Denies: headache(s) PFSH ED PFSH: Medical History Hx of fracture of nose had it set Stool incontinence Hemorrhoids without complication Marijuana dependence Dizziness Chronic GERD New onset type 2 diabetes mellitus HgA1C 04-10-2021 6.3 Smoker Quit 08/31/2021 Spondylolisthesis at L5-S1 level Anxiety and depression HTN (hypertension) Surgical History History of esophagogastroduodenoscopy (EGD) Social History Smoking and tobacco/nicotine status: current every day tobacco/nicotine user cigarettes Second hand smoke exposure: Yes Alcohol intake: current Alcohol intake frequency: few times a week Substance/Drug Use: current Substance/Drug use frequency: daily Marital status: Current occupational status: unemployed Physical Exam Const: COMMON NORMALS: no acute distress, patient oriented x3 and healthy appearing HENMT: COMMON NORMALS: normocephalic and atraumatic HEAD & SCALP: normocephalic and atraumatic Eye: COMMON NORMALS: conjunctivae normal CONJUNCTIVA: Yes conjunctivae normal Neck/C-Spine: COMMON NORMALS: full ROM and supple Chest: COMMONS NORMALS: normal inspection of the chest and normal palpation of entire chest wall Resp: COMMON NORMALS: normal respiratory effort, No retractions, No use of accessory muscles and clear to auscultation bilaterally AUSCULTATION: clear to auscultation bilaterally Cardio: COMMON NORMALS: regular rate, regular rhythm and No murmurs present (Cardio) RATE: regular rate RHYTHM: regular rhythm Extremity: COMMON NORMALS: normal to inspection and full ROM Neuro: COMMON NORMALS: patient oriented x3, moves all extremities and no focal motor deficits Psych: COMMON NORMALS: mental status grossly normal, Normal thought process present and cooperative THOUGHT PROCESS: Normal thought process present Skin: COMMON NORMALS: no rashes or lesions noted and no wounds GENERAL SKIN EXAM: no rashes or lesions noted Course Vital Signs: Vital signs: Vital Signs Temperature 99.5 F 03/30/23 11:30 Pulse Rate 97 03/30/23 11:30 Respiratory Rate 17 03/30/23 11:30 Blood Pressure 127/89 03/30/23 11:30 Pulse Oximetry 98 03/30/23 13:34 Oxygen Delivery Me thod Room Air 03/30/23 13:34 MDM - COVID Medical Decision Making Patient presents here with cough congestion he is COVID-positive we will prescribe him Paxil bid he is well-appearing here in no distress follow-up with PCP return if worsening he understands agrees to plan. Lab Data I reviewed the patient's lab results. Radiology Impressions Chest X-Ray 03/30/23 11:25 IMPRESSION: No significant active disease. Laboratory Results Influenza Type A Ag negative (Negative) 03/30/23 13:33 Influenza Type B Ag negative (Negative) 03/30/23 13:33 SARS-CoV-2 Ag (Rapid) positive (Negative) H 03/30/23 13:33 SARS-CoV-2 Antigen (Rapid) positive (Negative) H 03/30/23 13:33 SARS-CoV-2 RNA (RT-PCR) Not detected (NOT DETECTED) 10/13/20 10:53 All radiology interpretation(s) finalized by discharge Discharge Plan Discharge Patient Disposition: Home Clinical Impression: COVID-19 Condition: Stable Prescriptions: New Paxlovid 300 mg (150 mg x 2)-100 mg tablets,dose pack See Rx Instructions .ROUTE .COMPLEX Qty: 30 0RF Rx Instructions: take TWO 150 mg tablets of nirmatrelvir with ONE 100 mg tablet of ritonavir twice daily for 5 days No Action venlafaxine [Effexor XR] 150 mg capsule,extended release 24hr 150 mg PO DAILY acetaminophen [Tylenol Extra Strength] 500 mg tablet 500 mg PO Q6H PRN (Reason: pain) Qty: 30 0RF lisinopril 20 mg tablet 20 mg PO DAILY Qty: 90 1RF trazodone 100 mg Tablet 100 mg PO BEDTIME levocetirizine 5 mg Tablet 5 mg PO BEDTIME Discharge Orders: Discharge ED (Routine); Ordered 03/30/23 Ordered By: Flaquita Garcia Referrals: Stefani Schmitz PA [Primary Care Provider] - 1-3 days Discharge Diet: Advance as tolerated Discharge Activity: Resume usual activity Patient Instructions: COVID-19 (Coronavirus Disease 2019) (ED) Coding Level of Care Code ED Director Of Services for Amanda Boone
[2023-03-30 13:34] VITALS: O2SAT 98
[2023-03-30] MEDS: dexamethasone 10 mg/mL INJ IM (13:34)
[2023-03-30 14:02] LABS: Influenza A by IFA negative (Negative); Influenza B by IFA negative (Negative)
[2023-03-30 14:15] LABS: SARS Covid-2 Antigen positive (Negative)
[2023-03-30 14:42] VITALS: O2SAT 98
== END 2023-03-30 14:44 | disposition home or self-care (01) ==
PROVIDERS: Emergency Provider Emergency Medicine; PCP Physician Assistant
DX: U07.1 COVID-19 (principal); E11.9 Type 2 diabetes mellitus without complications; I10 Essential (primary) hypertension; F17.210 Nicotine dependence, cigarettes, uncomplicated
CPT/HCPCS: 71045; 87426; 87804; 96372; 99284; J1100

== ENCOUNTER 2023-04-29 12:47 | Outpatient (CLI) | payer BC, MEDICAID, SELFPAY ==
--- NOTE | 2023-04-29 | MR_ITS ---
WS: [id number] MRI LEFT SHOULDER HISTORY: M25.512 - Pain in left shoulder COMPARISON: None available. TECHNIQUE: Multiplanar sequences of the shoulder joint are submitted. There is minimal AC joint arthritis. No impingement upon the supraspinatus. Normal position of the bi ceps tendon. No os acromion. No muscle atrophy or edema. There is increased T2 signal in the very distal supraspinatus tendon but no retraction. There is a very tiny, 2 mm tear involving the articular surface of the distal supraspi natus tendon. No retraction. Normal subscapularis tendon. No infraspinatus tear. No labral tear. Norm al coracohumeral ligament. IMPRESSION: 1. Moderate tendinopathy distal supraspinatus tendon with an additional partial 2 mm articular surfa ce tendon tear. 2. No labral tear. 3. No muscle atrophy or edema.
== END 2023-04-29 12:48 | disposition home or self-care (01) ==
LOC: RAD 12:47
PROVIDERS: PCP Physician Assistant; Visit Provider Nurse Practitioner
DX: M75.102 Unspecified rotator cuff tear or rupture of left shoulder, not specified as traumatic (principal); M25.512 Pain in left shoulder
CPT/HCPCS: 73221

== ENCOUNTER 2023-05-01 15:28 | Emergency (ER) | payer BC, MEDICAID, SELFPAY ==
[2023-05-01 15:34] VITALS: BP 175/102; PULSE 89; RESP 15; TEMP 36.7; O2SAT 96
[2023-05-01 15:50] VITALS: BP 160/93; PULSE 89; RESP 14; O2SAT 94
--- NOTE | 2023-05-01 15:55 | XR_ITS ---
WS: [id number] XR cervical spine 3V* [id number] REASON FOR EXAM: fall injury FINDINGS: Mild straightening of the normal lordosis of the cervical spine. No vertebral body abnormality. Normal odontoid. Mild narrowing of the disc spaces C5-C6 and C6-C7 with associated anterior and uncinate osteophytes. There is normal vertebral body alignment. There is normal facet joint alignment IMPRESSION: No acute cervical spine abnormality. Moderate degenerative spondylosis.
--- NOTE | 2023-05-01 15:55 | XR_ITS ---
WS: [id number] XR thoracic spine 3V* [id number] REASON FOR EXAM: fall injury FINDINGS: Mild thoracic scoliosis convex left. No thoracic vertebral body abnormality. Mild changes of degenerative spondylosis in the mid and lower thoracic spine. IMPRESSION: No acute abnormality. Mild degenerative spondylosis.
--- NOTE | 2023-05-01 15:55 | XR_ITS ---
WS: [id number] XR shoulder LT min 2V* [id number] REASON FOR EXAM: fall injury FINDINGS: The clavicle is intact. No fracture of the proximal humerus. Scapula is unremarkable. Previous fracture of the midshaft of the left humerus with plate and screw fixation. Abundant callus formation. Surgical appliances and the fracture site are unchanged compared to 03/06/2023. The acromioclavicular joint is intact. IMPRESSION: No acute abnormality. Old healed fracture of the mid left humerus.
--- NOTE | 2023-05-01 15:56 | W.ED.NECK ---
HPI - Neck Pain/Injury General: Chief Complaint: Neck Pain/Injury Stated Complaint: neck and back pain Time Seen by Provider: 05/01/23 15:46 History of Present Illness: 43-year-old male patient comes in today for complaints of injuries secondary to a fall on ice 3 days ago. Patient appears nontoxic. Patient reports neck pain, mid back pain, and left shoulder pain. Review of Systems General: Reports: 10 or more systems reviewed and unremarkable except in HPI and below Musc: Reports: neck pain, back pain and extremity pain PFSH ED PFSH: Medical History (Updated 05/01/23 @ 17:05 by ZEHRA Yun) Left anterior shoulder pain Hx of fracture of nose had it set Stool incontinence Hemorrhoids without complication Marijuana dependence Dizziness Chronic GERD New onset type 2 diabetes mellitus HgA1C 04-10-2021 6.3 Smoker Quit 08/31/2021 Spondylolisthesis at L5-S1 level Anxiety and depression HTN (hypertension) Surgical History History of esophagogastroduodenoscopy (EGD) Social History Smoking and tobacco/nicotine status: current every day tobacco/nicotine user cigarettes Second hand smoke exposure: Yes Alcohol intake: current Alcohol intake frequency: few times a week Substance/Drug Use: current Substance/Drug use frequency: daily Marital status: Current occupational status: unemployed Physical Exam Const: COMMON NORMALS: alert HENMT: COMMON NORMALS: normocephalic HEAD & SCALP: normocephalic Neck/C-Spine: CERVICAL SPINE: No Cervical spine tenderness and Yes Paracervical muscle tenderness Resp: COMMON NORMALS: normal respiratory effort and clear to auscultation bilaterally AUSCULTATION: clear to auscultation bilaterally Cardio: COMMON NORMALS: regular rate and regular rhythm RATE: regular rate RHYTHM: regular rhythm GI: COMMON NORMALS: non-tender Back/Pelvis: THORACIC SPINE/UPPER BACK: No thoracic spinal tenderness and Yes paraspinal muscle tenderness LUMBAR SPINE/LOWER BACK: No lumbar spinal tenderness and No paraspinal muscle tenderness Extremity: LEFT UPPER EXTREMITY: Yes shoulder joint (Posterior shoulder muscle tenderness) Left shoulder joint: Yes inspection, Yes palpation, Yes ROM and Yes neurovascular exam Neuro: SENSORIUM/ORIENTATION: Yes alert Skin: COMMON NORMALS: turgor normal GENERAL SKIN EXAM: turgor normal Course Vital Signs: Vital signs: Vital Signs Temperature 98.1 F 05/01/23 15:34 Pulse Rate 80 05/01/23 17:11 Respiratory Rate 14 05/01/23 15:50 Blood Pressure 151/98 05/01/23 17:11 Pulse Oximetry 94 05/01/23 17:11 Oxygen Delivery Me thod Room Air 05/01/23 15:50 MDM - Neck Pain/Injury Medical Decision Making 43-year-old male patient comes in today for injury sustained from a slip and fall 3 days ago. On exam patient has tenderness in the paracervical muscles of the neck and mid back. Patient also has some trapezius muscle tenderness of the left shoulder. Decreased range of motion due to pain. No crepitus is noted in the shoulder. No drop-off is noted in the shoulder. No spinal tenderness is noted on palpation. Vital signs are normal. Differential diagnosis includes contusion, sprain, intervertebral disc disease, fracture. X-rays of neck, thoracic spine, and left shoulder noted no acute fractures. Patient has some degenerative changes of his neck and thoracic spine. Recommend patient follow-up with primary care for further evaluation and treatment. Patient was written for diclofenac and tizanidine. Patient reported understanding of care plan need for follow-up or return to the ER. All radiology interpretation(s) finalized by discharge Discharge Plan Discharge Patient Disposition: Home Clinical Impression: Fall from slipping on ice Qualifiers: Encounter type: initial encounter Qualified Code(s): W00.9XXA - Unspecified fall due to ice and snow, initial encounter Condition: Stable Prescriptions: New tizanidine 4 mg capsule 4 mg PO Q8H PRN (Reason: muscle spasticity) Qty: 10 0RF diclofenac sodium 75 mg tablet,delayed release (DR/EC) 75 mg PO BID Qty: 20 0RF No Action venlafaxine [Effexor XR] 150 mg capsule,extended release 24hr 150 mg PO DAILY azithromycin 250 mg tablet See Rx Instructions PO .COMPLEX Qty: 6 0RF Rx Instructions: take 500 mg today (day 1), then 250 mg for 4 days (days 2-5) PO prednisone 20 mg tablet 20 mg PO BID 5 Days Qty: 10 0RF albuterol sulfate [Ventolin HFA] 90 mcg/actuation HFA aerosol inhaler 2 puff inhalation Q6H PRN (Reason: shortness of breath or wheezing) Qty: 8.5 0RF benzonatate 100 mg capsule 100 mg PO BID PRN (Reason: cough) Qty: 14 0RF acetaminophen [Tylenol Extra Strength] 500 mg tablet 500 mg PO Q6H PRN (Reason: pain) Qty: 30 0RF lisinopril 20 mg tablet 20 mg PO DAILY Qty: 90 1RF trazodone 100 mg Tablet 100 mg PO BEDTIME levocetirizine 5 mg Tablet 5 mg PO BEDTIME Paxlovid 300 mg (150 mg x 2)-100 mg tablets,dose pack See Rx Instructions .ROUTE .COMPLEX Qty: 30 0RF Rx Instructions: take TWO 150 mg tablets of nirmatrelvir with ONE 100 mg tablet of ritonavir twice daily for 5 days Discharge Orders: Discharge ED (Routine); Ordered 05/01/23 Ordered By: Mynor Muñiz Referrals: Stefani Schmitz PA [Primary Care Provider] - Discharge Diet: Usual diet Discharge Activity: Increase activity as tolerated Patient Instructions: Musculoskeletal Pain (ED) Activity Restrictions/Additional Instructions: Activity as tolerated. Gentle stretching and range of motion exercises. Ice or heat to the area to help with pain. Use Tylenol routinely as needed for pain. Use diclofenac 75 mg 1 tablet twice a day for pain and inflammation. Use tizanidine as needed for muscle spasms. Follow-up with primary care in 1 week for recheck. Return to ED for new concerns. Coding Level of Care Code ED Affiliate Marketing Specialist for Amanda Boone
[2023-05-01] MEDS: HYDROcodone-acetaminophen 7.5-325 mg Tablet 1 TAB PO (16:02)
[2023-05-01] MEDS: ketorolac 30 mg/mL INJ IM (16:04)
[2023-05-01 17:11] VITALS: BP 151/98; PULSE 80; O2SAT 94
== END 2023-05-01 17:13 | disposition home or self-care (01) ==
PROVIDERS: Emergency Provider Nurse Practitioner Family; PCP Physician Assistant
DX: M54.2 Cervicalgia (principal); F17.210 Nicotine dependence, cigarettes, uncomplicated; I10 Essential (primary) hypertension; W00.0XXA Fall on same level due to ice and snow, initial encounter
CPT/HCPCS: 72040; 72072; 73030; 96372; 99284; J1885

== ENCOUNTER 2023-08-20 10:36 | Day surgery (SDC) | payer BC, MEDICAID, SELFPAY ==
[2023-08-20] VITALS (11 sets, daily range): BP systolic 114–184; BP diastolic 86–119; PULSE 74–107; RESP 13–23; TEMP 36.6–37.2; O2SAT 91–99; BMI 31.6
[2023-08-20] MEDS: sodium chloride 0.9% 1,000 ML 30 ML IV (11:21)
[2023-08-20] MEDS: albuterol 2.5 mg/3 mL Neb INHALATION (11:25)
--- NOTE | 2023-08-20 11:33 | ANES.PREANE2 ---
Pre-Anesthetic Assessment Height/Weight: Height 1.65 m Weight 86.183 kg Temp Pulse Resp BP Pulse Ox O2 Del Method 98.9 F 96 18 114/86 97 Room Air 08/20/23 10:58 08/20/23 10:58 08/20/23 10:58 08/20/23 10:58 08/20/23 10:58 08/20/23 11:00 Preop Diagnosis: Hypertrophic elongated thickened uvula/chronic cough and clearing Operation Date: 08/20/23 12:10 Proposed Procedures p Uvulectomy(Not Applicable) - Vj Avila MD Familial anesthetic complications: none Was Beta Jakub taken within 24 hours: N/A Was Clonidine taken within 24 hours: N/A Last intake: Intake Last Liquid Date 08/19/23 Last Liquid Time 21:00 Last Solid Date 08/19/23 Last Solid Time 20:00 Social Tobacco and No alcohol Exam alert, oriented x 3 and regular rate & rhythm Airway Submandibular: within normal limits Cervical ROM: within normal limits Mallampati: Class II Dentition: false Pulmonary Chronic Obstructive Pulmonary Disease CV/HEM Hypertension GI Gastroesophageal Reflux Disease Musc/skel Lower Back Pain chronic pain/opioid Neuropsych Anxiety, Depression and Neuropathy Anesthetic Plan ASA status: 3 Anesthesia: General Medications/Allergies Home Medications Medication Instructions Recorded Confirmed Last Taken Type lisinopril 20 mg tablet 20 mg PO DAILY #90 tabs 05/08/22 08/19/23 08/19/23 Rx trazodone 100 mg tablet 75 mg PO BEDTIME 12/10/22 08/19/23 08/19/23 History albuterol sulfate 90 mcg/actuation 2 puff inhalation Q6H PRN 04/01/23 08/19/23 Unknown Rx aerosol inhaler (Ventolin HFA) shortness of breath or wheezing #8.5 grams chlorthalidone 25 mg tablet 25 mg PO DAILY 08/05/23 08/19/23 08/19/23 History hydrocodone 5 mg-acetaminophen 325 1 tab PO 3XD PRN Pain 08/05/23 08/20/23 08/20/23 History mg tablet venlafaxine 75 mg capsule,extended 75 mg PO DAILY 08/05/23 08/20/23 08/20/23 History release 24 hr Allergies Allergy/AdvReac Type Severity Reaction Status Date / Time No Known Allergies Allergy Verified 08/19/23 13:49 Current Medications Generic Name Dose Route Start Last Admin Trade Name Kamran PRN Reason Stop Dose Admin Sodium Chloride 1,000 mls @ 30 mls/hr 08/20/23 10:45 08/20/23 11:21 Sodium Chloride 0.9% IV 08/21/23 10:44 30 mls/hr .Q24H JAZZY Administration PFSH Anesthesia Medical History Tendinopathy of left rotator cuff Osteoarthritis of left shoulder Left anterior shoulder pain Hx of fracture of nose had it set Stool incontinence Hemorrhoids without complication Marijuana dependence Dizziness Chronic GERD New onset type 2 diabetes mellitus HgA1C 04-10-2021 6.3 Smoker Quit 08/31/2021 Spondylolisthesis at L5-S1 level Anxiety and depression HTN (hypertension) Surgical History History of esophagogastroduodenoscopy (EGD) Social History Smoking and tobacco/nicotine status: current every day tobacco/nicotine user cigarettes Second hand smoke exposure: Yes Alcohol intake: current Alcohol intake frequency: few times a week Substance/Drug Use: current Substance/Drug use frequency: daily Marital status: Current occupational status: unemployed Data Anesthesia Cardiac Studies: No Data to Display
--- NOTE | 2023-08-20 12:00 | W.PM.OPSUD ---
Surgery/Procedure H&P Update DATE OF PROCEDURE: August 20, 2023 DATE H&P PERFORMED: 08/05/23 H&P UPDATE INFORMATION: I have reviewed H&P completed within last 30 days, I have examined patient prior to procedure and No changes to prior documentation CHANGES TO PREVIOUS DOCUMENTATION: No Changes PREOP DIAGNOSIS: Hypertrophic elongated thickened uvula/chronic cough and clearing PRIMARY INDICATION FOR PROCEDURE: Hypertrophic elongated thickened uvula with chronic cough and clearing of throat PLANNED PROCEDURE: Operation Date: 08/20/23 12:10 Proposed Procedures p Uvulectomy(Not Applicable) - Vj Avila MD
[2023-08-20] MEDS: ceFAZolin 2,000 MG in sodium chloride 0.9% (plus) 50 ML 100 MG IV (12:06)
[2023-08-20] MEDS: lidocaine-epi 2% 1.7mL Cartridge (OR Only) 1.69999999999999996 ML XX (12:40)
--- NOTE | 2023-08-20 12:46 | PM.OP ---
Operative Report Date of procedure: August 20, 2023 Pre-op diagnosis: Hypertrophic elongated uvula Post-op diagnosis: Same Post-op findings: Uvula absent Procedure done: Uvulectomy with repair Implants: No implants Specimens removed/disposition: Uvula Pathology: Uvula for permanent section only Surgeon: Vj Avila MD Anesthesia: General and Local Estimated blood loss: 5 mL Complications: No complications encountered Findings: Patient with extreme hypertrophic elongated thickened uvula that hangs well below the base of tongue onto the epiglottis. Causing constant clearing and coughing. Brief History: 43-year-old male patient who has had a problem with chronic clearing and coughing and constant globus sensation in the throat. This caused by an extremely elongated thickened hypertrophic uvula. This hangs well below the base of tongue and onto the epiglottis. It is very flaccid. As result the patient is being brought to the operating room to undergo uvulectomy to remedy this problem. The procedure its risks and complications were explained in detail. The risks include bleeding and infection and numbness and scarring and swelling and bruising and persistent of symptoms as well as more serious risk such as heart attack or stroke or not surviving the surgery. With these things understood informed consent was granted and witnessed. Procedure: Description of procedure: The patient was placed on the operating table in the supine position. Adequate general endotracheal tube anesthesia was obtained. The table was rotated 90 degrees. His eyes were taped shut. I had drape was applied in usual fashion. His head was dropped 15 degrees to the horizontal. A timeout was accomplished identifying the patient and date of and planned procedure and fire risk and medications given as well as allergies. With all these things understood and in agreement the procedure continued. A Dk Marlon mouthgag was inserted over the endotracheal tube and tongue ensuring that the upper gingiva was in the guard. This was then opened and suspended from a rolled towel placed on his chest. The base of the uvula was infiltrated with 1.7 mL of 2% Xylocaine with 1-100,000 epinephrine. Several minutes were then allowed to pass. Suctioning was accomplished. A DeBakey forcep held the distal aspect of the uvula and the Coblator on ablation and coagulation modes was used to incise superiorly on the soft palate and then down through the musculature of the uvula. The mucosa from the posterior aspect of the uvula was partially retained. The specimen was removed and forwarded to the pathologist for permanent section only. After obtaining hemostasis with the coagulation mode of the Coblator interrupted 3-0 Vicryl suture on a taper needle was used to close the posterior mucosa to the soft palate mucosa to cover the raw musculature. This was done with 6 sutures. No bleeding was encountered. The area was irrigated with saline and suctioned clean. Then the mouthgag was released and removed. His head was returned to the upright position. Head drape and tape were removed. Face was cleansed. Throat was suctioned again with no sign of bleeding. At this point the patient was returned to the anesthesiologist for wake-up and extubation. The patient tolerated the procedure well had an estimated blood loss of 5 mL and arrived in recovery in stable condition.
[2023-08-20] MEDS: metoprolol tartrate 1 mg/1 mL SDV 5 mL 5 MG IVP (13:07)
--- NOTE | 2023-08-20 14:51 | ANE.PACU2 ---
Inpatient post-anesthesia follow up: Airway intact: Yes Vital signs: Temperature 98 F Pulse Rate 74 Respiratory Rate 16 Blood Pressure 142/92 Pulse Oximetry 94 Oxygen Delivery Me thod Room Air Oxygen Flow Rate 8 Fraction of Inspir ed Oxygen Hydration adequate: Yes Nausea and vomiting: No Pain level: 2 Mental status: Baseline
== END 2023-08-20 14:05 | disposition home or self-care (01) ==
PROVIDERS: PCP Physician Assistant; Visit Provider Otolaryngology
PROC: (CPT 42140; principal; 2023-08-20 12:00)
DX: K13.79 Other lesions of oral mucosa (principal)
CPT/HCPCS: 42140; 88305; J0330; J0690; J1100; J2250; J2405; J2704; J2710; J3010; J3490; J7030; J7613

== ENCOUNTER 2023-08-28 19:48 | Emergency (ER) | payer BC, MEDICAID, SELFPAY ==
[2023-08-28 19:51] VITALS: BP 138/92; PULSE 123; RESP 17; TEMP 36.4; O2SAT 93
[2023-08-28 20:41] LABS: Basophils # 0.1 10^3/uL (0.0-0.1); Basophils % 0.5 %; Eosinophils # 0.3 10^3/uL (0.0-0.8); Eosinophils % 2.1 %; Hematocrit 41.3 % (37-53); Lymphocytes # 4.5 10^3/uL (0.8-4.8); Lymphocytes % 30.6 %; Mean Corpuscular HGB Conc 34.9 g/dL (30-55); Mean Corpuscular Hemoglobin 32.3 pg (27-33); Mean Corpuscular Volume 92.6 fl (82-101); Mean Platelet Volume 10.7 fL (7.4-10.4); Monocytes # 1.1 10^3/uL (0.2-0.9); Monocytes % 7.7 %; Neutrophils % 58.6 %; Nucleated Red Blood Cells % 0 %; Platelet Count 283 10^3/cmm (157-399); Red Blood Count 4.46 10^6/uL (3.85-5.65); Red Cell Distribution Width 13.4 % (12.1-15.1); White Blood Count 14.69 10^3/uL (3.29-11.43)
--- NOTE | 2023-08-28 20:55 | ED_ITS ---
HPI - Dental/Oral 2 General: Chief complaint: Dental/Oral Stated complaint: Spitting up blood Time Seen by Provider: 08/28/23 20:48 History of Present Illness: Patient presents to the ER today for possible spitting up blood, patient uvulectomy by Dr. Avila. He saw Dr. Avila today as a postop everything was going good and then he went home instead of little bit of blood so his wanted him to come here and have the sutures rechecked because he thinks he may have broke 1. Patient is not actively spitting up blood bleeding at this time. Review of Systems 2 General: Reports: 10 or more systems reviewed and unremarkable except in HPI and below PFSH ED 2 PFSH: Medical History Tendinopathy of left rotator cuff Osteoarthritis of left shoulder Left anterior shoulder pain Hx of fracture of nose had it set Stool incontinence Hemorrhoids without complication Marijuana dependence Dizziness Chronic GERD New onset type 2 diabetes mellitus HgA1C 04-10-2021 6.3 Smoker Quit 08/31/2021 Spondylolisthesis at L5-S1 level Anxiety and depression HTN (hypertension) Surgical History History of uvulectomy History of esophagogastroduodenoscopy (EGD) Social History Smoking and tobacco/nicotine status: current every day tobacco/nicotine user cigarettes Second hand smoke exposure: Yes Alcohol intake: current Alcohol intake frequency: few times a week Substance/Drug Use: current Substance/Drug use frequency: daily Marital status: Current occupational status: unemployed Physical Exam 2 HENMT: COMMON NORMALS: normocephalic, atraumatic, hearing grossly normal bilaterally, external ears normal, Normal external nose present and moist oral mucous membranes; oropharynx not normal (Normal postop changes with suture intact, no bleeding noted) HEAD & SCALP: normocephalic and atraumatic NOSE: Normal external nose present EXTERNAL EAR: Yes external ears normal Neck/C-Spine: COMMON NORMALS: full ROM, no lymphadenopathy, supple, no meningeal signs and no JVD Chest: COMMONS NORMALS: normal inspection of the chest and normal palpation of entire chest wall Resp: COMMON NORMALS: normal respiratory effort, No retractions, No use of accessory muscles and clear to auscultation bilaterally AUSCULTATION: clear to auscultation bilaterally Cardio: COMMON NORMALS: no JVD, regular rate, regular rhythm, S1 normal heart sound present, S2 normal heart sound present, No gallops present (Cardio), No clicks present (Cardio), No murmurs present (Cardio) and No rub (Cardio) R ATE: regular rate RHYTHM: regular rhythm HEART SOUNDS: S1 normal heart sound present and S2 normal heart sound present Neuro: MENINGEAL SIGNS: Yes no meningeal signs Course 2 Vital Signs: Vital signs: Vital Signs Temperature 97.6 F 08/28/23 19:51 Pulse Rate 123 H 08/28/23 19:51 Respiratory Rate 17 08/28/23 19:51 Blood Pressure 138/92 08/28/23 19:51 Pulse Oximetry 93 08/28/23 19:51 Oxygen Delivery Me thod Room Air 08/28/23 19:51 MDM - Dental/Oral Medical Decision Making Physical exam was normal postop with no bleeding noted. Patient be discharged in told to follow back up with Dr. Avila for his next scheduled appointment Medical Records I reviewed the patient's medical records. Lab Data I reviewed the patient's lab results. 08/28/23 20:34 08/28/23 20:34 No radiology studies performed this visit Discharge Plan Discharge Patient Disposition: Home Clinical Impression: Postoperative bleeding from mouth Condition: Stable Prescriptions: No Action albuterol sulfate [Ventolin HFA] 90 mcg/actuation HFA aerosol inhaler 2 puff inhalation Q6H PRN (Reason: shortness of breath or wheezing) Qty: 8.5 0RF venlafaxine 75 mg capsule,extended release 24hr 75 mg PO DAILY hydrocodone-acetaminophen 5-325 mg tablet 1 tab PO 3XD PRN (Reason: Pain) chlorthalidone 25 mg tablet 25 mg PO DAILY lisinopril 20 mg tablet 20 mg PO DAILY Qty: 90 1RF trazodone 100 mg Tablet 75 mg PO BEDTIME tramadol 50 mg tablet 50 mg PO Q6H PRN (Reason: pain) Qty: 30 0RF Discharge Orders: Discharge ED (Routine); Ordered 08/28/23 Ordered By: Sandeep Small Referrals: Stefani Schmitz PA [Primary Care Provider] - 1 week Patient Instructions: Postoperative Bleeding (ED) Activity Restrictions/Additional Instructions: Your physical exam was normal for postoperative findings. There is no bleeding noted. Your sutures appear to be intact. Please keep your next scheduled appointment with Dr. Avila. If symptoms worsen or return please feel free to return to the ER. Coding Level of Care Code ED Machine Tank Operator for Amanda Boone
[2023-08-28 20:58] LABS: Albumin Level 4.4 g/dL (3.5-5.2); Alkaline Phosphatase 69 U/L (40-130); Anion Gap 17.1 (5-19); Blood Urea Nitrogen 19 mg/dL (6-20); Calcium 8.9 mg/dL (8.5-10.5); Carbon Dioxide 26 mmol/L (22-29); Chloride 98 mmol/L (98-107); Creatinine Clr Calc Pharmacy 118.9553; Globulin 3.2 g/dL (1.3-4.6); Glucose 120 mg/dL (65-115); Osmolality Calculated 287 mOsm/kg (285-295); Potassium 4.1 mmol/L (3.5-5.1); Sodium 137 mmol/L (136-145); Total Bilirubin 0.2 mg/dL (0.15-1.2); Total Protein 7.6 g/dL (6.6-8.7)
[2023-08-28 21:11] LABS: Alanine Aminotransferase < 5 U/L (0-41); Aspartate Amino Transferase 5 U/L (0-40)
[2023-08-28 21:21] LABS: Slide Review Slide Review Perform
== END 2023-08-28 21:04 | disposition home or self-care (01) ==
PROVIDERS: Emergency Medicine; Emergency Provider Emergency Medicine; PCP Physician Assistant
DX: K91.840 Postprocedural hemorrhage of a digestive system organ or structure following a digestive system procedure (principal); E11.9 Type 2 diabetes mellitus without complications; I10 Essential (primary) hypertension; F17.210 Nicotine dependence, cigarettes, uncomplicated
CPT/HCPCS: 36415; 80053; 85025; 99283

== ENCOUNTER 2023-09-09 15:00 | Outpatient (CLI) | payer BC, MEDICAID, SELFPAY | END 2023-09-09 15:01 | disposition home or self-care (01) | LOC: SLEEP 15:12 | PROVIDERS: PCP Physician Assistant; Visit Provider Physician Assistant | DX: G47.10 Hypersomnia, unspecified (principal); R40.0 Somnolence | CPT/HCPCS: G0399 ==

== ENCOUNTER → 2023-10-06 06:50 | Outpatient (BNVA) | payer BC, MEDICAID, SELFPAY | PROVIDERS: PCP Physician Assistant; Visit Provider Podiatrist Foot & Ankle Surgery | DX: M21.621 Bunionette of right foot; M21.622 Bunionette of left foot; M77.52 Other enthesopathy of left foot and ankle | CPT/HCPCS: 73630 ==

== ENCOUNTER 2023-11-30 20:30 | Inpatient (IN) | payer BC, SELFPAY ==
[2023-11-30 20:34] VITALS: BP 178/98; PULSE 110; RESP 18; TEMP 36.7; O2SAT 97; BMI 29.9
[2023-11-30] MEDS: ziprasidone 20 mg/mL SDV IM (20:56)
[2023-11-30] MEDS: LORazepam 2 mg/mL INJ 1 mL IM (20:56)
--- NOTE | 2023-11-30 21:00 | ED.C_ITS ---
Documented by User: Linda Gurrola MD 11/30/23 21:02 HPI - Psych 2 General: Chief Complaint: Psychiatric Symptoms Stated Complaint: SI/HI Time Seen by Provider: 11/30/23 20:34 History of Present Illness: 43-year-old male who presents emergency room with police. Apparently he had called 911 and said he had a gun and he was going to kill himself and that if anyone showed up he might kill them 2. Upon arrival there was a brief standoff and he finally turned himself over to the police. He has been very belligerent and yelling and is extremely intoxicated. Ultimately had to be restrained here in the emergency room. He required multiple police officers. Related Data Home Medications Medication Instructions Recorded Confirmed trazodone 100 mg tablet 75 mg PO BEDTIME 12/10/22 12/01/23 chlorthalidone 25 mg tablet 25 mg PO DAILY 08/05/23 12/01/23 hydrocodone 5 mg-acetaminophen 325 1 tab PO 3XD PRN Pain 08/05/23 12/01/23 mg tablet cetirizine 10 mg tablet 10 mg PO DAILY 12/01/23 12/01/23 ipratropium 20 mcg-albuterol 100 2 puff inhalation QID 12/01/23 12/01/23 mcg/actuation mist for inhalation (Combivent Respimat) Previous Rx's Medication Instructions Recorded lisinopril 20 mg tablet 20 mg PO DAILY #90 tabs 05/08/22 duloxetine 30 mg capsule,delayed 30 mg PO DAILY 30 days #30 caps 12/03/23 release venlafaxine 37.5 mg 37.5 mg PO DAILY 7 days #7 caps 12/03/23 capsule,extended release 24 hr Allergies Allergy/AdvReac Type Severity Reaction Status Date / Time No Known Allergies Allergy Verified 10/06/23 06:34 Review of Systems 2 General: Reports: ROS unobtainable due to medical condition and ROS unobtainable due to mental status [facility] ED 2 PFSH: Medical History Tendinopathy of left rotator cuff Osteoarthritis of left shoulder Left anterior shoulder pain Hx of fracture of nose had it set Stool incontinence Hemorrhoids without complication Marijuana dependence Dizziness Chronic GERD New onset type 2 diabetes mellitus HgA1C 04-10-2021 6.3 Smoker Quit 08/31/2021 Spondylolisthesis at L5-S1 level Anxiety and depression HTN (hypertension) Surgical History History of uvulectomy History of esophagogastroduodenoscopy (EGD) Social History Smoking and tobacco/nicotine status: never used tobacco/nicotine Second hand smoke exposure: Yes Alcohol intake: current Alcohol intake frequency: few times a week Substance/Drug Use: current Substance/Drug use frequency: daily Marital status: Current occupational status: unemployed Physical Exam 2 Narrative: EXAM NARRATIVE: General: Alert, Skin: Warm, dry. Head: Normocephalic, atraumatic. Neck: Supple, trachea midline. Eye: Extraocular movements are intact. Ears, nose, mouth and throat: mucosa moist. Cardiovascular: Regular, tachycardic, normal peripheral perfusion. Respiratory: Lungs are clear to auscultation, respirations are non-labored, breath sounds are equal, Symmetrical chest wall expansion. Gastrointestinal: Soft, Non distended Musculoskeletal: Normal ROM, no deformity. Neurological: Patient is walking and talking, no focal neurological deficit observed. Psychiatric: Patient is extremely uncooperative, intoxicated and belligerent. He says he wants to numerous times. Course 2 Vital Signs: Vital signs: Vital Signs Temperature 99 F 12/03/23 12:16 Pulse Rate 105 H 12/03/23 12:16 Respiratory Rate 18 12/03/23 12:16 Blood Pressure 143/95 12/03/23 12:16 Pulse Oximetry 96 12/03/23 12:16 Oxygen Delivery Me thod Room Air 12/02/23 16:00 Oxygen Flow Rate 1.5 11/30/23 22:46 MDM - Psych Medical Decision Making Patient care transition to Dr. Palmer at shift change Lab Data 12/02/23 17:10 12/02/23 17:10 Laboratory Results WBC 18.33 10^3/uL (3.29-11.43) H 11/30/23 20:47 RBC 4.75 10^6/uL (3.85-5.65) 11/30/23 20:47 Hgb 15.60 g/dL (11.27-16.99) 11/30/23 20:47 Hct 43.2 % (37-53) 11/30/23 20:47 MCV 90.9 fl (82-101) 11/30/23 20:47 MCH 32.8 pg (27-33) 11/30/23 20:47 MCHC 36.1 g/dL (30-55) 11/30/23 20:47 RDW 13.5 % (12.1-15.1) 11/30/23 20:47 Plt Count 347 10^3/cmm (157-399) 11/30/23 20:47 MPV 11.7 fL (7.4-10.4) H 11/30/23 20:47 Neut % (Auto) 51.7 % 11/30/23 20:47 Lymph % (Auto) 40.5 % 11/30/23 20:47 [place] % (Auto) 5.2 % 11/30/23 20:47 Eos % (Auto) 1.7 % 11/30/23 20:47 Baso % (Auto) 0.5 % 11/30/23 20:47 Neut # (Auto) 9.46 10^3/uL (1.8-7.7) H 11/30/23 20:47 Lymph # (Auto) 7.4 10^3/uL (0.8-4.8) H 11/30/23 20:47 [place] # (Auto) 1.0 10^3/uL (0.2-0.9) H 11/30/23 20:47 Eos # (Auto) 0.3 10^3/uL (0.0-0.8) 11/30/23 20:47 Baso # (Auto) 0.1 10^3/uL (0.0-0.1) 11/30/23 20:47 Nucleated RBC % (auto) 0 % 11/30/23 20:47 Nucleated RBCs # 0.0 /100WBC 11/30/23 20:47 Sodium 136 mmol/L (136-145) 11/30/23 20:47 Potassium 4.2 mmol/L (3.5-5.1) 11/30/23 20:47 Chloride 96 mmol/L (98-107) L 11/30/23 20:47 Carbon Dioxide 22 mmol/L (22-29) 11/30/23 20:47 Anion Gap 22.2 (5-19) H 11/30/23 20:47 BUN 11 mg/dL (6-20) 11/30/23 20:47 Creatinine 0.8 mg/dL (0.7-1.2) 11/30/23 20:47 GFR Calculation 105.0 mL/min (90-130) 11/30/23 20:47 Glucose 131 mg/dL (65-115) H 11/30/23 20:47 Calculated Osmolality 283 mOsm/kg (285-295) L 11/30/23 20:47 Calcium 8.8 mg/dL (8.5-10.5) 11/30/23 20:47 Total Bilirubin 0.2 mg/dL (0.15-1.2) 11/30/23 20:47 AST 5 U/L (0-40) 11/30/23 20:47 ALT < 5 U/L (0-41) 11/30/23 20:47 Alkaline Phosphatase 81 U/L (40-130) 11/30/23 20:47 Total Protein 7.5 g/dL (6.6-8.7) 11/30/23 20:47 Albumin 4.2 g/dL (3.5-5.2) 11/30/23 20:47 Globulin 3.3 g/dL (1.3-4.6) 11/30/23 20:47 TSH 0.44 uIU/mL (0.27-4.20) 11/30/23 20:47 Urine Color Yellow (Yellow) 11/30/23 01:09 Urine Appearance Clear (CLEAR) 11/30/23 01:09 Urine pH 5.5 (5-7) 11/30/23 01:09 Ur Specific [place] 1.010 (1.005-1.030) 11/30/23 01:09 Urine Protein Trace (Negative) A 11/30/23 01:09 Urine Glucose (UA) Negative (Normal) 11/30/23 01:09 Urine Ketones Trace (Negative) 11/30/23 01:09 Urine Blood Negative (Negative) 11/30/23 01:09 Urine Nitrate Negative (Negative) 11/30/23 01:09 Urine Bilirubin Negative (Negative) 11/30/23 01:09 Urine Urobilinogen 0.2 mg/dL (Negative) 11/30/23 01:09 Ur Leukocyte Esterase Negative (Negative) 11/30/23 01:09 Urine RBC 0-2 /hpf (0-2) 11/30/23 01:09 Urine WBC 0-5 /hpf (0-5) 11/30/23 01:09 Ur Squamous Epith Cells 0-5 /hpf (0-5) 11/30/23 01:09 Amorphous Sediment Not Reportable 11/30/23 01:09 Urine Bacteria None seen /hpf (NONE) 11/30/23 01:09 Hyaline Casts 0.40 /lpf 11/30/23 01:09 Salicylates < 0.3 mg/dL (3-10) L 11/30/23 20:47 Urine Opiates Screen Positive ng/mL (Negative) H 11/30/23 01:09 Acetaminophen < 5.0 ug/mL (10-30) L 11/30/23 20:47 Ur Barbiturates Screen Negative ng/mL (Negative) 11/30/23 01:09 Ur Phencyclidine Scrn Negative ng/mL (Negative) 11/30/23 01:09 Ur Amphetamines Screen Negative ng/mL (Negative) 11/30/23 01:09 U Benzodiazepines Scrn Negative ng/mL (Negative) 11/30/23 01:09 Urine Cocaine Screen Negative ng/mL (Negative) 11/30/23 01:09 U Marijuana (THC) Screen Positive ng/mL (Negative) H 11/30/23 01:09 Ethyl Alcohol 120 mg/dL (0-10) H 12/01/23 04:05 Influenza Type A Ag negative (Negative) 11/30/23 23:26 Influenza Type B Ag negative (Negative) 11/30/23 23:26 RSV Antigen Negative (Negative) 11/30/23 23:26 SARS-CoV-2 Ag (Rapid) negative (Negative) 11/30/23 23:26 Discharge Plan Discharge Patient Disposition: [facility] Clinical Impression: Suicidal ideation, Homicidal ideation Condition: Stable Discharge Orders: Discharge Order (Routine); Ordered 12/03/23 Ordered By: Bo Hudson Discharge Diet: Usual diet Discharge Activity: Resume usual activity Sign Out Sign Out Data: Patient Sign Out occurred on 12/01/23 at 06:08. Patient's care was discussed, and care was transferred from Oliver Palmer DO to Savage Carrasco DO. Coding Level of Care Code ED Life Claims Examiner for Chg Fwd Documented by User: Oliver Palmer DO 12/06/23 00:36 HPI - Psych 2 General: Chief Complaint: Psychiatric Symptoms Stated Complaint: SI/HI Time Seen by Provider: 11/30/23 20:34 Related Data Home Medications Medication Instructions Recorded Confirmed trazodone 100 mg tablet 75 mg PO BEDTIME 12/10/22 12/01/23 chlorthalidone 25 mg tablet 25 mg PO DAILY 08/05/23 12/01/23 hydrocodone 5 mg-acetaminophen 325 1 tab PO 3XD PRN Pain 08/05/23 12/01/23 mg tablet cetirizine 10 mg tablet 10 mg PO DAILY 12/01/23 12/01/23 ipratropium 20 mcg-albuterol 100 2 puff inhalation QID 12/01/23 12/01/23 mcg/actuation mist for inhalation (Combivent Respimat) Previous Rx's Medication Instructions Recorded lisinopril 20 mg tablet 20 mg PO DAILY #90 tabs 05/08/22 duloxetine 30 mg capsule,delayed 30 mg PO DAILY 30 days #30 caps 12/03/23 release venlafaxine 37.5 mg 37.5 mg PO DAILY 7 days #7 caps 12/03/23 capsule,extended release 24 hr Allergies Allergy/AdvReac Type Severity Reaction Status Date / Time No Known Allergies Allergy Verified 10/06/23 06:34 PFSH ED 2 PFSH: Medical History Tendinopathy of left rotator cuff Osteoarthritis of left shoulder Left anterior shoulder pain Hx of fracture of nose had it set Stool incontinence Hemorrhoids without complication Marijuana dependence Dizziness Chronic GERD New onset type 2 diabetes mellitus HgA1C 04-10-2021 6.3 Smoker Quit 08/31/2021 Spondylolisthesis at L5-S1 level Anxiety and depression HTN (hypertension) Surgical History History of uvulectomy History of esophagogastroduodenoscopy (EGD) Social History Smoking and tobacco/nicotine status: never used tobacco/nicotine Second hand smoke exposure: Yes Alcohol intake: current Alcohol intake frequency: few times a week Substance/Drug Use: current Substance/Drug use frequency: daily Marital status: Current occupational status: unemployed Face to Face: Restrn/Seclusion Events leading up to initiation: Combative/Striking out at staff or others Evaluation of patient's immediate situation: Signs of physical distress and Signs of psychological distress Patient reaction since intervention applied: Behaviors/threats have lessened, but still present Recent labs reviewed: Yes Review of medications: Yes Patient's current medical/behavioral condition: No new concerns since last ROS Need for restraint or seclusion is: Continued Attending notified: Attending completed assessment Course 2 Vital Signs: Vital signs: Vital Signs Temperature 99 F 12/03/23 12:16 Pulse Rate 105 H 12/03/23 12:16 Respiratory Rate 18 12/03/23 12:16 Blood Pressure 143/95 12/03/23 12:16 Pulse Oximetry 96 12/03/23 12:16 Oxygen Delivery Me thod Room Air 12/02/23 16:00 Oxygen Flow Rate 1.5 11/30/23 22:46 MDM - Psych Medical Decision Making Patient care transition to Dr. Palmer at shift change Patient checked out to me at shift change by the previous physician. Since his initial medication administration, he has remained calm. Medically, he is stable. He does have a leukocytosis, but no left shift and no cells. CBC is otherwise unremarkable. BMP is not remarkable. Urinalysis is negative. Urine drug screen positive for marijuana and opiates. Laboratory not remarkable otherwise. He remains medically stable. We have no beds available at our neuropsychiatric facility currently. He has been placed under 96-hour hold. He will require transfer for psychiatric evaluation. We are currently looking for facilities. Lab Data 12/02/23 17:10 12/02/23 17:10 Laboratory Results WBC 18.33 10^3/uL (3.29-11.43) H 11/30/23 20:47 RBC 4.75 10^6/uL (3.85-5.65) 11/30/23 20:47 Hgb 15.60 g/dL (11.27-16.99) 11/30/23 20:47 Hct 43.2 % (37-53) 11/30/23 20:47 MCV 90.9 fl (82-101) 11/30/23 20:47 MCH 32.8 pg (27-33) 11/30/23 20:47 MCHC 36.1 g/dL (30-55) 11/30/23 20:47 RDW 13.5 % (12.1-15.1) 11/30/23 20:47 Plt Count 347 10^3/cmm (157-399) 11/30/23 20:47 MPV 11.7 fL (7.4-10.4) H 11/30/23 20:47 Neut % (Auto) 51.7 % 11/30/23 20:47 Lymph % (Auto) 40.5 % 11/30/23 20:47 [place] % (Auto) 5.2 % 11/30/23 20:47 Eos % (Auto) 1.7 % 11/30/23 20:47 Baso % (Auto) 0.5 % 11/30/23 20:47 Neut # (Auto) 9.46 10^3/uL (1.8-7.7) H 11/30/23 20:47 Lymph # (Auto) 7.4 10^3/uL (0.8-4.8) H 11/30/23 20:47 [place] # (Auto) 1.0 10^3/uL (0.2-0.9) H 11/30/23 20:47 Eos # (Auto) 0.3 10^3/uL (0.0-0.8) 11/30/23 20:47 Baso # (Auto) 0.1 10^3/uL (0.0-0.1) 11/30/23 20:47 Nucleated RBC % (auto) 0 % 11/30/23 20:47 Nucleated RBCs # 0.0 /100WBC 11/30/23 20:47 Sodium 136 mmol/L (136-145) 11/30/23 20:47 Potassium 4.2 mmol/L (3.5-5.1) 11/30/23 20:47 Chloride 96 mmol/L (98-107) L 11/30/23 20:47 Carbon Dioxide 22 mmol/L (22-29) 11/30/23 20:47 Anion Gap 22.2 (5-19) H 11/30/23 20:47 BUN 11 mg/dL (6-20) 11/30/23 20:47 Creatinine 0.8 mg/dL (0.7-1.2) 11/30/23 20:47 GFR Calculation 105.0 mL/min (90-130) 11/30/23 20:47 Glucose 131 mg/dL (65-115) H 11/30/23 20:47 Calculated Osmolality 283 mOsm/kg (285-295) L 11/30/23 20:47 Calcium 8.8 mg/dL (8.5-10.5) 11/30/23 20:47 Total Bilirubin 0.2 mg/dL (0.15-1.2) 11/30/23 20:47 AST 5 U/L (0-40) 11/30/23 20:47 ALT < 5 U/L (0-41) 11/30/23 20:47 Alkaline Phosphatase 81 U/L (40-130) 11/30/23 20:47 Total Protein 7.5 g/dL (6.6-8.7) 11/30/23 20:47 Albumin 4.2 g/dL (3.5-5.2) 11/30/23 20:47 Globulin 3.3 g/dL (1.3-4.6) 11/30/23 20:47 TSH 0.44 uIU/mL (0.27-4.20) 11/30/23 20:47 Urine Color Yellow (Yellow) 11/30/23 01:09 Urine Appearance Clear (CLEAR) 11/30/23 01:09 Urine pH 5.5 (5-7) 11/30/23 01:09 Ur Specific [place] 1.010 (1.005-1.030) 11/30/23 01:09 Urine Protein Trace (Negative) A 11/30/23 01:09 Urine Glucose (UA) Negative (Normal) 11/30/23 01:09 Urine Ketones Trace (Negative) 11/30/23 01:09 Urine Blood Negative (Negative) 11/30/23 01:09 Urine Nitrate Negative (Negative) 11/30/23 01:09 Urine Bilirubin Negative (Negative) 11/30/23 01:09 Urine Urobilinogen 0.2 mg/dL (Negative) 11/30/23 01:09 Ur Leukocyte Esterase Negative (Negative) 11/30/23 01:09 Urine RBC 0-2 /hpf (0-2) 11/30/23 01:09 Urine WBC 0-5 /hpf (0-5) 11/30/23 01:09 Ur Squamous Epith Cells 0-5 /hpf (0-5) 11/30/23 01:09 Amorphous Sediment Not Reportable 11/30/23 01:09 Urine Bacteria None seen /hpf (NONE) 11/30/23 01:09 Hyaline Casts 0.40 /lpf 11/30/23 01:09 Salicylates < 0.3 mg/dL (3-10) L 11/30/23 20:47 Urine Opiates Screen Positive ng/mL (Negative) H 11/30/23 01:09 Acetaminophen < 5.0 ug/mL (10-30) L 11/30/23 20:47 Ur Barbiturates Screen Negative ng/mL (Negative) 11/30/23 01:09 Ur Phencyclidine Scrn Negative ng/mL (Negative) 11/30/23 01:09 Ur Amphetamines Screen Negative ng/mL (Negative) 11/30/23 01:09 U Benzodiazepines Scrn Negative ng/mL (Negative) 11/30/23 01:09 Urine Cocaine Screen Negative ng/mL (Negative) 11/30/23 01:09 U Marijuana (THC) Screen Positive ng/mL (Negative) H 11/30/23 01:09 Ethyl Alcohol 120 mg/dL (0-10) H 12/01/23 04:05 Influenza Type A Ag negative (Negative) 11/30/23 23:26 Influenza Type B Ag negative (Negative) 11/30/23 23:26 RSV Antigen Negative (Negative) 11/30/23 23:26 SARS-CoV-2 Ag (Rapid) negative (Negative) 11/30/23 23:26 Discharge Plan Discharge Patient Disposition: Xfer Psychiatric Hosp Clinical Impression: Suicidal ideation, Homicidal ideation Condition: Stable Discharge Orders: Discharge Order (Routine); Ordered 12/03/23 Ordered By: Bo Hudson Discharge Diet: Usual diet Discharge Activity: Resume usual activity Sign Out Sign Out Data: Patient Sign Out occurred on 12/01/23 at 06:08. Patient's care was discussed, and care was transferred from Oliver Palmer DO to Savage Carrasco DO. Coding Level of Care Code ED Life Claims Examiner for Chg Fwd Documented by User: Savage Carrasco DO 12/01/23 14:36 HPI - Psych 2 General: Chief Complaint: Psychiatric Symptoms Stated Complaint: SI/HI Time Seen by Provider: 11/30/23 20:34 History of Present Illness: 43-year-old male who presents emergency room with police. Apparently he had called 911 and said he had a gun and he was going to kill himself and that if anyone showed up he might kill them too. Upon arrival there was a brief standoff and he finally turned himself over to the police. He has been very belligerent and yelling and is extremely intoxicated. Ultimately had to be restrained here in the emergency room. He required multiple police officers. Related Data Home Medications Medication Instructions Recorded Confirmed trazodone 100 mg tablet 75 mg PO BEDTIME 12/10/22 12/01/23 chlorthalidone 25 mg tablet 25 mg PO DAILY 08/05/23 12/01/23 hydrocodone 5 mg-acetaminophen 325 1 tab PO 3XD PRN Pain 08/05/23 12/01/23 mg tablet cetirizine 10 mg tablet 10 mg PO DAILY 12/01/23 12/01/23 ipratropium 20 mcg-albuterol 100 2 puff inhalation QID 12/01/23 12/01/23 mcg/actuation mist for inhalation (Combivent Respimat) Previous Rx's Medication Instructions Recorded lisinopril 20 mg tablet 20 mg PO DAILY #90 tabs 05/08/22 duloxetine 30 mg capsule,delayed 30 mg PO DAILY 30 days #30 caps 08/28/24 release venlafaxine 37.5 mg 37.5 mg PO DAILY 7 days #7 caps 12/03/23 capsule,extended release 24 hr Allergies Allergy/AdvReac Type Severity Reaction Status Date / Time No Known Allergies Allergy Verified 10/06/23 06:34 [facility] ED 2 PFSH: Medical History Tendinopathy of left rotator cuff Osteoarthritis of left shoulder Left anterior shoulder pain Hx of fracture of nose had it set Stool incontinence Hemorrhoids without complication Marijuana dependence Dizziness Chronic GERD New onset type 2 diabetes mellitus HgA1C 04-10-2021 6.3 Smoker Quit 08/31/2021 Spondylolisthesis at L5-S1 level Anxiety and depression HTN (hypertension) Surgical History History of uvulectomy History of esophagogastroduodenoscopy (EGD) Social History Smoking and tobacco/nicotine status: never used tobacco/nicotine Second hand smoke exposure: Yes Alcohol intake: current Alcohol intake frequency: few times a week Substance/Drug Use: current Substance/Drug use frequency: daily Marital status: Current occupational status: unemployed Course 2 Vital Signs: Vital signs: Vital Signs Temperature 99 F 12/03/23 12:16 Pulse Rate 105 H 12/03/23 12:16 Respiratory Rate 18 12/03/23 12:16 Blood Pressure 143/95 12/03/23 12:16 Pulse Oximetry 96 12/03/23 12:16 Oxygen Delivery Ia thod Room Air 12/02/23 16:00 Oxygen Flow Rate 1.5 11/30/23 22:46 MDM - Psych Medical Decision Making Patient care transition to Dr. Palmer at shift change Patient checked out to me at shift change by the previous physician. Since his initial medication administration, he has remained calm. Medically, he is stable. He does have a leukocytosis, but no left shift and no cells. CBC is otherwise unremarkable. BMP is not remarkable. Urinalysis is negative. Urine drug screen positive for marijuana and opiates. Laboratory not remarkable otherwise. He remains medically stable. We have no beds available at our neuropsychiatric facility currently. He has been placed under 96-hour hold. He will require transfer for psychiatric evaluation. We are currently looking for facilities. 12/01/2023 1436 Patient care assumed at change of shift. He did require nicotine patch. Has not been difficult at all this morning of this afternoon. We initially had been looking for placement for the patient however bed became available in our inpatient unit. I discussed Dr. Neal he is agreed to accept the patient patient will be admitted under 96-hour hold orders written Lab Data 12/02/23 17:10 12/02/23 17:10 Laboratory Results WBC 18.33 10^3/uL (3.29-11.43) H 11/30/23 20:47 RBC 4.75 10^6/uL (3.85-5.65) 11/30/23 20:47 Hgb 15.60 g/dL (11.27-16.99) 11/30/23 20:47 Hct 43.2 % (37-53) 11/30/23 20:47 MCV 90.9 fl (82-101) 11/30/23 20:47 MCH 32.8 pg (27-33) 11/30/23 20:47 MCHC 36.1 g/dL (30-55) 11/30/23 20:47 RDW 13.5 % (12.1-15.1) 11/30/23 20:47 Plt Count 347 10^3/cmm (157-399) 11/30/23 20:47 MPV 11.7 fL (7.4-10.4) H 11/30/23 20:47 Neut % (Auto) 51.7 % 11/30/23 20:47 Lymph % (Auto) 40.5 % 11/30/23 20:47 [place] % (Auto) 5.2 % 11/30/23 20:47 Eos % (Auto) 1.7 % 11/30/23 20:47 Baso % (Auto) 0.5 % 11/30/23 20:47 Neut # (Auto) 9.46 10^3/uL (1.8-7.7) H 11/30/23 20:47 Lymph # (Auto) 7.4 10^3/uL (0.8-4.8) H 11/30/23 20:47 [place] # (Auto) 1.0 10^3/uL (0.2-0.9) H 11/30/23 20:47 Eos # (Auto) 0.3 10^3/uL (0.0-0.8) 11/30/23 20:47 Baso # (Auto) 0.1 10^3/uL (0.0-0.1) 11/30/23 20:47 Nucleated RBC % (auto) 0 % 11/30/23 20:47 Nucleated RBCs # 0.0 /100WBC 11/30/23 20:47 Sodium 136 mmol/L (136-145) 11/30/23 20:47 Potassium 4.2 mmol/L (3.5-5.1) 11/30/23 20:47 Chloride 96 mmol/L (98-107) L 11/30/23 20:47 Carbon Dioxide 22 mmol/L (22-29) 11/30/23 20:47 Anion Gap 22.2 (5-19) H 11/30/23 20:47 BUN 11 mg/dL (6-20) 11/30/23 20:47 Creatinine 0.8 mg/dL (0.7-1.2) 11/30/23 20:47 GFR Calculation 105.0 mL/min (90-130) 11/30/23 20:47 Glucose 131 mg/dL (65-115) H 11/30/23 20:47 Calculated Osmolality 283 mOsm/kg (285-295) L 11/30/23 20:47 Calcium 8.8 mg/dL (8.5-10.5) 11/30/23 20:47 Total Bilirubin 0.2 mg/dL (0.15-1.2) 11/30/23 20:47 AST 5 U/L (0-40) 11/30/23 20:47 ALT < 5 U/L (0-41) 11/30/23 20:47 Alkaline Phosphatase 81 U/L (40-130) 11/30/23 20:47 Total Protein 7.5 g/dL (6.6-8.7) 11/30/23 20:47 Albumin 4.2 g/dL (3.5-5.2) 11/30/23 20:47 Globulin 3.3 g/dL (1.3-4.6) 11/30/23 20:47 TSH 0.44 uIU/mL (0.27-4.20) 11/30/23 20:47 Urine Color Yellow (Yellow) 11/30/23 01:09 Urine Appearance Clear (CLEAR) 11/30/23 01:09 Urine pH 5.5 (5-7) 11/30/23 01:09 Ur Specific [place] 1.010 (1.005-1.030) 11/30/23 01:09 Urine Protein Trace (Negative) A 11/30/23 01:09 Urine Glucose (UA) Negative (Normal) 11/30/23 01:09 Urine Ketones Trace (Negative) 11/30/23 01:09 Urine Blood Negative (Negative) 11/30/23 01:09 Urine Nitrate Negative (Negative) 11/30/23 01:09 Urine Bilirubin Negative (Negative) 11/30/23 01:09 Urine Urobilinogen 0.2 mg/dL (Negative) 11/30/23 01:09 Ur Leukocyte Esterase Negative (Negative) 11/30/23 01:09 Urine RBC 0-2 /hpf (0-2) 11/30/23 01:09 Urine WBC 0-5 /hpf (0-5) 11/30/23 01:09 Ur Squamous Epith Cells 0-5 /hpf (0-5) 11/30/23 01:09 Amorphous Sediment Not Reportable 11/30/23 01:09 Urine Bacteria None seen /hpf (NONE) 11/30/23 01:09 Hyaline Casts 0.40 /lpf 11/30/23 01:09 Salicylates < 0.3 mg/dL (3-10) L 11/30/23 20:47 Urine Opiates Screen Positive ng/mL (Negative) H 11/30/23 01:09 Acetaminophen < 5.0 ug/mL (10-30) L 11/30/23 20:47 Ur Barbiturates Screen Negative ng/mL (Negative) 11/30/23 01:09 Ur Phencyclidine Scrn Negative ng/mL (Negative) 11/30/23 01:09 Ur Amphetamines Screen Negative ng/mL (Negative) 11/30/23 01:09 U Benzodiazepines Scrn Negative ng/mL (Negative) 11/30/23 01:09 Urine Cocaine Screen Negative ng/mL (Negative) 11/30/23 01:09 U Marijuana (THC) Screen Positive ng/mL (Negative) H 11/30/23 01:09 Ethyl Alcohol 120 mg/dL (0-10) H 12/01/23 04:05 Influenza Type A Ag negative (Negative) 11/30/23 23:26 Influenza Type B Ag negative (Negative) 11/30/23 23:26 RSV Antigen Negative (Negative) 11/30/23 23:26 SARS-CoV-2 Ag (Rapid) negative (Negative) 11/30/23 23:26 No radiology studies performed this visit Discharge Plan Discharge Patient Disposition: Xfer Psychiatric Hosp Clinical Impression: Suicidal ideation, Homicidal ideation Condition: Stable Discharge Orders: Discharge Order (Routine); Ordered 12/03/23 Ordered By: Bo Hudson Discharge Diet: Usual diet Discharge Activity: Resume usual activity Sign Out Sign Out Data: Patient Sign Out occurred on 12/01/23 at 06:08. Patient's care was discussed, and care was transferred from Oliver Palmer DO to Savage Carrasco DO. Coding Level of Care Code ED Life Claims Examiner for Amanda Boone
[2023-11-30 21:33] VITALS: BP 105/66; PULSE 101; RESP 18; O2SAT 92
--- NOTE | 2023-11-30 21:52 | PC.NURSE ---
PT OUT OF LEG RESTRAINTS @[id number].
[2023-11-30 22:00] VITALS: BP 103/79; O2SAT 92
--- NOTE | 2023-11-30 22:18 | PC.NURSE ---
arm restraints removed. no physical restraints on the pt at this time. monitoring still on pt. pt is audibly snoring
[2023-11-30 22:46] VITALS: BP 100/72; PULSE 107; O2SAT 92
--- NOTE | 2023-11-30 22:51 | PC.NURSE ---
96 Hour Hold Pt served with copy of 96 HH by this RN and Security. Pt not alert, sleeping with sonorous respirations. Copy of Right Sheet left at bedside.
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
[2023-11-30 23:00] VITALS: BP 92/70; O2SAT 93
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
[2023-11-30 23:35] LABS: Basophils # 0.1 10^3/uL (0.0-0.1); Basophils % 0.5 %; Eosinophils # 0.3 10^3/uL (0.0-0.8); Eosinophils % 1.7 %; Hematocrit 43.2 % (37-53); Lymphocytes # 7.4 10^3/uL (0.8-4.8); Lymphocytes % 40.5 %; Mean Corpuscular HGB Conc 36.1 g/dL (30-55); Mean Corpuscular Hemoglobin 32.8 pg (27-33); Mean Corpuscular Volume 90.9 fl (82-101); Mean Platelet Volume 11.7 fL (7.4-10.4); Monocytes % 5.2 %; Neutrophils # 9.46 10^3/uL (1.8-7.7); Neutrophils % 51.7 %; Nucleated Red Blood Cells % 0 %; Platelet Count 347 10^3/cmm (157-399); Red Blood Count 4.75 10^6/uL (3.85-5.65); Red Cell Distribution Width 13.5 % (12.1-15.1); White Blood Count 18.33 10^3/uL (3.29-11.43)
--- NOTE | 2023-11-30 23:40 | ECG_ITS ---
[facility] Test Date: 2023-11-30 Pat Name: Oliver Monaco Department: Room: Gender: Male [employer]er Line Repairer: : 1980 Requested By: Oliver Reaves Order Number: [id number] Laya MD: Lizeth Hammond M.D. Measurements Intervals [place] Rate: 103 P: 48 MO: 191 QRS: 19 QRSD: 94 T: 7 QT: 354 QTc: 464 Interpretive Statements SINUS TACHYCARDIA ABNORMAL RHYTHM ECG Compared to ECG 10/11/2020 16:32:51 Sinus rhythm no longer present T-wave abnormality no longer present Electronically Signed On 12-01-2023 22:44:57 CDT by Lizeth Hammond M.D. [email or web address]
[2023-11-30 23:47] LABS: Influenza A by IFA negative (Negative); Influenza B by IFA negative (Negative); RSV Transfer Patient (ED) Negative (Negative); SARS Covid-2 Antigen negative (Negative)
[2023-11-30 23:49] VITALS: BP 100/76; PULSE 104; RESP 18; O2SAT 93
[2023-11-30 23:51] LABS: Alkaline Phosphatase 81 U/L (40-130); Blood Urea Nitrogen 11 mg/dL (6-20); Calcium 8.8 mg/dL (8.5-10.5); Carbon Dioxide 22 mmol/L (22-29); Chloride 96 mmol/L (98-107); Creatinine Clr Calc Pharmacy 115.9313; Glucose 131 mg/dL (65-115); Osmolality Calculated 283 mOsm/kg (285-295); Sodium 136 mmol/L (136-145); Thyroid Stimulating Hormone 0.44 uIU/mL (0.27-4.20); Total Bilirubin 0.2 mg/dL (0.15-1.2); Total Protein 7.5 g/dL (6.6-8.7)
[2023-11-30 23:53] LABS: Acetaminophen < 5.0 ug/mL (10-30); Anion Gap 22.2 (5-19); Potassium 4.2 mmol/L (3.5-5.1); Salicylate < 0.3 mg/dL (3-10)
[2023-11-30 23:54] LABS: Albumin Level 4.2 g/dL (3.5-5.2); Globulin 3.3 g/dL (1.3-4.6)
[2023-12-01] VITALS (7 sets, daily range): BP systolic 100–143; BP diastolic 65–104; PULSE 80–104; RESP 16–18; TEMP 36.8–37; O2SAT 92–99
[2023-12-01 00:03] LABS: Alanine Aminotransferase < 5 U/L (0-41); Aspartate Amino Transferase 5 U/L (0-40)
[2023-12-01 00:08] LABS: Alcohol Level 262 mg/dL (0-10)
--- NOTE | 2023-12-01 01:11 | PC.NURSE ---
PT AMBULATED TO RESTROOM WITH ASSISTANCE.
[2023-12-01 01:13] LABS: Charge for UA Resulting for Rev
[2023-12-01 01:17] LABS: Bilirubin Urine Negative (Negative); Blood Urine Negative (Negative); Glucose Urine UA Negative (Normal); Ketones Urine Trace (Negative); Leukocyte Esterase Urine Negative (Negative); Nitrate Urine Negative (Negative); Protein Urine Trace (Negative); Urine Appearance Clear (CLEAR); Urine Color Yellow (Yellow); Urobilinogen Urine 0.2 mg/dL (Negative); pH Urine 5.5 (5-7)
[2023-12-01 01:20] LABS: Bacteria Urine None Seen /hpf; RBC Urine 0-2 /hpf (0-2); Squamous Epithelial Cell Urine 0-5 /hpf (0-5); WBC Urine 0-5 /hpf (0-5)
[2023-12-01 01:25] LABS: Amphetamines Screen Urine Negative (Negative); Barbiturates Screen Urine Negative (Negative); Benzodiazepines Screen Urine Negative (Negative); Cocaine Screen Urine Negative (Negative); Opiate Screen Urine Positive (Negative); PCP Screen Urine Negative (Negative); THC Screen Urine Positive (Negative)
[2023-12-01 04:31] LABS: Alcohol Level 120 mg/dL (0-10)
--- NOTE | 2023-12-01 04:40 | PC.NURSE ---
pt able to ambulate to restroom and back without assistance. pt provided new linens and water. pt verbalized understanding of current situation and wishes to go to sleep again. pt resting quietly in bed at this time with no further requests
--- NOTE | 2023-12-01 06:31 | PC.NURSE ---
THIS NURSE WOKE PT UP FOR VITALS THIS MORNING, HE WAS CALM AND PLEASANT. PT AMBULATED TO BATHROOM WITH STAFF. PT WAS GIVEN WATER WELL.
[2023-12-01] MEDS: nicotine 21 mg Patch 1 PATCH TRANSDERMA (08:42)
[2023-12-01] MEDS: venlafaxine ER (24HR) 75 mg Capsule PO (14:02)
[2023-12-01] MEDS: lisinopril 20 mg Tablet PO (14:02)
[2023-12-01] MEDS: chlorthalidone 25 mg Tablet PO (14:02)
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
[2023-12-01] MEDS: trazodone 100 mg Tablet PO (20:36)
[2023-12-01] MEDS: cetirizine 10 mg Tablet PO (20:36)
[2023-12-02] VITALS: BP 151/77; PULSE 96; RESP 16; TEMP 36.7; O2SAT 96
[2023-12-02 04:00] VITALS: BP 114/79; PULSE 83; RESP 16; TEMP 36.7; O2SAT 95
[2023-12-02 07:29] VITALS: BP 155/116; PULSE 91; RESP 16; TEMP 36.8; O2SAT 96
[2023-12-02] MEDS: LORazepam 2 mg Tablet PO (07:52)
[2023-12-02] MEDS: thiamine 100 mg Tablet PO (08:00)
[2023-12-02] MEDS: folic acid 1 mg Tablet PO (08:00)
[2023-12-02] MEDS: lisinopril 20 mg Tablet PO (08:00)
[2023-12-02] MEDS: venlafaxine ER (24HR) 75 mg Capsule PO (08:00)
[2023-12-02] MEDS: multivitamin therapeutic Tablet 1 TAB PO (08:01)
[2023-12-02] MEDS: nicotine 21 mg Patch 1 PATCH TRANSDERMA (08:20)
[2023-12-02] MEDS: chlorthalidone 25 mg Tablet PO (08:23)
[2023-12-02 11:38] VITALS: BP 116/81; PULSE 85; RESP 16; TEMP 37.1; O2SAT 97
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
[2023-12-02 16:00] VITALS: BP 120/87; PULSE 109; RESP 16; TEMP 37.3; O2SAT 95
[2023-12-02] MEDS: acetaminophen 325 mg Tablet 650 MG PO (16:11)
[2023-12-02 17:46] LABS: Basophils # 0.1 10^3/uL (0.0-0.1); Basophils % 0.6 %; Eosinophils # 0.3 10^3/uL (0.0-0.8); Eosinophils % 2.6 %; Hematocrit 45.5 % (37-53); Lymphocytes # 4.2 10^3/uL (0.8-4.8); Lymphocytes % 33.1 %; Mean Corpuscular HGB Conc 34.7 g/dL (30-55); Mean Corpuscular Hemoglobin 31.7 pg (27-33); Mean Corpuscular Volume 91.4 fl (82-101); Mean Platelet Volume 11.4 fL (7.4-10.4); Monocytes # 0.9 10^3/uL (0.2-0.9); Monocytes % 6.8 %; Neutrophils # 7.13 10^3/uL (1.8-7.7); Neutrophils % 56.6 %; Nucleated Red Blood Cells % 0 %; Platelet Count 308 10^3/cmm (157-399); Red Blood Count 4.98 10^6/uL (3.85-5.65); Red Cell Distribution Width 13.3 % (12.1-15.1)
[2023-12-02 18:06] LABS: Albumin Level 4.5 g/dL (3.5-5.2); Alkaline Phosphatase 87 U/L (40-130); Blood Urea Nitrogen 18 mg/dL (6-20); Calcium 9.8 mg/dL (8.5-10.5); Carbon Dioxide 26 mmol/L (22-29); Chloride 91 mmol/L (98-107); Globulin 3.4 g/dL (1.3-4.6); Glomerular Filtration Rate 122.5 mL/min (90-130); Glucose 141 mg/dL (65-115); Osmolality Calculated 284 mOsm/kg (285-295); Sodium 135 mmol/L (136-145); Total Bilirubin 0.2 mg/dL (0.15-1.2); Total Protein 7.9 g/dL (6.6-8.7)
[2023-12-02 18:08] LABS: Anion Gap 22.7 (5-19); Potassium 4.7 mmol/L (3.5-5.1)
[2023-12-02 18:19] LABS: Alanine Aminotransferase < 5 U/L (0-41); Aspartate Amino Transferase 5 U/L (0-40)
[2023-12-02 19:47] VITALS: BP 138/87; PULSE 100; RESP 16; TEMP 36.8; O2SAT 97
[2023-12-02] MEDS: cetirizine 10 mg Tablet PO (19:48)
[2023-12-02] MEDS: trazodone 100 mg Tablet PO (19:48)
[2023-12-03] VITALS: BP 119/75; PULSE 99; RESP 16; TEMP 36.5; O2SAT 96
[2023-12-03 04:00] VITALS: BP 124/87; PULSE 85; RESP 16; TEMP 36.8; O2SAT 95
[2023-12-03 08:00] VITALS: BP 127/83; PULSE 88; RESP 18; TEMP 37.2; O2SAT 97
[2023-12-03] MEDS: duloxetine 30 mg Capsule PO (09:21)
[2023-12-03] MEDS: folic acid 1 mg Tablet PO (09:21)
[2023-12-03] MEDS: thiamine 100 mg Tablet PO (09:21)
[2023-12-03] MEDS: lisinopril 20 mg Tablet PO (09:21)
[2023-12-03] MEDS: multivitamin therapeutic Tablet 1 TAB PO (09:21)
[2023-12-03] MEDS: chlorthalidone 25 mg Tablet PO (09:21)
[2023-12-03] MEDS: venlafaxine ER (24HR) 37.5 mg Capsule PO (09:44)
[2023-12-03 12:00] VITALS: BP 143/95; PULSE 105; RESP 18; TEMP 37.2; O2SAT 96
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
[2023-12-03 12:16] VITALS: BP 143/95; PULSE 105; RESP 18; TEMP 37.2; O2SAT 96
[2023-12-03 15:08] LABS: SARS Covid-2 Antigen Negative (Negative)
== END 2023-12-03 14:15 | disposition home or self-care (01) | DRG 881 ==
LOC: ER 12-01 06:08 → NP 12-01 14:25
PROVIDERS: Emergency Medicine; Admitting Provider Psychiatry & Neurology Psychiatry; Emergency Provider Family Medicine; PCP Physician Assistant; Visit Provider Psychiatry & Neurology Psychiatry
DX: F32.A Depression, unspecified (principal); R45.851 Suicidal ideations; K21.9 Gastro-esophageal reflux disease without esophagitis; E11.9 Type 2 diabetes mellitus without complications; I10 Essential (primary) hypertension; F41.9 Anxiety disorder, unspecified; M19.012 Primary osteoarthritis, left shoulder; F12.20 Cannabis dependence, uncomplicated; F10.10 Alcohol abuse, uncomplicated; Y90.8 Blood alcohol level of 240 mg/100 ml or more; R45.850 Homicidal ideations
CPT/HCPCS: 36415; 80053; 80306; 80307; 81003; 81015; 84443; 85025; 87426; 87804; 87899; 93005; 96372; 97150; 97165; 99285; J2060; J3486

== ENCOUNTER 2024-01-11 17:46 | Emergency (ER) | payer BC, MEDICAID, SELFPAY ==
[2024-01-11 17:51] VITALS: BP 100/75; PULSE 98; RESP 18; TEMP 36.9; O2SAT 96; BMI 32.4
--- NOTE | 2024-01-11 18:05 | ED_ITS ---
HPI - Wound/Laceration General: Chief Complaint: Wound/Laceration Stated Complaint: cut on finger Time Seen by Provider: 01/11/24 18:05 History of Present Illness: 43-year-old male patient comes in today for injury to the left ring finger. Patient was cutting some vegetables when he excellently cut his finger. Patient has a superficial laceration involving the distal finger. Patient reported difficulty getting bleeding to stop. This prompted patient to come to the ER. Related Data Home Medications Medication Instructions Recorded Confirmed trazodone 100 mg tablet 75 mg PO BEDTIME 12/10/22 12/10/23 chlorthalidone 25 mg tablet 25 mg PO DAILY 08/05/23 12/10/23 hydrocodone 5 mg-acetaminophen 325 1 tab PO 3XD PRN Pain 08/05/23 12/10/23 mg tablet cetirizine 10 mg tablet 10 mg PO DAILY 12/01/23 12/10/23 ipratropium 20 mcg-albuterol 100 2 puff inhalation QID 12/01/23 12/10/23 mcg/actuation mist for inhalation (Combivent Respimat) Previous Rx's Medication Instructions Recorded lisinopril 20 mg tablet 20 mg PO DAILY #90 tabs 05/08/22 duloxetine 30 mg capsule,delayed 30 mg PO DAILY 30 days #30 caps 12/03/23 release meloxicam 15 mg tablet 15 mg PO DAILY #30 tabs 12/10/23 Allergies Allergy/AdvReac Type Severity Reaction Status Date / Time No Known Allergies Allergy Verified 01/11/24 17:53 Review of Systems General: Reports: 10 or more systems reviewed and unremarkable except in HPI and below PFSH ED PFSH: Medical History Tendinopathy of left rotator cuff Osteoarthritis of left shoulder Left anterior shoulder pain Hx of fracture of nose had it set Stool incontinence Hemorrhoids without complication Marijuana dependence Dizziness Chronic GERD New onset type 2 diabetes mellitus HgA1C 04-10-2021 6.3 Smoker Quit 08/31/2021 Spondylolisthesis at L5-S1 level Anxiety and depression HTN (hypertension) Surgical History History of uvulectomy History of esophagogastroduodenoscopy (EGD) Social History Smoking and tobacco/nicotine status: unknown if used tobacco/nicotine Second hand smoke exposure: Yes Alcohol intake: current Alcohol intake frequency: few times a week Substance/Drug Use: current Substance/Drug use frequency: daily Marital status: Current occupational status: unemployed Physical Exam Const: COMMON NORMALS: alert HENMT: COMMON NORMALS: normocephalic HEAD & SCALP: normocephalic Neck/C-Spine: COMMON NORMALS: full ROM Resp: COMMON NORMALS: normal respiratory effort GI: COMMON NORMALS: non-tender Extremity: LEFT UPPER EXTREMITY: Yes hand & digits (Superficial laceration left ring finger) Neuro: SENSORIUM/ORIENTATION: Yes alert Skin: TRAUMA: laceration (Left ring finger half centimeter laceration) Procedures Laceration Laceration 1: Site: hand Side (If applicable): left Size (cm): 0.5 Description: linear Depth: simple, single layer Pre-repair: wound explored and irrigated extensively Skin layer closed with: other (Skin adhesive) Course Vital Signs: Vital signs: Vital Signs Temperature 98.5 F 01/11/24 17:51 Pulse Rate 94 01/11/24 18:48 Respiratory Rate 16 01/11/24 18:48 Blood Pressure 105/74 01/11/24 18:48 Pulse Oximetry 92 01/11/24 18:48 Oxygen Delivery Me thod Room Air 01/11/24 17:51 MDM - Wound/Laceration Medical Decision Making 43-year-old male patient comes in today for complaints of injury to the left ring finger. On exam patient has a half a centimeter laceration to the distal ring finger. Patient difficulty controlling the bleeding at home which prompted him to come to the ER. Patient has no active bleeding at this time. No foreign body or fractures noted. Differential diagnosis included foreign body, fracture, laceration, need for prophylaxis tetanus. Patient reports tetanus is up-to-date. Wound was cleaned and approximated with skin adhesive. Dressing was applied afterwards for protection. Patient reports understanding of care plan. No radiology studies performed this visit Discharge Plan Discharge Patient Disposition: Home Clinical Impression: Laceration of finger of left hand Qualifiers: Encounter type: initial encounter Finger: ring finger Damage to nail status: without damage Foreign body presence: without foreign body Qualified Code(s): S61.215A - Laceration without foreign body of left ring finger without damage to nail, initial encounter Condition: Stable Prescriptions: No Action hydrocodone-acetaminophen 5-325 mg tablet 1 tab PO 3XD PRN (Reason: Pain) chlorthalidone 25 mg tablet 25 mg PO DAILY meloxicam 15 mg tablet 15 mg PO DAILY Qty: 30 0RF lisinopril 20 mg tablet 20 mg PO DAILY Qty: 90 1RF trazodone 100 mg Tablet 75 mg PO BEDTIME cetirizine 10 mg tablet 10 mg PO DAILY Combivent Respimat 20-100 mcg/actuation mist 2 puff INHALATION QID duloxetine 30 mg Capsule,Delayed Release(Dr/Ec) 30 mg PO DAILY 30 Days Qty: 30 1RF Discharge Orders: Discharge ED (Routine); Ordered 01/11/24 Ordered By: Mynor Muñiz Referrals: Stefani Schmitz PA [Primary Care Provider] - Discharge Diet: Usual diet Discharge Activity: Increase activity as tolerated Patient Instructions: Finger Laceration (ED) Activity Restrictions/Additional Instructions: Keep wound clean and dry. Activity as tolerated. Cover wound for protection. Follow-up with primary care for further evaluation. Coding Level of Care Code ED Blending Tank Tender for Amanda Boone
[2024-01-11 18:48] VITALS: BP 105/74; PULSE 94; RESP 16; O2SAT 92
== END 2024-01-11 18:40 | disposition home or self-care (01) ==
PROVIDERS: Emergency Provider Nurse Practitioner Family; PCP Physician Assistant
DX: S61.215A Laceration without foreign body of left ring finger without damage to nail, initial encounter (principal); E11.9 Type 2 diabetes mellitus without complications; I10 Essential (primary) hypertension; Z87.891 Personal history of nicotine dependence; W26.0XXA Contact with knife, initial encounter; Y93.G1 Activity, food preparation and clean up
CPT/HCPCS: 12001; 99282; A6446

== ENCOUNTER 2024-02-24 21:30 | Emergency (ER) | payer BC, MEDICAID, SELFPAY ==
[2024-02-24 21:35] VITALS: BP 115/76; PULSE 87; RESP 18; TEMP 36.7; O2SAT 93; BMI 31.9
[2024-02-24 23:03] VITALS: BP 117/84; PULSE 92; RESP 16; O2SAT 93
[2024-02-24] MEDS: cephALEXin 500 mg Capsule PO (23:14)
--- NOTE | 2024-02-24 23:14 | ED_ITS ---
HPI - Wound/Laceration General: Chief Complaint: Wound/Laceration Stated Complaint: Left hand laceration Time Seen by Provider: 02/24/24 21:44 Source: patient Mode of arrival: ambulatory Limitations: no limitations History of Present Illness: Patient is a 43-year-old male presents to the emergency department with small laceration to left palm. States this happened while he was using a steak knife to cut open a dinner package, it slipped and he now has a small 1.5 cm laceration to the left palm. States his index finger has intermittently been numb, he does have a history of left humeral ORIF and chronically has weird numbness and sensations in his left upper extremity. Tetanus is up-to-date. No foreign body or contamination. Onset (ago): hour(s) Extremity Location: Left: hand Place: home Patient tetanus UTD: Yes Context: accidental Associated symptoms: Reports numbness; Denies chills, fever(s), nausea or vomiting Related Data Home Medications Medication Instructions Recorded Confirmed trazodone 100 mg tablet 75 mg PO BEDTIME 12/10/22 12/10/23 chlorthalidone 25 mg tablet 25 mg PO DAILY 08/05/23 12/10/23 hydrocodone 5 mg-acetaminophen 325 1 tab PO 3XD PRN Pain 08/05/23 12/10/23 mg tablet cetirizine 10 mg tablet 10 mg PO DAILY 12/01/23 12/10/23 ipratropium 20 mcg-albuterol 100 2 puff inhalation QID 12/01/23 12/10/23 mcg/actuation mist for inhalation (Combivent Respimat) Previous Rx's Medication Instructions Recorded lisinopril 20 mg tablet 20 mg PO DAILY #90 tabs 05/08/22 duloxetine 30 mg capsule,delayed 30 mg PO DAILY 30 days #30 caps 12/03/23 release meloxicam 15 mg tablet 15 mg PO DAILY #30 tabs 12/10/23 cephalexin 500 mg capsule 500 mg PO BID 5 days #10 caps 02/24/24 Allergies Allergy/AdvReac Type Severity Reaction Status Date / Time No Known Allergies Allergy Verified 01/11/24 17:53 Review of Systems General: Reports: 10 or more systems reviewed and unremarkable except in HPI and below Const: Denies: fever(s) or chills Card: Denies: chest pain Resp: Denies: dyspnea GI: Denies: abdominal pain, nausea, vomiting or diarrhea Musc: Denies: extremity pain or joint pain Skin/Breast: Reports: skin pain, skin tenderness and new lesions (Laceration to left palm); Denies: rash Neuro: Reports: numbness in extremities; Denies: headache(s) PFSH ED PFSH: Medical History Tendinopathy of left rotator cuff Osteoarthritis of left shoulder Left anterior shoulder pain Hx of fracture of nose had it set Stool incontinence Hemorrhoids without complication Marijuana dependence Dizziness Chronic GERD New onset type 2 diabetes mellitus HgA1C 04-10-2021 6.3 Smoker Quit 08/31/2021 Spondylolisthesis at L5-S1 level Anxiety and depression HTN (hypertension) Surgical History History of uvulectomy History of esophagogastroduodenoscopy (EGD) Social History Smoking and tobacco/nicotine status: unknown if used tobacco/nicotine Second hand smoke exposure: Yes Alcohol intake: current Alcohol intake frequency: few times a week Substance/Drug Use: current Substance/Drug use frequency: daily Marital status: Current occupational status: unemployed Physical Exam Const: COMMON NORMALS: no acute distress, average body habitus, patient oriented x3, no limitations, healthy appearing, alert and well nourished HENMT: COMMON NORMALS: normocephalic and atraumatic HEAD & SCALP: normocephalic and atraumatic Neck/C-Spine: COMMON NORMALS: full ROM, no lymphadenopathy, supple and no meningeal signs Resp: COMMON NORMALS: normal respiratory effort, No use of accessory muscles and clear to auscultation bilaterally AUSCULTATION: clear to auscultation bilaterally Cardio: COMMON NORMALS: regular rate and regular rhythm RATE: regular rate RHYTHM: regular rhythm Extremity: COMMON NORMALS: full ROM and capillary refill normal NARRATIVE EXTREMITY EXAM: Postoperative scar to left upper extremity Neuro: COMMON NORMALS: patient oriented x3, moves all extremities, no focal motor deficits and no sensory deficits noted SENSORIUM/ORIENTATION: Yes alert MENINGEAL SIGNS: Yes no meningeal signs Skin: COMMON NORMALS: turgor normal NARRATIVE SKIN EXAM: Small 1.5 cm laceration to left palm, no active bleeding foreign body or contamination. Very superficial, involving the superficial dermal layer. GENERAL SKIN EXAM: turgor normal Procedures Laceration Laceration 1: Site: hand Side (If applicable): left Size (cm): 1.5 Description: linear Depth: simple, single layer Local Anesthetic: lidocaine 2% and with epi Amount of anesthesia used (mL): 1 Pre-repair: wound explored Skin layer closed with: nylon Size (cm): 5-0 Number of sutures: 2 Technique: simple, interrupted Course Vital Signs: Vital signs: Vital Signs Temperature 98.0 F 02/24/24 21:35 Pulse Rate 92 02/24/24 23:03 Respiratory Rate 16 02/24/24 23:03 Blood Pressure 117/84 02/24/24 23:03 Pulse Oximetry 93 02/24/24 23:03 Oxygen Delivery Me thod Room Air 02/24/24 23:03 MDM - Wound/Laceration Medical Decision Making Patient had a small laceration to his left palm, this was very superficial and was repaired without complication. His primary complaint when examining him was the pain to his skin associated with the cut, that the numbness reported has been intermittent and due to the superficial nature discussed I think that this is more related to his chronic paresthesias being postoperative left humeral ORIF. Procedure tolerated well, he will have sutures out in 5 days and be started on prophylactic antibiotics due to placement of his laceration. No radiology studies performed this visit Discharge Plan Discharge Patient Disposition: Home Clinical Impression: Laceration of left palm Qualifiers: Encounter type: initial encounter Qualified Code(s): S61.412A - Laceration without foreign body of left hand, initial encounter Condition: Stable Prescriptions: New cephalexin 500 mg capsule 500 mg PO BID 5 Days Qty: 10 0RF No Action hydrocodone-acetaminophen 5-325 mg tablet 1 tab PO 3XD PRN (Reason: Pain) chlorthalidone 25 mg tablet 25 mg PO DAILY meloxicam 15 mg tablet 15 mg PO DAILY Qty: 30 0RF lisinopril 20 mg tablet 20 mg PO DAILY Qty: 90 1RF trazodone 100 mg Tablet 75 mg PO BEDTIME cetirizine 10 mg tablet 10 mg PO DAILY Combivent Respimat 20-100 mcg/actuation mist 2 puff INHALATION QID duloxetine 30 mg Capsule,Delayed Release(Dr/Ec) 30 mg PO DAILY 30 Days Qty: 30 1RF Discharge Orders: Discharge ED (Routine); Ordered 02/24/24 Ordered By: Jarred Romero Referrals: Stefani Schmitz PA [Primary Care Provider] - Patient Instructions: Laceration (ED) Activity Restrictions/Additional Instructions: Sutures out in 5 days. Keep wound dry, when cleaning may dab with warm soap and water and then dab dry afterwards. Antibiotics as prescribed. Tylenol or ibuprofen for pain relief. Return with any signs of infection. Coding Level of Care Code ED Police Captain Senior for Amanda Boone
[2024-02-24 23:20] VITALS: BP 108/74; PULSE 90; O2SAT 94
== END 2024-02-24 23:22 | disposition home or self-care (01) ==
PROVIDERS: Emergency Provider Physician Assistant; PCP Physician Assistant
DX: S61.412A Laceration without foreign body of left hand, initial encounter (principal); W26.0XXA Contact with knife, initial encounter; I10 Essential (primary) hypertension; Z87.891 Personal history of nicotine dependence
CPT/HCPCS: 12001; 99283

== ENCOUNTER 2024-03-17 06:48 | Day surgery (SDC) | payer BC, MEDICAID, SELFPAY ==
[2024-03-17 06:58] VITALS: BP 144/102; PULSE 89; RESP 18; TEMP 36.8; O2SAT 96; BMI 30.7
[2024-03-17] MEDS: sodium chloride 0.9% 500 ML 15 ML IV (07:13)
--- NOTE | 2024-03-17 07:56 | ANES.PREANE2 ---
Pre-Anesthetic Assessment Height/Weight: Height 5 ft 5 in Weight 185 lb Temp Pulse Resp BP Pulse Ox O2 Del Method 98.2 F 89 18 144/102 96 Room Air 03/17/24 06:58 03/17/24 06:58 03/17/24 06:58 03/17/24 06:58 03/17/24 06:58 03/17/24 06:58 Preop Diagnosis: Gastritis Operation Date: 03/17/24 08:00 Proposed Procedures p EGD 29535, 46818, G0121. K21.9, Z12.11(Not Applicable) - Pedrito Hodges DO s Colonoscopy(Not Applicable) - Pedrito Hodges DO Was Beta Jakub taken within 24 hours: N/A Was Clonidine taken within 24 hours: N/A Last intake: Intake Last Liquid Date 03/16/24 Last Liquid Time 23:50 Last Solid Date 03/15/24 Last Solid Time 19:00 Social Tobacco Occasional alcohol use Exam alert, oriented x 3, clear to auscultation bilaterally and regular rate & rhythm Airway Submandibular: within normal limits Cervical ROM: Other (Cervical radiculopathy) Mallampati: Class II Dentition: other (Edentulous) Anesthetic Plan ASA status: 3 Anesthesia: MAC Other: No prior issues with anesthesia Completed bowel prep History of hypertension on lisinopril and chlorthalidone preop BP 144/102 GERD on Protonix Current smoker Cervical neck issues Prior EKG showing sinus tachycardia METs greater than 4 Plan for MAC anesthetic Medications/Allergies Home Medications Medication Instructions Recorded Confirmed Last Taken Type lisinopril 20 mg tablet 20 mg PO DAILY #90 tabs 05/08/22 03/15/24 03/16/24 Rx trazodone 100 mg tablet 75 mg PO BEDTIME 12/10/22 03/15/24 03/14/24 History chlorthalidone 25 mg tablet 25 mg PO DAILY 08/05/23 03/15/24 03/16/24 History ipratropium 20 mcg-albuterol 100 2 puff inhalation QID 12/01/23 03/15/24 03/16/24 History mcg/actuation mist for inhalation (Combivent Respimat) pantoprazole 40 mg tablet,delayed 40 mg PO BID 6 weeks #84 tabs 03/08/24 03/15/24 03/16/24 Rx release (Protonix) apple cider vinegar 450 mg PO DAILY 03/15/24 03/15/24 03/16/24 History folic acid 400 mcg tablet 0.4 mg PO DAILY 03/15/24 03/15/24 03/16/24 History vitamin B complex 1 cap PO DAILY 03/15/24 03/15/24 03/16/24 History Allergies Allergy/AdvReac Type Severity Reaction Status Date / Time No Known Allergies Allergy Verified 03/15/24 10:11 Current Medications Generic Name Dose Route Start Last Admin Trade Name Freq PRN Reason Stop Dose Admin Sodium Chloride 500 mls @ 15 mls/hr 03/17/24 06:49 03/17/24 07:13 Sodium Chloride 0.9% IV 03/18/24 06:48 15 mls/hr .Q24H PRN Administration COLONOSCOPY FLUIDS PFSH Anesthesia Medical History (Updated 03/08/24 @ 11:34 by Pedrito Hodges DO) Tubulovillous adenoma of colon Tendinopathy of left rotator cuff Osteoarthritis of left shoulder Left anterior shoulder pain Hx of fracture of nose had it set Stool incontinence Hemorrhoids without complication Marijuana dependence Dizziness Chronic GERD New onset type 2 diabetes mellitus HgA1C 04-10-2021 6.3 Smoker Quit 08/31/2021 Spondylolisthesis at L5-S1 level Anxiety and depression HTN (hypertension) Surgical History (Updated 03/08/24 @ 11:34 by Pedrito Hodges DO) Hx of colonoscopy DR Hodges History of uvulectomy History of esophagogastroduodenoscopy (EGD) Family History Family/Other Cancer ovarian cancer Social History Smoking and tobacco/nicotine status: current every day tobacco/nicotine user (Marijuana) cigarettes Second hand smoke exposure: Yes Alcohol intake: current Alcohol intake frequency: few times a week Substance/Drug Use: current Substance/Drug use frequency: daily Marital status: Current occupational status: unemployed Data Anesthesia Cardiac Studies: No Data to Display
--- NOTE | 2024-03-17 08:24 | W.PM.OPSUD ---
Surgery/Procedure H&P Update DATE OF PROCEDURE: March 17, 2024 DATE H&P PERFORMED: 03/08/24 H&P UPDATE INFORMATION: I have reviewed H&P completed within last 30 days, I have examined patient prior to procedure and No changes to prior documentation PREOP DIAGNOSIS: Gastritis PLANNED PROCEDURE: Operation Date: 03/17/24 08:00 Proposed Procedures p EGD 28358, 43250, G0121. K21.9, Z12.11(Not Applicable) - DO ann King Colonoscopy(Not Applicable) - Pedrito Hodges DO
[2024-03-17 08:52] VITALS: BP 121/94; PULSE 84; RESP 20; TEMP 36.7; O2SAT 94
[2024-03-17 09:13] VITALS: BP 150/110; PULSE 83; RESP 17; O2SAT 95
[2024-03-17 09:25] VITALS: BP 127/88; PULSE 77; RESP 18; O2SAT 96
--- NOTE | 2024-03-17 09:33 | ANE.PACU2 ---
Inpatient post-anesthesia follow up: Airway intact: Yes Vital signs: Temperature 98.1 F Pulse Rate 77 Respiratory Rate 18 Blood Pressure 127/88 Pulse Oximetry 96 Oxygen Delivery Me thod Room Air Oxygen Flow Rate 4 Fraction of Inspir ed Oxygen Hydration adequate: Yes Nausea and vomiting: No Pain level: 1 Mental status: Baseline
== END 2024-03-17 09:33 | disposition home or self-care (01) ==
PROVIDERS: PCP Physician Assistant; Visit Provider Surgery
PROC: 0DJ08ZZ Inspection of Upper Intestinal Tract, Via Natural or Artificial Opening Endoscopic (ICD-10-PCS; CPT 43235; principal; 2024-03-17 08:00)
PROC: 0DJD8ZZ Inspection of Lower Intestinal Tract, Via Natural or Artificial Opening Endoscopic (ICD-10-PCS; CPT 45378; 2024-03-17 08:00)
DX: Z12.11 Encounter for screening for malignant neoplasm of colon (principal); K21.9 Gastro-esophageal reflux disease without esophagitis; Z86.0100 Personal history of colon polyps, unspecified; K42.9 Umbilical hernia without obstruction or gangrene; D12.5 Benign neoplasm of sigmoid colon; D12.8 Benign neoplasm of rectum; I10 Essential (primary) hypertension; Z87.891 Personal history of nicotine dependence; Z86.19 Personal history of other infectious and parasitic diseases; E11.9 Type 2 diabetes mellitus without complications
CPT/HCPCS: 43239; 45385; 88305; J2704; J7040

== ENCOUNTER 2024-03-23 05:47 | Day surgery (SDC) | payer BC, MEDICAID, SELFPAY ==
[2024-03-23] VITALS (9 sets, daily range): BP systolic 140–171; BP diastolic 92–124; PULSE 75–91; RESP 15–16; TEMP 36.6–37.1; O2SAT 92–100; BMI 31.6
[2024-03-23] MEDS: sodium chloride 0.9% 1,000 ML 30 ML IV (06:29)
--- NOTE | 2024-03-23 07:00 | ANES.PREANE2 ---
Pre-Anesthetic Assessment Height/Weight: Height 1.65 m Weight 86.183 kg Temp Pulse Resp BP Pulse Ox O2 Del Method 97.8 F 75 16 153/93 95 Room Air 03/23/24 06:05 03/23/24 06:05 03/23/24 06:05 03/23/24 06:05 03/23/24 06:05 03/23/24 06:05 Operation Date: 03/23/24 07:00 Proposed Procedures p Laparoscopic Umbilical Hernia Repair with mesh 62395, K42.9(Not Applicable) - Pedrito Hodges DO Familial anesthetic complications: None Was Beta Jakub taken within 24 hours: N/A Was Clonidine taken within 24 hours: N/A Last intake: Intake Last Liquid Date 03/22/24 Last Liquid Time 23:00 Last Solid Date 03/22/24 Last Solid Time 22:00 Social Tobacco and No alcohol marijuana Exam alert, oriented x 3, clear to auscultation bilaterally and regular rate & rhythm Airway Mallampati: Class II Dentition: other (no teeth) CV/HEM Hypertension GI Gastroesophageal Reflux Disease Anesthetic Plan ASA status: 2 Anesthesia: General Risk of > 500 ml blood loss (7ml/kg in children): No Medications/Allergies Home Medications Medication Instructions Recorded Confirmed Last Taken Type lisinopril 20 mg tablet 20 mg PO DAILY #90 tabs 05/08/22 03/22/24 03/22/24 Rx trazodone 100 mg tablet 75 mg PO BEDTIME 12/10/22 03/22/24 03/22/24 History chlorthalidone 25 mg tablet 25 mg PO DAILY 08/05/23 03/22/24 03/22/24 History ipratropium 20 mcg-albuterol 100 2 puff inhalation QID 12/01/23 03/22/24 03/16/24 History mcg/actuation mist for inhalation (Combivent Respimat) pantoprazole 40 mg tablet,delayed 40 mg PO BID 6 weeks #84 tabs 03/08/24 03/22/24 03/22/24 Rx release (Protonix) apple cider vinegar 450 mg PO DAILY 03/15/24 03/22/24 03/22/24 History folic acid 400 mcg tablet 0.4 mg PO DAILY 03/15/24 03/22/24 03/22/24 History vitamin B complex 1 cap PO DAILY 03/15/24 03/22/24 03/22/24 History hydrocortisone 2.5 % topical cream 1 applic NE QID 3 weeks #30 grams 03/17/24 03/22/24 03/22/24 Rx with perineal applicator (Procto-Med HC) Allergies Allergy/AdvReac Type Severity Reaction Status Date / Time No Known Allergies Allergy Verified 03/23/24 06:01 Current Medications Generic Name Dose Route Start Last Admin Trade Name Freq PRN Reason Stop Dose Admin Sodium Chloride 1,000 mls @ 30 mls/hr 03/23/24 06:00 03/23/24 06:29 Sodium Chloride 0.9% IV 03/24/24 05:59 30 mls/hr .Q24H JAZZY Administration PFSH Anesthesia Medical History (Updated 03/08/24 @ 11:34 by Pedrito Hodges DO) Tubulovillous adenoma of colon Tendinopathy of left rotator cuff Osteoarthritis of left shoulder Left anterior shoulder pain Hx of fracture of nose had it set Stool incontinence Hemorrhoids without complication Marijuana dependence Dizziness Chronic GERD New onset type 2 diabetes mellitus HgA1C 04-10-2021 6.3 Smoker Quit 08/31/2021 Spondylolisthesis at L5-S1 level Anxiety and depression HTN (hypertension) Surgical History (Updated 03/08/24 @ 11:34 by Pedrito Hodges DO) Hx of colonoscopy DR Hodges History of uvulectomy History of esophagogastroduodenoscopy (EGD) Family History Family/Other Cancer ovarian cancer Social History Smoking and tobacco/nicotine status: current every day tobacco/nicotine user (Marijuana) cigarettes Second hand smoke exposure: Yes Alcohol intake: current Alcohol intake frequency: few times a week Substance/Drug Use: current Substance/Drug use frequency: daily Marital status: Current occupational status: unemployed Data Anesthesia Cardiac Studies: No Data to Display
--- NOTE | 2024-03-23 07:01 | W.PM.OPSUD ---
Surgery/Procedure H&P Update DATE OF PROCEDURE: March 23, 2024 DATE H&P PERFORMED: 03/08/24 H&P UPDATE INFORMATION: I have reviewed H&P completed within last 30 days, I have examined patient prior to procedure and No changes to prior documentation PLANNED PROCEDURE: Operation Date: 03/23/24 07:00 Proposed Procedures p Laparoscopic Umbilical Hernia Repair with mesh 61256, K42.9(Not Applicable) - Pedrito Hodges, DO
[2024-03-23] MEDS: ceFAZolin 2,000 mg SDV 2000 MG IVP (07:02)
[2024-03-23] MEDS: lidocaine-epi 2% PF 1:200,000 20 mL SDV XX (07:26)
--- NOTE | 2024-03-23 07:43 | PM.OP ---
Operative Report Date of procedure: March 23, 2024 Pre-op diagnosis: Umbilical hernia Post-op diagnosis: same Procedure done: Laparoscopic repair of umbilical hernia with mesh Implants: 11 cm round Ventralight mesh Specimens removed/disposition: Hernia sac Surgeon: Pedrito Hodges DO Anesthesia: General and Local Estimated blood loss (mL): 5 Complications: None apparent Brief History: This is a very pleasant 43-year-old gentleman who presented my office with abdominal pain around an umbilical hernia. He desired repair. Laparoscopic repair with mesh was indicated. The risks and benefits were explained and documented. Procedure: Patient was wheeled into the operative room and placed on the OR table in a supine position. Abdomen was inspected prepped and draped in usual sterile fashion. Time-out was performed and all present were in agreement. A 15 blade scalp was used to make a 5 millimeter incision left upper quadrant. A Veress needle was placed into the incision and intra-abdominal insufflation was brought to 15 millimeters of mercury. A 12 millimeter trocar was placed into the left lower quadrant. The energy but device was then used to cut out the hernia sac. The hernia defect measured 1.5 cm in diameter. An 11 cm Ventralight mesh was placed into the abdomen and brought up through the umbilicus using an the Miguel-Betty. The mesh was then tacked in place in a double crown fashion. The skeleton of the mesh was removed via the left lower quadrant. The hernia sac was then removed from the abdomen via the left lower quadrant. The left lower quadrant port site was closed with an 0 Vicryl suture in a Miguel-Betty in a [id number] fashion. Incisions were closed with 4 O Vicryl in a subcuticular interrupted fashion. Skin glue was applied. A dressing that included cotton balls and a Tegaderm was placed over the umbilicus. Patient tolerated the procedure well.
[2024-03-23] MEDS: HYDROmorphone 1 mg/mL INJ 1 mL 0.5 MG IVP (08:12)
[2024-03-23] MEDS: HYDROcodone-acetaminophen 7.5-325 mg Tablet 1 TAB PO (08:42)
--- NOTE | 2024-03-23 09:20 | ANE.PACU2 ---
Inpatient post-anesthesia follow up: Airway intact: Yes Vital signs: Temperature 98 F Pulse Rate 83 Respiratory Rate 15 Blood Pressure 157/92 Pulse Oximetry 96 Oxygen Delivery Me thod Room Air Oxygen Flow Rate Fraction of Inspir ed Oxygen Hydration adequate: Yes Nausea and vomiting: No Pain level: 1 Mental status: Baseline
== END 2024-03-23 09:20 | disposition home or self-care (01) ==
PROVIDERS: PCP Physician Assistant; Visit Provider Surgery
PROC: 0WQF4ZZ Repair Abdominal Wall, Percutaneous Endoscopic Approach (ICD-10-PCS; CPT 49591; principal; 2024-03-23 07:00)
DX: K42.9 Umbilical hernia without obstruction or gangrene (principal); I10 Essential (primary) hypertension; K21.9 Gastro-esophageal reflux disease without esophagitis; F41.9 Anxiety disorder, unspecified; F32.A Depression, unspecified; F17.200 Nicotine dependence, unspecified, uncomplicated
CPT/HCPCS: 49591; 88302; C1781; J0690; J1100; J1171; J1885; J2405; J2704; J3010; J3490; J7030

== ENCOUNTER → 2024-06-11 09:55 | Outpatient (BNVA) | payer BC, MEDICAID, SELFPAY | PROVIDERS: PCP Physician Assistant; Visit Provider Nurse Practitioner | DX: S83.206A Unspecified tear of unspecified meniscus, current injury, right knee, initial encounter (principal); M17.0 Bilateral primary osteoarthritis of knee; X58.XXXA Exposure to other specified factors, initial encounter | CPT/HCPCS: 73560; 73565 ==

== ENCOUNTER 2024-06-24 15:51 | Outpatient (CLI) | payer BC, MEDICAID, SELFPAY ==
--- NOTE | 2024-06-24 16:00 | MR_ITS ---
WS: [id number] MRI RIGHT KNEE NONCONTRAST TECHNIQUE: Axial PD, coronal PD fat sat, coronal PD, sagittal PD, and sagittal PD fat-sat images obtained. CLINICAL INFORMATION: right knee pain COMPARISON: MRI 06/02/2021 FINDINGS: Complete tear of the ACL unchanged from previous. Normal PCL. Moderate to advanced arthritis involving the medial joint compartment with progressed joint space narrowing. Grade III chondromalacia medial joint compartment with hypertrophic changes along the joint line. Moderate degenerative narrowing la teral joint compartment and patellofemoral articulation. Grade III chondromalacia patella. Normal medial lateral patellar retinaculum. Tiny suprapatellar effusion. Normal medial lateral collateral ligaments. Normal popliteal fossa. Chronic thinning of the medial lateral meniscus worse involving the medial meniscus with chronic intrasubstance signal abnormality. This is progressed compared to previous. Fibular head appears normal. Distal quadriceps and patella tendons appear intact. MR/MR knee RT wo con* [id number] IMPRESSION: 1. High-grade complete tear of the ACL appears unchanged. Normal PCL. 2. Moderate to advanced degenerative narrowing medial joint compartment with g rade III chondromalacia and joint space narrowing. Hypertrophic changes along t he joint line. 3. Grade III chondromalacia patella. 4. Chronic progressed degeneration of the medial and lateral meniscus with chr onic thinning. Outbridge grading: grade III: partial-thickness cartilage loss with focal ulcer ation
== END 2024-06-24 15:52 | disposition home or self-care (01) ==
PROVIDERS: PCP Physician Assistant; Visit Provider Nurse Practitioner
DX: S83.511A Sprain of anterior cruciate ligament of right knee, initial encounter (principal); X58.XXXA Exposure to other specified factors, initial encounter; M94.261 Chondromalacia, right knee; R93.6 Abnormal findings on diagnostic imaging of limbs; M23.300 Other meniscus derangements, unspecified lateral meniscus, right knee; M23.303 Other meniscus derangements, unspecified medial meniscus, right knee; M17.11 Unilateral primary osteoarthritis, right knee
CPT/HCPCS: 73721

== ENCOUNTER 2024-08-24 11:36 | Day surgery (SDC) | payer BC, MEDICAID, SELFPAY ==
[2024-08-24 11:52] VITALS: BP 157/101; PULSE 88; RESP 18; TEMP 36.1; O2SAT 96
[2024-08-24] MEDS: sodium chloride 0.9% 1,000 ML 15 ML IV (12:09)
--- NOTE | 2024-08-24 12:56 | ANES.PREANE2 ---
Pre-Anesthetic Assessment Height/Weight: Height 1.65 m Weight 82.1 kg Temp Pulse Resp BP Pulse Ox O2 Del Method 97.0 F L 88 18 157/101 96 Room Air 08/24/24 11:52 08/24/24 11:52 08/24/24 11:52 08/24/24 11:52 08/24/24 11:52 08/24/24 11:52 Preop Diagnosis: Stomach issues Operation Date: 08/24/24 13:00 Proposed Procedures p EGD [id number] R12(Not Applicable) - Satnam Gruber MD Familial anesthetic complications: none Was Beta Jakub taken within 24 hours: N/A Was Clonidine taken within 24 hours: N/A Last intake: Intake Last Liquid Date 08/23/24 Last Liquid Time 23:00 Last Solid Date 08/23/24 Last Solid Time 23:00 Social Tobacco and No alcohol Uses marijuana gummies daily Exam alert, oriented x 3, clear to auscultation bilaterally and regular rate & rhythm Airway Submandibular: within normal limits Cervical ROM: within normal limits Mallampati: Class II Dentition: false History/ROS No significant history except as noted and No significant complaints Pulmonary Chronic Obstructive Pulmonary Disease, Exertional Dyspnea and Sleep Apnea doesn't wear CPAP CV/HEM Hypertension None reported Hepatic None reported GI None reported Metabolic None reported Musc/skel None reported Disabled Neuropsych Anxiety Anesthetic Plan ASA status: 3 Anesthesia: MAC Risk of > 500 ml blood loss (7ml/kg in children): No Medications/Allergies Home Medications ?Medication ?Instructions ?Recorded ?Confirmed ?Last Taken ?Type lisinopril 20 mg tablet 20 mg PO DAILY #90 tabs 05/08/22 08/23/24 08/23/24 Rx trazodone 100 mg tablet 75 mg PO BEDTIME 12/10/22 08/23/24 08/23/24 History chlorthalidone 25 mg tablet 25 mg PO DAILY 08/05/23 08/23/24 08/23/24 History ipratropium 20 mcg-albuterol 100 2 puff inhalation QID 12/01/23 08/23/24 08/23/24 History mcg/actuation mist for inhalation (Combivent Respimat) vitamin B complex 1 cap PO DAILY 03/15/24 08/23/24 08/23/24 History pantoprazole 40 mg tablet,delayed 40 mg PO BID 6 weeks #84 tabs 06/09/24 08/23/24 08/23/24 Rx release (Protonix) sucralfate 1 gram tablet (Carafate) 1 g PO BID 6 weeks #84 tabs 08/09/24 08/23/24 08/23/24 Rx Allergies Allergy/AdvReac Type Severity Reaction Status Date / Time No Known Allergies Allergy Verified 08/23/24 09:09 Current Medications Generic Name Dose Route Start Last Admin Trade Name Thomasq PRN Reason Stop Dose Admin Sodium Chloride 1,000 mls @ 15 mls/hr 08/24/24 11:44 08/24/24 12:09 Sodium Chloride 0.9% IV 08/25/24 11:43 15 mls/hr .Q24H PRN Administration COLONOSCOPY FLUIDS PFSH Anesthesia Medical History Chondromalacia patellae of right knee Old complete ACL tear Primary localized osteoarthritis of knees, bilateral Tubulovillous adenoma of colon Tendinopathy of left rotator cuff Osteoarthritis of left shoulder Left anterior shoulder pain Hx of fracture of nose had it set Stool incontinence Hemorrhoids without complication Marijuana dependence Dizziness Chronic GERD New onset type 2 diabetes mellitus HgA1C 04-10-2021 6.3 Smoker Quit 08/31/2021 Spondylolisthesis at L5-S1 level Anxiety and depression HTN (hypertension) Surgical History History of umbilical hernia repair Hx of colonoscopy DR Hodges History of uvulectomy History of esophagogastroduodenoscopy (EGD) Family History Family/Other Cancer ovarian cancer Social History Smoking and tobacco/nicotine status: current every day tobacco/nicotine user cigarettes Second hand smoke exposure: Yes Alcohol intake: current Alcohol intake frequency: few times a week Substance/Drug Use: current Substance/Drug use frequency: daily Marital status: Current occupational status: unemployed
--- NOTE | 2024-08-24 13:10 | W.PM.OPSUD ---
Surgery/Procedure H&P Update DATE OF PROCEDURE: August 24, 2024 DATE H&P PERFORMED: 08/09/24 H&P UPDATE INFORMATION: I have reviewed H&P completed within last 30 days, I have examined patient prior to procedure and No changes to prior documentation PREOP DIAGNOSIS: Stomach issues PLANNED PROCEDURE: Operation Date: 08/24/24 13:00 Proposed Procedures p EGD [id number] R12(Not Applicable) - Satnam Gruber MD
[2024-08-24 13:20] VITALS: BP 146/95; PULSE 97; RESP 25; TEMP 36.2; O2SAT 98
[2024-08-24 13:32] VITALS: BP 136/86; PULSE 84; RESP 16; O2SAT 95
--- NOTE | 2024-08-24 13:39 | ANE.PACU2 ---
Inpatient post-anesthesia follow up: Airway intact: Yes Vital signs: Temperature 97.2 F Pulse Rate 82 Respiratory Rate 16 Blood Pressure 130/80 Pulse Oximetry 96 Oxygen Delivery Me thod Room Air Oxygen Flow Rate Fraction of Inspir ed Oxygen Hydration adequate: Yes Nausea and vomiting: No Pain level: 1 Mental status: Baseline
[2024-08-24 13:44] VITALS: BP 130/80; PULSE 82; RESP 16; O2SAT 96
== END 2024-08-24 13:49 | disposition home or self-care (01) ==
PROVIDERS: PCP Physician Assistant; Visit Provider Student in an Organized Health Care Education/Training Program
PROC: 0DJ08ZZ Inspection of Upper Intestinal Tract, Via Natural or Artificial Opening Endoscopic (ICD-10-PCS; principal; 2024-08-24 13:00)
DX: K29.50 Unspecified chronic gastritis without bleeding (principal); J44.9 Chronic obstructive pulmonary disease, unspecified; E11.9 Type 2 diabetes mellitus without complications; G47.30 Sleep apnea, unspecified; F17.210 Nicotine dependence, cigarettes, uncomplicated; I10 Essential (primary) hypertension; Z79.899 Other long term (current) drug therapy
CPT/HCPCS: 43239; 88305; 88342; J2704; J7030

== ENCOUNTER → 2025-01-24 09:10 | Outpatient (BNVA) | payer BC, MEDICAID, SELFPAY | PROVIDERS: PCP Physician Assistant; Visit Provider Nurse Practitioner | DX: M65.4 Radial styloid tenosynovitis [de Quervain] (principal); M79.645 Pain in left finger(s) | CPT/HCPCS: 73130 ==

== ENCOUNTER 2025-02-07 09:12 | Outpatient (CLI) | payer BC, MEDICAID, SELFPAY ==
--- NOTE | 2025-02-07 09:30 | MR_ITS ---
WS: [id number] MRI LEFT HAND WITHOUT CONTRAST. COMPARISON: Radiographs 01/24/2025 Multiplanar, multisequence imaging is performed without contrast. No acute marrow edema. There are a few small subchondral cysts involving the base of the first metacarpal. There is narrowing of the first carpal metacarpal joint space with small marginal osteophytes. The anterior oblique ligament is identified and being displaced near the tubercle of the trapezium. Subchondral cysts at the origin from the trapezium. The ligament is being displaced and elongated by an osteophyte and lateral subluxation of the thumb. No full-thickness tear. Moderate narrowing of the first carpometacarpal joint. No ligament or tendon tears although there is degenerative arthritis and osteophytosis. Radial and ulnar collateral ligaments involving the carpometacarpal joint are intact. No muscle atrophy or edema. The adjacent extensor pollicis brevis and abductor pollicis longus tendons appear to be normal caliber. Only a very small portion of these tendons are identified as this is an MRI of the hand. MR/MR hand LT wo con* [id number] IMPRESSION: 1. Moderate degenerative osteoarthritis at the first carpometacarpal joint. 2. Slight lateral subluxation of the first metacarpal. 3. The anterior oblique ligament is identified and is being displaced near the tubercle of the trapezium by an osteophyte. Subchondral cysts are noted near t he tubercle of the trapezium associated with the insertion site of the anterior oblique ligament. Cannot confirm acute ligament tears. 4. Only a small segment of the extensor pollicis brevis and abductor pollicis longus tendons are identified near the wrist. It would be difficult to exclude de Quervain's tenosynovitis as the wrist is not included on the hand MRI. The p ortions of the tendons identified are normal.
== END 2025-02-07 09:13 | disposition home or self-care (01) ==
PROVIDERS: PCP Physician Assistant; Visit Provider Nurse Practitioner
DX: M25.542 Pain in joints of left hand (principal); M19.042 Primary osteoarthritis, left hand; M24.242 Disorder of ligament, left hand; M25.742 Osteophyte, left hand; R93.6 Abnormal findings on diagnostic imaging of limbs; M85.642 Other cyst of bone, left hand
CPT/HCPCS: 73218